=== PATIENT | male | born 1935 | race Caucasian/White ===

== ENCOUNTER 2016-11-20 07:58 | Inpatient (IN) | payer OTHER, MEDICARE ==
[~2016-11-20] VITALS: Ht 172.7 cm; Wt 96.2 kg
[~2016-11-20 07:58] MED LIST: ASPIRIN CHILDRE81 MG PO; ASPIRIN EC325 MG PO; ATORVASTATIN CA40 MG PO; ATORVASTATIN CA80 MG PO; AZOR 10 MG-40 M1 TAB PO; AZOR 5 MG-20 MG1 TAB PO; BENADRYL ALLERG25 M1 PO; CHROMIUM PICO500 MCG PO; CLOPIDOGREL75 M1 PO; EFFIENT10 MG PO; FISH OIL CONCEN1 SGL PO; GARLIC OIL1000 M1 PO; GARLIC PO; GUAIFENESIN-COD10 ML PO; HEPARIN 2525000 UNIT IV; IMDUR 60MG TAB60 MG PO; IRON325 M1 PO; ISOSORBIDE MONO30 M1 PO; LASIX20 MG PO; LASIX40 MG PO; LASIX80 M1 PO; LOPRESSOR 25MG25 MG PO; LOSARTAN POTASS25 MG PO; MAGNESIUM OXID400 MG PO; MAGNESIUM500 M2 PO; METOPROLOL SUCC25 M1 PO; METOPROLOL SUCC50 M1 PO; MORPHINE10 MG/ML IV; MS CONTIN30 MG PO; MULTIPLE VITAM1 EAC2 PO; NEXIUM 40MG40 MG PO; NITROSTAT 0.4MG1 BO2 SL; OMEGA-3 KRILL1 EAC3 PO; POTASSIUM GLUC550 M1 PO; RANEXA 500MG500 MG PO; SIMVASTATIN20 MG PO; THE MEDICINE S400 IU PO; TYLENOL TAB 32325 MG PO; VITAMIN D1000 IU PO; VITAMIN D32000 UNI1 PO; ZINC1 TAB PO; ZINC30 MG PO; ZINC50 M4 PO; [UNRECOGNIZED DRUG - OTHER] PO
--- NOTE | 2016-11-20 08:15 | NUR ---
80 Y/O MALE BIBA FROM HOME FOR EVAL OF SOB SINCE YESTERDAY; PT ARRIVES ALERT AND ORIENTED X 4, SPEAKING CLEARLY WITH NO DISTRESS OR DEFICITS NOTED. PT STATES HE BEGAN TO FEEL SOB YESTERDAY, WHICH HAS GOTTEN WORSE WITH ANY ACTIVITY OR EXERTION. DENIES CHEST PAIN. DENIES PAIN. DENIES N/V/D. DENIES CHANGES IN APPETITE/PO INTAKE. STATES "I JUST NEED THAT IV LASIX AND ILL BE ALL FIXED UP". SAT 94-95% ON RA. PT STATES HE IS CLAUSTROPHOBIC AND DOES NOT LIKE BEING IN A ROOM ALONE; ALSO REQUESTING TO STAY IN PERSONAL CLOTHES WITH DOOR OPEN - AGREEABLE TO STAYING ON RETAIL RESET [employer]. NORMAL SINUS WITH LBBB, RATE 80S EKG COMPLETE. WHITNEY Mckeon AT THE BEDSIDE
--- NOTE | 2016-11-20 08:22 | ED DYSPNEA/ASTHMA COMPLAINT ---
History of Present Illness General Chief Complaint: Dyspnea (COPD, CHF, Other) Stated Complaint: BIBA SOB Source: patient, old records, EMS Exam Limitations: no limitations Allergies Coded Allergies: acetaminophen (From VICODIN) (Intermediate, GI UPSET 11/20/16) gabapentin (From NEURONTIN) (Intermediate, INCREASED AGGITATION 11/20/16) hydrocodone (GI DISTRESS 11/20/16) oxycodone (GI DISTRESS 11/20/16) Triage Note: 80 Y/O MALE FELISHA FROM HOME FOR EVAL OF SOB SINCE YESTERDAY; PT ARRIVES ALERT AND ORIENTED X 4, SPEAKING CLEARLY WITH NO DISTRESS OR DEFICITS NOTED. PT STATES HE BEGAN TO FEEL SOB YESTERDAY, WHICH HAS GOTTEN WORSE WITH ANY ACTIVITY OR EXERTION. DENIES CHEST PAIN. DENIES PAIN. DENIES N/V/D. DENIES CHANGES IN APPETITE/PO INTAKE. STATES "I JUST NEED THAT IV LASIX AND ILL BE ALL FIXED UP". SAT 94-95% ON RA. PT STATES HE IS CLAUSTROPHOBIC AND DOES NOT LIKE BEING IN A ROOM ALONE; ALSO REQUESTING TO STAY IN PERSONAL CLOTHES WITH DOOR OPEN - AGREEABLE TO STAYING ON IT [employer]. NORMAL SINUS WITH LBBB, RATE 80S EKG COMPLETE. WHITNEY Mckeon AT THE BEDSIDE Triage Nurses Notes Reviewed? yes HPI: Patient is a 80-year-old male presents complaining of dyspnea. Dyspnea onset yesterday. Dyspnea is moderate at rest, worsens with minimal exertion. Positive associated orthopnea. Dyspnea awaken patient from sleep at approximately 4 AM this morning. Patient took a dose of his nitroglycerin at 4: 45 AM with mild improvement. Patient denies chest pain, palpitations, lower extremity edema, cough, fevers, chills. (SUSIE GREEN) Vital Signs & Intake/Output Vital Signs & Intake/Output Vital Signs Date Time Temp Pulse Resp B/P Pulse O2 O2 Flow FiO2 Ox Delivery Rate 11/20 1010 96.8 90 18 133/74 98 Room Air 11/20 0831 95 Room Air 11/20 0803 98.5 97 24 142/80 95 Room Air Reconcile Medications Aspirin (Aspirin*) 81 MG TAB.CHEW 1 TAB PO DAILY HEART HEALTH (Reported) Atorvastatin Calcium 80 MG TABLET 1 TAB PO DAILY CHOLESTEROL (Reported) Cholecalciferol (Vitamin D3) (Vitamin D3) 2,000 UNIT TABLET 1 TAB PO DAILY SUPPLEMENT (Reported) Citalopram Hydrobromide (Citalopram HBr) 20 MG TABLET 1 TAB PO DAILY MENTAL HEALTH (Reported) Clopidogrel Bisulfate (Clopidogrel) 75 MG TABLET 1 TAB PO DAILY BLOOD THINNER (Reported) Furosemide (Lasix) 80 MG TABLET 1 TAB PO DAILY WATER PILL (Reported) Garlic (Garlic Oil) 1,000 MG CAPSULE 1 CAP PO DAILY SUPPLEMENT (Reported) Isosorbide Mononitrate (Isosorbide Mononitrate ER) 30 MG TAB.ER.24H 3 TAB PO DAILY ANGINA (Reported) Krill/Om-3/Dha/Epa/Phospho/Ast ([place]-3 Krill Oil 1,000 MG) 1,000-230MG CAPSULE 1 CAP PO DAILY SUPPLEMENT (Reported) Losartan Potassium 50 MG TABLET 0.5 TAB PO DAILY HEART (Reported) Magnesium Oxide (Magnesium) 500 MG CAPSULE 1 CAP PO DAILY SUPPLEMENT ( Reported) Metoprolol Succinate 25 MG TAB 0.5 TAB PO DAILY HEART (Reported) Multivitamin (Multiple Vitamins) 1 EACH TABLET 2 TAB PO DAILY SUPPLEMENT ( Reported) Nitroglycerin 0.4 MG TAB.SUBL 1 TAB SL AD PRN CHEST PAIN (Reported) 1st sign of attack; may repeat every 5 minutes until relief; if pain persists after 3 tablets in 15 minutes, prompt medical att Robitussin AC (Guaifenesin-Codeine Syrup) 200 MG-20 MG/10 ML LIQUID 10 ML PO Q6P PRN COUGH Zinc Gluconate (ZINC) 50 MG TABLET 1 TAB PO DAILY SUPPLEMENT (Reported) (THAI CONTEH,JAZZY Zamudio) Past History Travel History Traveled to [place] past 21 day No Medical History Any Pertinent Medical History? see below for history Neurological: NONE EENT: NONE Cardiovascular: angina, CAD (- status post angioplasty X 7), CHF, hypertension, hyperlipidemia, myocardial infarction (X 3), STENT PLACEMENT Respiratory: NONE Gastrointestinal: NONE Hepatic: NONE Renal: nephrolithiasis Musculoskeletal: gout Psychiatric: anxiety, claustrophobia Endocrine: NONE Blood Disorders: NONE Cancer(s): NONE ELECTROLYSIS INVESTIGATOR/Reproductive: NONE Other Medical Hx: RETROPERITONEAL HEMATOMA History of MRSA: No History of VRE: No History of CDIFF: No Surgical History Surgical History: hernia repair-inguinal (left), hip replacement (right), CARDIAC STENTS Psychosocial History Who do you live with Patient/Self Services at Home None What is your primary language Nepalese Tobacco Use: Never used ETOH Use: occasional use Illicit Drug Use: denies illicit drug use Family History Family History, If Any: MOTHER FH: gastric cancer Relation not specified for: FH: CAD (coronary artery disease) Hx Contributory? No (SUSIE GREEN) Review of Systems Review of Systems Constitutional: Denies: chills, fever. EENTM: Reports: no symptoms. Respiratory: Reports: short of breath. Denies: cough. Cardiovascular: Reports: orthopena. Denies: chest pain, edema, peripheral edema. GI: Denies: abdominal pain, nausea, vomiting. Genitourinary: Reports: no symptoms. Musculoskeletal: Reports: back pain (X 1 WEEK, RADIATES DOWN LLE). Skin: Reports: no symptoms. Neurological/Psychological: Reports: no symptoms. Hematologic/Endocrine: Reports: no symptoms. Immunologic/Allergic: Reports: no symptoms. (SUSIE GREEN) Physical Exam Physical Exam General Appearance: well developed/nourished, alert, awake, anxious Head: atraumatic, normal appearance Eyes: Bilateral: normal appearance, PERRL, EOMI. Ears, Nose, Throat: normal pharynx, normal ENT inspection, hearing grossly normal Neck: normal inspection, supple, full range of motion Respiratory: normal breath sounds, chest non-tender, no respiratory distress, lungs clear Cardiovascular: regular rate/rhythm, systolic murmur Peripheral Pulses: 2+ dorsalis pedis (R), 2+ dorsalis pedis (L) Gastrointestinal: soft, non-tender Extremities: normal inspection, normal capillary refill, normal range of motion, no edema Neurologic/Psych: no motor/sensory deficits, awake, alert, oriented x 3 Skin: intact, normal color, warm/dry Lymphatic: no anterior cervical andrea Core Measures ACS in differential dx? Yes ASA ordered for poss ACS? Yes-ordered Severe Sepsis Present: No Septic Shock Present: No (SUSIE GREEN) Progress Differential Diagnosis: asthma, AMI, bronchitis, costochondritis, CHF, musculoskeletal pain, pulmonary embolism, pneumonia, unstable angina, dvt Diagnostic Imaging: Viewed by Me: Radiology Read. Discussed w/RAD: Radiology Read, Ultrasound. Radiology Impression: PATIENT: SUSIE HELTON PRESENT AGE: 80 PATIENT ACCOUNT NO: [id number] : 36 LOCATION: [facility] ORDERING PHYSICIAN: SUSIE OLSON SERVICE DATE: 11/20/16 EXAM TYPE: RAD - XRY-PORTABLE CHEST XRAY EXAMINATION: XR PORTABLE CHEST CLINICAL INFORMATION: Dyspnea with exertion COMPARISON: 09/26/2016 TECHNIQUE: Portable AP view of the chest was obtained. FINDINGS: Lung volumes are symmetric. There is prominence of the central vasculature suggesting congestion without overt edema. There is mild ill-defined opacity at the right lung base. No evidence of pneumothorax. Trace pleural effusions may be present. The cardiac silhouette remains enlarged. Calcification is present at the aortic arch. No acute osseous findings are seen. IMPRESSION: Central vascular congestion without overt edema. Possible small pleural effusions. Mild ill-defined right basilar opacity may reflect atelectasis or potentially developing consolidation. DICTATED BY: FLORES AMEZCUA MD DATE/TIME DICTATED:11/20/16900 ROOF TILER:QING DATE/ TIME TRANSCRIBED:11/20/16900 CONFIDENTIAL, DO NOT COPY WITHOUT APPROPRIATE AUTHORIZATION. <Electronically signed in Other Vendor System> SIGNED BY: FLORES AMEZCUA MD 11/20/16906, PATIENT: SUSIE HELTON PRESENT AGE: 80 PATIENT ACCOUNT NO: [id number] : 36 LOCATION: [facility] ORDERING PHYSICIAN: SUSIE OLSON SERVICE DATE: 11/20/16 EXAM TYPE: US - US-UNILATERAL VENOUS DOPPLER EXAMINATION: US TRIPLEX LOWER EXTREMITY, LEFT CLINICAL INFORMATION: Left calf pain and swelling. COMPARISON: None TECHNIQUE: Color-flow triplex imaging with spectral analysis and compression Doppler were performed on the left lower extremity. FINDINGS: The left common femoral vein is compressible and exhibits a normal phasic waveform; this suggests that the iliac veins are widely patent above. Within the proximal thigh, the visualized profunda femoris vein is patent and the examined greater saphenous vein and saphenofemoral junction are normal. Superficial femoral vein is patent in the proximal, mid and distal thigh. Popliteal vein appears normal to the level of the trifurcation. On color Doppler images, the visualized calf veins are unremarkable. No evidence of Rodriguez's cyst. IMPRESSION: No evidence of deep vein thrombosis in the left lower extremity. DICTATED BY: GUERRERO BA MD DATE/TIME DICTATED:11/20/161030 ROOF TILER:RAD.BELL DATE/TIME TRANSCRIBED:11/20/16 / 1031 CONFIDENTIAL, DO NOT COPY WITHOUT APPROPRIATE AUTHORIZATION. <Electronically signed in Other Vendor System> SIGNED BY: GUERRERO BA MD 11/20/16 1035 Initial ED EKG: sinus rhythm 91 bpm with LBBB. LBBB not present on previous ekg. Prior EKG: changed Rhythm Strip: normal sinus rhythm (SUSIE GREEN) Plan of Care: Orders Procedure Date/time Status Heart Healthy Diet 11/20 L Active TROPONIN LEVEL 11/20 1400 Active ECHOCARDIOGRAM 11/20 1031 Active Lab Add-on Test 11/20 1009 Active Lab Add-on Test 11/20 1008 Active Pathway - chart 11/20 1007 Active House Staff 11/20 1007 Active Patient Data 11/20 1007 Active Code Status 11/20 1007 Active Admit to inpatient 11/20 1001 Active THYROID STIMULATING HORMONE 11/20 0827 Active PARTIAL THROMBOPLASTIN TIME 11/20 0827 Active PROTHROMBIN TIME 11/20 0827 Active MAGNESIUM 11/20 0827 Active FREE T4 11/20 0827 Active Telemetry/Supervisor Sterile Processing 11/20 0818 Active TROPONIN LEVEL 11/20 0818 Active COMPREHENSIVE METABOLIC PANEL 11/20 0818 Active CBC WITHOUT DIFFERENTIAL 11/20 0818 Complete B-TYPE NATRIURETIC PEP (BNP) 11/20 0818 Active Intake & Output 11/20 0811 Active EKG 11/20 0801 Active VTE Mechanical Prophylaxis 11/20 UNK Active Telemetry/Supervisor Sterile Processing 11/20 UNK Active Current Medications Sig/Reji Start time Last Medication Dose Stop Time Status Admin Aspirin 81 MG DAILY 11/21 1000 UNVr (Aspirin) Cholecalciferol 2,000 IU DAILY 11/20 1045 AC (Vitamin D) Clopidogrel Bisulfate 75 MG DAILY 11/20 1045 AC (Plavix) Furosemide 80 MG 7:30 AM, & 4:30 PM 11/20 1045 AC (Lasix) Losartan Potassium 25 MG DAILY 11/20 1045 AC (Cozaar) Metoprolol Tartrate 12.5 MG DAILY 11/20 1045 UNVr (Lopressor) Citalopram 20 MG DAILY 11/20 1033 AC Hydrobromide (Celexa) Isosorbide 90 MG DAILY 11/20 1033 AC Mononitrate (Imdur) Heparin Sodium 25,000 UNIT Q24H 11/20 1030 UNVr (Porcine) (Heparin) Sodium Chloride 500 ML Atorvastatin Calcium 80 MG DAILY 11/20 1023 AC (Lipitor) Laboratory Tests 11/20/16 0827: Anion Gap 12, Estimated GFR 58 L, BUN/Creatinine Ratio 22.5, Glucose 115 H, Calcium 9.5, Magnesium Pending, Total Bilirubin 1.3, AST 33, ALT 46, Alkaline Phosphatase 90, Troponin I 0.13 *H, Xak-A-Oirifmdneoj Pept 1580 H, Total Protein 8.0, Albumin 4.5, Globulin 3.5, Albumin/Globulin Ratio 1.3, TSH Pending, Free T4 Pending, PT Pending, INR Pending, APTT Pending, CBC w Diff NO MAN DIFF REQ, RBC 4.14 L, MCV 96.1 H, MCH 31.9 H, RDW 14.7 H, MPV 6.4 L, Gran % 79.7 H, Lymphocytes % 11.6 L, Monocytes % 7.3, Eosinophils % 1.2, Basophils % 0.2, Absolute Granulocytes 5.3, Absolute Lymphocytes 0.8 L, Absolute Monocytes 0.5, Absolute Eosinophils 0.1, Absolute Basophils 0, PUBS MCHC 33.3 11/20/2016 9:30:44 AM: Results of labs and chest x-ray discussed with patient. Patient was discussed with and evaluated by Dr. Duggan. Dr. Duggan discussed patient with Dr. Contreras who will come to see patient in the ED. Patient denies chest pain. Complaining of left calf pain. Ultrasound of LLE ordered. (SUSIE GREEN) Comments: 11/20/2016 9:25:01 AM patient's case discussed with Dr. Contreras will evaluate the patient in the emergency department shortly. I've discussed this patient's EKG, labs and chest x-ray with Dr. Contreras. He reviewed his most recent EKG of August which showed an incomplete left bundle branch pattern. 11/20/2016 10:01:00 AM patient's case discussed with Dr. VARMA.TBA. (THAI CONTEH,JAZZY Zamudio) Departure Departure Disposition: STILL A PATIENT Condition: Stable Referrals: JEAN PIERRE CONTEH,DOMINIC Sanchez (PCP/Family) Departure Forms: Customer Survey General Discharge Information (SUSIE GREEN) Departure Clinical Impression Primary Impression: CHF exacerbation Qualifiers: Congestive heart failure type: unspecified congestive heart failure type Qualified Code: I50.9 - Heart failure, unspecified Secondary Impressions: Anemia Qualifiers: Anemia type: unspecified type Qualified Code: D64.9 - Anemia, unspecified Elevated brain natriuretic peptide (BNP) level Elevated BUN Elevated troponin Admission Note Spoke With: BHARATHI VARMA M.D Documentation of Exam: Documentation of any treatments & extenuating circumstances including Concerns Regarding Discharge (functional status, medication knowledge or non-compliance, living conditions, etc.) that warrant an admission rather than observation: Patient presents with severe exertional dyspnea. Chest x-ray central vascular congestion and the patient's BNP is elevated. This patient is not a good candidate for outpatient management given the exertional dyspnea. Compliance with outpatient treatment plan could cause worsening dyspnea, hypoxia, chest pain, syncope or . In addition the patient has a new left bundle branch pattern on EKG and elevated troponin. This patient very high risk of acute myocardial infarction cardiovascular collapse and . Given this and the patient's advanced age and medical comorbidities I feel he now requires hospitalization for continuous cardiac monitoring (to monitor for associated dysrhythmia) along with daily weights, monitoring her oxygen saturations and vital signs and cardiology consultation. Intake and output should also be monitored and the patient should be treated with Lasix to the point of a negative fluid balance. Troponins should also be monitored. I feel the patient will require a multiple day hospitalization. PA/TOP FRAME MAKER Co-Sign Statement Statement: ED Attending supervision documentation- [X] I saw and evaluated the patient. I have also reviewed all the pertinent lab results and diagnostic results. I agree with the findings and the plan of care as documented in the PA's/TOP FRAME MAKER's documentation. [] I have reviewed the ED Record and agree with the PA's/TOP FRAME MAKER's documentation. [] Additions or exceptions (if any) to the PAs/TOP FRAME MAKER's note and plan are summarized below: [] (THAI CONTEH,JAZZY Zamudio) Critical Care Note Critical Care Note Critical Care Time: non-applicable (SUSIE GREEN)
--- NOTE | 2016-11-20 08:29 | NUR ---
EVAL COMPLETE BY WHITNEY CAMILO. BLOODWORK SENT (LAV, SST X 2, BLUE, CRUZ) XRAY IN ROOM
[2016-11-20 08:35] LABS: ABSOLUTE BASOPHIL COUNT 0 /CUMM (0.0-0.2); ABSOLUTE EOSINOPHIL COUNT 0.1 /CUMM (0.0-0.7); ABSOLUTE GRANULOCYTE CT 5.3 /CUMM (1.4-6.5); ABSOLUTE LYMPH COUNT 0.8 /CUMM (1.2-3.4); ABSOLUTE MONOCYTE COUNT 0.5 /CUMM (0.10-0.60); BASOPHIL % 0.2 % (0.0-2.0); EOSINOPHIL % 1.2 % (0-5); GRANULOCYTE % 79.7 % (42.2-75.2); HEMATOCRIT 39.8 % (42-52); MEAN CORPUSCULAR HGB 31.9 PG (27.0-31.0); MEAN CORPUSCULAR HGB CONC 33.3 G/DL (33.0-37.0); MEAN CORPUSCULAR VOLUME 96.1 FL (80.0-94.0); MEAN PLATELET VOLUME 6.4 FL (7.4-10.4); PLATELET COUNT 188 /CUMM (130-400); RBC DISTRIBUTION WIDTH 14.7 % (11.5-14.5); RED BLOOD CELL CT 4.14 /CUMM (4.70-6.10); WHITE BLOOD CELL COUNT 6.7 /CUMM (4.8-10.8)
--- NOTE | 2016-11-20 08:37 | NUR ---
PT PROVIDED WITH GLASS OF WATER AND URINAL PER REQUEST OK WITH WHITNEY Mckeon FOR PT TO HAVE WATER
[2016-11-20] MEDS ORDERED: CITALOPRAM HBR20 MG PO (08:39)
[2016-11-20] MEDS ORDERED: LOSARTAN POTASS50 M1 PO (08:42)
[2016-11-20] MEDS ORDERED: ATORVASTATIN CA80 M1 PO (08:43)
[2016-11-20] MEDS ORDERED: ASPIRIN81 M4 PO (08:44)
[2016-11-20] MEDS ORDERED: NITROGLYCERIN0.4 M1 SL (08:46)
--- NOTE | 2016-11-20 09:07 | RADIOLOGY REPORT ---
EXAMINATION: XR PORTABLE CHEST CLINICAL INFORMATION: Dyspnea with exertion COMPARISON: 09/26/2016 TECHNIQUE: Portable AP view of the chest was obtained. FINDINGS: Lung volumes are symmetric. There is prominence of the central vasculature suggesting congestion without overt edema. There is mild ill-defined opacity at the right lung base. No evidence of pneumothorax. Trace pleural effusions may be present. The cardiac silhouette remains enlarged. Calcification is present at the aortic arch. No acute osseous findings are seen. IMPRESSION: Central vascular congestion without overt edema. Possible small pleural effusions. Mild ill-defined right basilar opacity may reflect atelectasis or potentially developing consolidation.
--- NOTE | 2016-11-20 09:15 | NUR ---
CRITICAL TEST RESULTS [id number] SUSIE HELTON 80 M TESTS AND RESULTS: TROPONIN 0.13 Results received and read back by: ARMIDA AGUILAR Results received date and time: 11/20/16 0916 The following provider was notified of the results, and read the results back: WHITNEY Mckeon Notified date and time: 11/20/16 at 0916
--- NOTE | 2016-11-20 09:39 | NUR ---
TO US VIA STRETCHER
--- NOTE | 2016-11-20 10:09 | NUR ---
BACK FROM US CONTINUES TO DENY CHEST PAIN. OFFERS NO COMPLAINTS. PT REMAINS NORMAL SINUS, LBB ON MONITOR. RATE 80'S MED WITH ASA PER MAR PT CONTINUES TO SPEAK IN LONG SENTENCES WITH NO RESP. DISTRESS NOTED. AWAITING ADMISSION
--- NOTE | 2016-11-20 10:10 | History & Physical ---
ROXANA BARAJAS MD 11/20/16 1010: General Information and HPI MD Statement: I have seen and personally examined SUSIE HELTON and documented this H&P. The patient is a 80 year old M who presented with a patient stated chief complaint of [chest pain]. Source of Information: patient, old records Exam Limitations: no limitations History of Present Illness: This is a 80-year-old male with history of multi vessel coronary S/p cardiac catherization in 2014 ANDartery disease with RCA OPERATIONS LEAD with collaterals from LAD and LCx coronary artery disease, with repeat cardiac catherization in which showed Instent restonsis in RCA , hypertension, diastolic heart failure who presents with complaint of chest pressure and orthopnea. The chest pressure has been present for the past 6 days, and is a 5 out of 10 in severity. There is no radiation. The discomfort is worse with lying flat. It has been intermittent over the past 3 days. He denies any leg swellings but did complain of left sided cough pain which has been going on for the last 2-3 days. Denies any recent history of bruising area. The patient has been compliant with his medications and has not noticed any leg swellings bilaterally. The patient is in discussion with his counter supervisor Dr. Contreras and his wedding day coordinator Dr. Hortensia Hidalgo , at [facility] to set an appointment at [facility] in [facility] for interventional removal off the stenosed stent in RCA. The patient denies any recent travels or any shortness of breath or cough. The patient completed a course of 7 days of oral Augmentin as an outpatient for his bronchitis in September 2016. In the ER the patient received aspirin and was currently chest pain-free when was evaluated by me. Allergies/Medications Allergies: Coded Allergies: gabapentin (From NEURONTIN) (Intermediate, INCREASED AGGITATION 11/20/16) prednisone (11/20/16) hydrocodone (GI DISTRESS 11/20/16) oxycodone (GI DISTRESS 11/20/16) Past History Travel History Traveled to [place] past 21 day No Medical History Neurological: NONE EENT: NONE Cardiovascular: angina, CAD (- status post angioplasty X 7), CHF, hypertension, hyperlipidemia, myocardial infarction (X 3), STENT PLACEMENT Respiratory: NONE Gastrointestinal: NONE Hepatic: NONE Renal: nephrolithiasis Musculoskeletal: gout Psychiatric: anxiety, claustrophobia Endocrine: NONE Blood Disorders: NONE Cancer(s): NONE 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 self Services at Home: None Primary Language: Marshallese Smoking Status: Never Smoked ETOH Use: occasional use Illicit Drug Use: denies illicit drug use Functional Ability ADLs Independent: dressing, eating, toileting, bathing. Ambulation: independent IADLs Independent: shopping, housework, finances, food prep, telephone, transportation , medication admin. Review of Systems Review of Systems Constitutional: Reports: see HPI. Cardiovascular: Reports: see HPI, chest pain, palpitations. Denies: edema, orthopena, peripheral edema. Respiratory: Reports: short of breath. Denies: cough, hemoptysis, orthopnea, sputum production, stridor. Genitourinary: Denies: dysuria, frequency, hematuria. Musculoskeletal: Reports: muscle pain. Skin: Denies: dryness, erythema, jaundice. Exam & Diagnostic Data Last 24 Hrs of Vital Signs/I&O Vital Signs Date Time Temp Pulse Resp B/P Pulse O2 O2 Flow FiO2 Ox Delivery Rate 11/20 1010 96.8 90 18 133/74 98 Room Air 11/20 0831 95 Room Air 11/20 0803 98.5 97 24 142/80 95 Room Air Intake & Output 11/20 1600 11/20 0800 11/20 0000 Intake Total Output Total Balance Patient 212 lb Weight Physical Exam General Appearance Alert, Oriented X3, Cooperative Skin No Rashes, No Breakdown HEENT Atraumatic, PERRLA, EOMI Neck Supple, No JVD, No thryomegaly Lymphatic Axillary nl Cardiovascular Regular Rate, Normal S1, Normal S2 Lungs Clear to Auscultation, Normal Air Movement Abdomen Normal Bowel Sounds, Soft, No Tenderness Neurological Normal Speech, Strength at 5/5 X4 Ext Extremities left-sided calf tenderness Diagnostic Data EKG Results New onset left-sided bundle branch block Assessment/Plan Assessment: This is a 80-year-old male with a past medical history of multiple vascular coronary artery disease status post to catheterization with Multivessel CAD with RCA OPERATIONS LEAD with collaterals from LAD and LCX. Instent restenosis of RCA stent with stent protrusion into the aorta . Patent LAD and OM1 stents. He presented to the [facility] emergency department for exertional dyspnea and shortness of breath along with chest pain which was relieved on receiving aspirin and nitrate therapy. Vitals at the time of admission showed: Temperature 96.8, respiration rate of 20, pulse rate of 99, blood pressure 149/ 68 Labs Normal WBC normal hematocrit and hemoglobin, absence of bands, creatinine of 1.3 , troponin of 0.13 Elevated proBNP EKG shows complete left bundle-branch block which is new from the previous EKG Chest x-ray shows vascular congestion Negative Doppler arterial ultrasound in the left lower extremity Assessment 1. Acute coronary syndrome most likely secondary to the restenosis of the right coronary artery stent 2. Acute on chronic CHF with new left bundle branch block on the EKG 3. History of hypertension 4. History dyslipidemia 5.Acute Left Calf tndernes in absence of any trauma-DVT or Rupture charley cyst needs to be ruled out Plan We'll admit the patient to telemetry Ms. start the medical management for acute coronary syndrome which includes high -dose statin, IV heparin, high-dose aspirin, Plavix, beta bettye We will also continue with patient's home medications of chronic angina including Nitrostat and nitrates Regular diet Repeat transthoracic echocardiogram due to new left bundle branch block trend troponins and EKG and to the peak B/L lower extremity dopplers. Dr. Contreras will try to arrange for the patient to go to a specialized chronic total occlusion Center in [facility] for further attempts to have the RCA opened. This would probably be done as an outpatient after discharge. Patient was full code As Ranked By This Provider Problem List: 1. Elevated BUN 2. Anemia Qualifiers Anemia type: unspecified type Qualified Code: D64.9 - Anemia, unspecified 3. Elevated brain natriuretic peptide (BNP) level Core Measures/Miscellaneous Acute Coronary Syndrome ACS Diagnosis: Yes Date of most recent Echo 07/04/15 Last Known EF % 45 GRISELDA/ARB For EF <40% Yes ASA W/I 24hr of admit Yes Beta-Bettye W/I 24hrs Yes LDL assessed W/I 24 hrs No Currently on Statin Yes Cerebrovascular Accident CVA/TIA Diagnosis: No Congestive Heart Failure CHF Diagnosis: Yes Date of most recent Echo: 07/04/15 Last Known EF %: 45 GRISELDA/ARB for EF <40%: Yes Venous Thromboembolism VTE Risk Factors: Acute medical illness, Age > 40 VTE Prophylaxis Ordered Inpt: Pharm- Heparin No Mech VTE prophylaxis d/t: No contraindications No VTE Pharm Prophylaxis d/t: No contraindications VTE Diagnosis: No VTE Type: NONE VTE Confirmed by (Test): NONE Severe Sepsis Severe Sepsis Present: No Septic Shock Septic Shock Present: No Miscellaneous Documentation Attending Case Discussed With: TRINIDAD URIOSTEGUI MD Primary Care Physician: DOMINIC GERENFIELD MD Patient sees these Specialists Cardiology Level of Patient Care: Telemetry TRINIDAD URIOSTEGUI MD 11/21/16 1246: General Information and HPI Allergies/Medications Home Med list Aspirin (Aspirin*) 81 MG TAB.CHEW 1 TAB PO DAILY HEART HEALTH (Reported) Atorvastatin Calcium 80 MG TABLET 1 TAB PO DAILY CHOLESTEROL (Reported) Cholecalciferol (Vitamin D3) (Vitamin D3) 2,000 UNIT TABLET 1 TAB PO DAILY SUPPLEMENT (Reported) Citalopram Hydrobromide (Citalopram HBr) 20 MG TABLET 1 TAB PO DAILY MENTAL HEALTH (Reported) Clopidogrel Bisulfate (Clopidogrel) 75 MG TABLET 1 TAB PO DAILY BLOOD THINNER (Reported) Furosemide (Lasix) 80 MG TABLET 1 TAB PO DAILY WATER PILL (Reported) Garlic (Garlic Oil) 1,000 MG CAPSULE 1 CAP PO DAILY SUPPLEMENT (Reported) Isosorbide Mononitrate (Isosorbide Mononitrate ER) 30 MG TAB.ER.24H 3 TAB PO DAILY ANGINA (Reported) Krill/Om-3/Dha/Epa/Phospho/Ast ([place]-3 Krill Oil 1,000 MG) 1,000-230MG CAPSULE 1 CAP PO DAILY SUPPLEMENT (Reported) Losartan Potassium 50 MG TABLET 0.5 TAB PO DAILY HEART (Reported) Metoprolol Succinate 25 MG TAB 0.5 TAB PO DAILY HEART (Reported) Multivitamin (Multiple Vitamins) 1 EACH TABLET 2 TAB PO DAILY SUPPLEMENT ( Reported) Nitroglycerin 0.4 MG TAB.SUBL 1 TAB SL AD PRN CHEST PAIN (Reported) 1st sign of attack; may repeat every 5 minutes until relief; if pain persists after 3 tablets in 15 minutes, prompt medical att Sandra AC (Guaifenesin-Codeine Syrup) 200 MG-20 MG/10 ML LIQUID 10 ML PO Q6P PRN COUGH Zinc Gluconate (ZINC) 50 MG TABLET 1 TAB PO DAILY SUPPLEMENT (Reported) Attending MD Review Statement Attending Statement Attending MD Statement: examined this patient, discuss w/resident/PA/AUTO BRAKE MECHANIC, agreed w/resident/PA/AUTO BRAKE MECHANIC, reviewed EMR data (avail) Attending Assessment/Plan: Agree with resident assessment and plan. Will continue heparin drip, ASA, Plavix, statin, cardiology consult, echocardiogram, continue home medications.
--- NOTE | 2016-11-20 10:15 | NUR ---
HOUSE STAFF INTO EVAL
[2016-11-20 10:26] LABS: PT 12.4 SEC (9.4-12.5); PTT 30 SEC (25-37)
--- NOTE | 2016-11-20 10:35 | ULTRASOUND REPORT ---
EXAMINATION: US TRIPLEX LOWER EXTREMITY, LEFT CLINICAL INFORMATION: Left calf pain and swelling. COMPARISON: None TECHNIQUE: Color-flow triplex imaging with spectral analysis and compression Doppler were performed on the left lower extremity. FINDINGS: The left common femoral vein is compressible and exhibits a normal phasic waveform; this suggests that the iliac veins are widely patent above. Within the proximal thigh, the visualized profunda femoris vein is patent and the examined greater saphenous vein and saphenofemoral junction are normal. Superficial femoral vein is patent in the proximal, mid and distal thigh. Popliteal vein appears normal to the level of the trifurcation. On color Doppler images, the visualized calf veins are unremarkable. No evidence of Rodriguez's cyst. IMPRESSION: No evidence of deep vein thrombosis in the left lower extremity.
--- NOTE | 2016-11-20 10:41 | Cons- Cardiology ---
General Information and HPI Consulting Request Date of Consult: 11/20/16 Requested By: TRINIDAD URIOSTEGUI MD Reason for Consult: Shortness of breath, CAD History of Present Illness: The patient is a 80-year-old male who follows up with me in the office with history of multivessel CAD, status post multiple stents. His most recent cardiac catheterization was in August 2016, at which time he was noted to have a chronically occluded stent in the RCA which could not be opened. He presents with complaint of shortness of breath which has been worsening over the past few weeks, and was safely worse over the past 24 hours. He has not had any chest discomfort. The shortness of breath is worse with activity. He notes that he tried to several snow but it was very difficult because of the shortness of breath. No palpitations. No diaphoresis. No lightheadedness or dizziness. No nausea or vomiting. Allergies/Medications Allergies: Coded Allergies: gabapentin (From NEURONTIN) (Intermediate, INCREASED AGGITATION 11/20/16) prednisone (11/20/16) hydrocodone (GI DISTRESS 11/20/16) oxycodone (GI DISTRESS 11/20/16) Home Med List: Aspirin (Aspirin*) 81 MG TAB.CHEW 1 TAB PO DAILY HEART HEALTH (Reported) Atorvastatin Calcium 80 MG TABLET 1 TAB PO DAILY CHOLESTEROL (Reported) Cholecalciferol (Vitamin D3) (Vitamin D3) 2,000 UNIT TABLET 1 TAB PO DAILY SUPPLEMENT (Reported) Citalopram Hydrobromide (Citalopram HBr) 20 MG TABLET 1 TAB PO DAILY MENTAL HEALTH (Reported) Clopidogrel Bisulfate (Clopidogrel) 75 MG TABLET 1 TAB PO DAILY BLOOD THINNER (Reported) Furosemide (Lasix) 80 MG TABLET 1 TAB PO DAILY WATER PILL (Reported) Garlic (Garlic Oil) 1,000 MG CAPSULE 1 CAP PO DAILY SUPPLEMENT (Reported) Isosorbide Mononitrate (Isosorbide Mononitrate ER) 30 MG TAB.ER.24H 3 TAB PO DAILY ANGINA (Reported) Krill/Om-3/Dha/Epa/Phospho/Ast ([place]-3 Krill Oil 1,000 MG) 1,000-230MG CAPSULE 1 CAP PO DAILY SUPPLEMENT (Reported) Losartan Potassium 50 MG TABLET 0.5 TAB PO DAILY HEART (Reported) Magnesium Oxide (Magnesium) 500 MG CAPSULE 1 CAP PO DAILY SUPPLEMENT ( Reported) Metoprolol Succinate 25 MG TAB 0.5 TAB PO DAILY HEART (Reported) Multivitamin (Multiple Vitamins) 1 EACH TABLET 2 TAB PO DAILY SUPPLEMENT ( Reported) Nitroglycerin 0.4 MG TAB.SUBL 1 TAB SL AD PRN CHEST PAIN (Reported) 1st sign of attack; may repeat every 5 minutes until relief; if pain persists after 3 tablets in 15 minutes, prompt medical att Sandra AC (Guaifenesin-Codeine Syrup) 200 MG-20 MG/10 ML LIQUID 10 ML PO Q6P PRN COUGH Zinc Gluconate (ZINC) 50 MG TABLET 1 TAB PO DAILY SUPPLEMENT (Reported) Current Medications: Current Medications Sig/Reji Start time Last Medication Dose Route Stop Time Status Admin Aspirin 81 MG DAILY 11/21 1000 AC PO Aspirin 0 .STK-MED ONE 11/20 939 DC PO Aspirin 325 MG ONCE ONE 11/20 929 DC 11/20 PO 11/20 930 1011 Atorvastatin Calcium 80 MG DAILY 11/20 1023 AC PO Cholecalciferol 2,000 IU DAILY 11/20 1045 AC PO Citalopram 20 MG DAILY 11/20 1033 AC Hydrobromide PO Clopidogrel Bisulfate 75 MG DAILY 11/20 1045 AC PO Furosemide 80 MG 7:30 AM, & 4:30 PM 11/20 1045 AC IV Heparin Sodium 25,000 UNIT Q24H 11/20 1030 AC (Porcine) IV Sodium Chloride 500 ML Isosorbide 90 MG DAILY 11/20 1033 AC Mononitrate PO Losartan Potassium 25 MG DAILY 11/20 1108 AC PO Losartan Potassium 25 MG DAILY 11/20 1045 AC PO Metoprolol Succinate 12.5 MG DAILY 11/20 1045 AC PO Review of Systems Review of Systems: No rash. No tremor. No melena. No syncope. All other systems were reviewed, and were noted to be negative. Past History Travel History Traveled to [place] past 21 day No Medical History Neurological: NONE EENT: NONE Cardiovascular: angina, CAD (- status post angioplasty X 7), CHF, hypertension, hyperlipidemia, myocardial infarction (X 3), STENT PLACEMENT Respiratory: NONE Gastrointestinal: NONE Hepatic: NONE Renal: nephrolithiasis Musculoskeletal: gout Psychiatric: anxiety, claustrophobia Endocrine: NONE Blood Disorders: NONE Cancer(s): NONE [place]/Reproductive: NONE Other Medical Hx: RETROPERITONEAL HEMATOMA Surgical History Surgical History: hernia repair-inguinal (left), hip replacement (right), CARDIAC STENTS Family History Relations & Conditions If Any: MOTHER FH: gastric cancer Relation not specified for: FH: CAD (coronary artery disease) Psychosocial History Who Do You Live With? self Services at Home: None Primary Language: Bulgarian ETOH Use: occasional use Illicit Drug Use: denies illicit drug use Functional Ability ADLs Independent: dressing, eating, toileting, bathing. Ambulation: independent IADLs Independent: shopping, housework, finances, food prep, telephone, transportation , medication admin. Exam & Diagnostic Data Vital Signs and I&O Vital Signs Date Time Temp Pulse Resp B/P Pulse O2 O2 Flow FiO2 Ox Delivery Rate 11/20 1010 96.8 90 18 133/74 98 Room Air 11/20 0831 95 Room Air 11/20 0803 98.5 97 24 142/80 95 Room Air Intake & Output 11/20 1600 11/20 0800 11/20 0000 11/19 1600 11/19 0800 11/19 0000 Intake Total Output Total Balance Patient 214 lb Weight Physical Exam: Gen: The patient is in no acute distress HEENT: Normal nose, ears, and oropharynx. Pupils equal bilaterally. Conjunctiva normal. Neck: Supple with no JVD, no masses, and no thyromegaly Lungs: Scattered rales bilaterally with normal respiratory effort Heart: RRR, S1, S2, no murmurs. No peripheral edema, 2+ pulses in the lower extremities bilaterally Abdomen: Soft, nontender, no masses. No hepatomegaly. No splenomegaly Extremities: No clubbing or cyanosis. Normal muscle strength in the upper and lower extremities Skin: Normal skin turgor with no skin ulcers or lesions noted. Neuro: Cranial nerves intact. Sensation intact Psych: Alert and oriented 3 with appropriate affect Labs/Maco Results: Laboratory Tests 11/20 826 Chemistry Sodium (137 - 145 mmol/L) 142 Potassium (3.5 - 5.1 mmol/L) 4.7 Chloride (98 - 107 mmol/L) 100 Carbon Dioxide (22 - 30 mmol/L) 30 Anion Gap (5 - 16) 12 BUN (9 - 20 mg/dL) 27 H Creatinine (0.7 - 1.2 mg/dL) 1.2 Estimated GFR (>60 ml/min) 58 L BUN/Creatinine Ratio (7 - 25 %) 22.5 Glucose (65 - 99 mg/dL) 115 H Calcium (8.4 - 10.2 mg/dL) 9.5 Magnesium (1.6 - 2.3 mg/dL) Pending Total Bilirubin (0.2 - 1.3 mg/dL) 1.3 AST (17 - 59 U/L) 33 ALT (21 - 72 U/L) 46 Alkaline Phosphatase (< 127 U/L) 90 Troponin I (<0.11 ng/ml) 0.13 *H Tix-L-Wnjivvlcyga Pept (<125 pg/mL) 1580 H Total Protein (6.3 - 8.2 g/dL) 8.0 Albumin (3.5 - 5.0 g/dL) 4.5 Globulin (1.9 - 4.2 gm/dL) 3.5 Albumin/Globulin Ratio (1.1 - 2.2 %) 1.3 TSH (0.270 - 4.200 uIU/mL) Pending Free T4 (0.78 - 2.44 ng/dL) Pending Coagulation PT (9.4 - 12.5 SEC) 12.4 INR (0.90 - 1.17) 1.18 H APTT (25 - 37 SEC) 30 Hematology CBC w Diff NO MAN DIFF REQ WBC (4.8 - 10.8 /CUMM) 6.7 RBC (4.70 - 6.10 /CUMM) 4.14 L Hgb (14.0 - 18.0 G/DL) 13.2 L Hct (42 - 52 %) 39.8 L MCV (80.0 - 94.0 FL) 96.1 H MCH (27.0 - 31.0 PG) 31.9 H RDW (11.5 - 14.5 %) 14.7 H Plt Count (130 - 400 /CUMM) 188 MPV (7.4 - 10.4 FL) 6.4 L Gran % (42.2 - 75.2 %) 79.7 H Lymphocytes % (20.5 - 51.1 %) 11.6 L Monocytes % (1.7 - 9.3 %) 7.3 Eosinophils % (0 - 5 %) 1.2 Basophils % (0.0 - 2.0 %) 0.2 Absolute Granulocytes (1.4 - 6.5 /CUMM) 5.3 Absolute Lymphocytes (1.2 - 3.4 /CUMM) 0.8 L Absolute Monocytes (0.10 - 0.60 /CUMM) 0.5 Absolute Eosinophils (0.0 - 0.7 /CUMM) 0.1 Absolute Basophils (0.0 - 0.2 /CUMM) 0 PUBS MCHC (33.0 - 37.0 G/DL) 33.3 Diagnostic Data EKG Results EKG tracing is independently reviewed, and reveals NSR at 91 with LBBB. T CXR Results Central vascular congestion without overt edema. Possible small pleural effusions. Mild ill-defined right basilar opacity may reflect atelectasis or potentially developing consolidation. Other Results Left lower extremity Doppler study: No evidence of deep vein thrombosis in the left lower extremity. Echocardiogram 07/24/15: Mild left ventricular dilatation. Mildly reduced left ventricular systolic function. Mild global hypokinesis. Left ventricular ejection fraction is estimated at 45-50 %. Mild right atrial dilatation. Mild left atrial dilatation. Mild mitral regurgitation. Mild aortic stenosis. Trace tricuspid regurgitation. Trace pulmonic regurgitation. Mild aortic regurgitation. Cardiac catheterization August 29, 2016: 1. Multivessel CAD with RCA PHYSIOTHERAPY ASSISTANT with collaterals from LAD and LCX. Instent restenosis of RCA stent with stent protrusion into the aorta . Patent LAD and OM1 stents. 2. Borderline elevated LV filling pressures. 3. Failed attempt at RCA PHYSIOTHERAPY ASSISTANT PCI both anterograde and retrograde. 4. Continue aspirin 81 mg daily and Plavix 75 mg daily ( current regimen) 5. May need referral to a specialized PHYSIOTHERAPY ASSISTANT center if symptoms persist. Assessment/Plan Assessment/Plan The patient is 80-year-old male with multivessel coronary artery disease, known to have chronic total occlusion of the RCA. He resents with recent worsening of his shortness of breath and left lower extremity pain. He has not had any recent chest discomfort. He is noted to have a new left bundle-branch block on EKG. Troponin is mildly elevated. Chest x-ray is consistent with acute heart failure with reduced ejection fraction. Recommendations: * Monitor on telemetry * Check serial troponin * IV heparin per protocol * Lasix 80 mg IV every 12 hours * I will try to arrange for the patient to go to a specialized chronic total occlusion center at [facility] for further attempts to have the RCA opened. This would probably be done as an outpatient after discharge. Consult Acknowledgment - Thank you for your consult request.
--- NOTE | 2016-11-20 10:50 | NUR ---
PT ADMITTED TO ROOM 172-1
--- NOTE | 2016-11-20 11:24 | NUR ---
HEPARIN DRIP INFUSING PER MAR. PER TEGAN, PT HAS REFUSED RECTAL EXAM. DENIES NOTING RED STOOLS. OK TO START DRIP PER MD. WEIGHT 212.2 ON SCALE. 96.2KG. TO RECEIVE: 12 UNITS/KG/HR - REACHES MAX DOSE. HEPARIN INFUSING AT 20 ML/HR AT THIS TIME. VERIFIED WITH MITCH MORAES.
--- NOTE | 2016-11-20 11:36 | NUR ---
2ND IV EST. MED WITH PO PILLS PER MAR. TOLERATED ALL WELL, WITH MILK (PER REQUEST) PT EATING - OK WITH PA
--- NOTE | 2016-11-20 11:49 | NUR ---
MED WITH LASIX PER MAR.
--- NOTE | 2016-11-20 11:56 | NUR ---
REPORT GIVEN TO KAREN ON [facility] CALLED
[2016-11-20 13:12] VITALS: BP 148/60
[2016-11-20 16:40] VITALS: BP 132/80
--- NOTE | 2016-11-20 21:03 | Discharge Summary ---
Visit Information Visit Dates Admission Date: 11/20/16 Discharge Date: 11/21/16 Hospital Course Course Attending Physician: TRINIDAD URIOSTEGUI MD Primary Care Physician: DOMINIC GREENFIELD MD Hospital Course: This is a 80-year-old male with a past medical history of multiple vascular coronary artery disease status post to catheterization with Multivessel CAD with RCA TRUSS P[employer]PER with collaterals from LAD and LCX. Instent restenosis of RCA stent with stent protrusion into the aorta . Patent LAD and OM1 stents. He presented to the [facility] emergency department for exertional dyspnea and shortness of breath along with chest pain which was relieved on receiving aspirin and nitrate therapy. Vitals at the time of admission showed: Temperature 96.8, respiration rate of 20, pulse rate of 99, blood pressure 149/ 68 Labs Normal WBC normal hematocrit and hemoglobin, absence of bands, creatinine of 1.3 , troponin of 0.13 Elevated proBNP EKG shows complete left bundle-branch block which is new from the previous EKG Chest x-ray shows vascular congestion Negative Doppler arterial ultrasound in the left lower extremity 1. Acute coronary syndrome most likely secondary to the restenosis of the right coronary artery stent 2. Acute on chronic CHF with new left bundle branch block on the EKG 3. History of hypertension 4. History dyslipidemia 5.Acute Left Calf tndernes in absence of any trauma- Hospital course The patient was treated initially for the medical management of acute coronary syndrome. The patient was started on IV heparin, high-dose statin, and aspirin therapy. Rest of his home medications which included a beta ángel and ARB were continued. "" Being slightly overload the patient was also given IV diurese is in the form of IV Lasix 80 mg twice daily. The patient tolerated the therapy well and lost 5 pounds on diuresing The patient was discharged with the same dose of Lasix 80 mg daily at home. The patient was given exercise instructions to call Dr. Contreras on ThursdayOctober and set an appointment for the transfer to [facility] for repeat cardiac catheterization and opening of the stenosed stent. No changes in the patient's medications were made except that we asked the patient not to take magnesium supplementation as well as magnesium levels were greater than 3.2 Regarding the patient's left cough tenderness the Doppler lower extremity were performed and no evidence of any ruptured Rodriguez's cyst or DVT was found. The time of discharge the patient did not have left calf pain Allergies: Coded Allergies: gabapentin (From NEURONTIN) (Intermediate, INCREASED AGGITATION 11/20/16) prednisone (11/20/16) hydrocodone (GI DISTRESS 11/20/16) oxycodone (GI DISTRESS 11/20/16) Pertinent Lab Results: Laboratory Tests 11/21 11/21 11/20 0400 0320 2014 Chemistry Sodium (137 - 145 mmol/L) 142 Potassium (3.5 - 5.1 mmol/L) 4.2 Chloride (98 - 107 mmol/L) 100 Carbon Dioxide (22 - 30 mmol/L) 31 H Anion Gap (5 - 16) 12 BUN (9 - 20 mg/dL) 33 H Creatinine (0.7 - 1.2 mg/dL) 1.4 H Estimated GFR (>60 ml/min) 49 L BUN/Creatinine Ratio (7 - 25 %) 23.6 Magnesium (1.6 - 2.3 mg/dL) 3.6 H Troponin I (<0.11 ng/ml) 0.15 *H 0.17 *H Coagulation APTT (25 - 37 SEC) > 120 *H 44 H Hematology CBC w Diff NO MAN DIFF REQ WBC (4.8 - 10.8 /CUMM) 6.4 RBC (4.70 - 6.10 /CUMM) 4.32 L Hgb (14.0 - 18.0 G/DL) 13.8 L Hct (42 - 52 %) 41.2 L MCV (80.0 - 94.0 FL) 95.5 H MCH (27.0 - 31.0 PG) 31.9 H RDW (11.5 - 14.5 %) 14.7 H Plt Count (130 - 400 /CUMM) 184 MPV (7.4 - 10.4 FL) 6.9 L Gran % (42.2 - 75.2 %) 61.6 Lymphocytes % (20.5 - 51.1 %) 25.7 Monocytes % (1.7 - 9.3 %) 8.9 Eosinophils % (0 - 5 %) 3.5 Basophils % (0.0 - 2.0 %) 0.3 Absolute Granulocytes (1.4 - 6.5 /CUMM) 3.9 Absolute Lymphocytes (1.2 - 3.4 /CUMM) 1.6 Absolute Monocytes (0.10 - 0.60 /CUMM) 0.6 Absolute Eosinophils (0.0 - 0.7 /CUMM) 0.2 Absolute Basophils (0.0 - 0.2 /CUMM) 0 PUBS MCHC (33.0 - 37.0 G/DL) 33.4 11/20 11/20 11/20 1700 1430 0827 Chemistry Sodium (137 - 145 mmol/L) 142 Potassium (3.5 - 5.1 mmol/L) 4.7 Chloride (98 - 107 mmol/L) 100 Carbon Dioxide (22 - 30 mmol/L) 30 Anion Gap (5 - 16) 12 BUN (9 - 20 mg/dL) 27 H Creatinine (0.7 - 1.2 mg/dL) 1.2 Estimated GFR (>60 ml/min) 58 L BUN/Creatinine Ratio (7 - 25 %) 22.5 Glucose (65 - 99 mg/dL) 115 H Calcium (8.4 - 10.2 mg/dL) 9.5 Magnesium (1.6 - 2.3 mg/dL) 2.3 Total Bilirubin (0.2 - 1.3 mg/dL) 1.3 AST (17 - 59 U/L) 33 ALT (21 - 72 U/L) 46 Alkaline Phosphatase (< 127 U/L) 90 Troponin I (<0.11 ng/ml) Cancelled 0.15 *H 0.13 *H Int-P-Oteqttuqmgh Pept (<125 pg/mL) 1580 H Total Protein (6.3 - 8.2 g/dL) 8.0 Albumin (3.5 - 5.0 g/dL) 4.5 Globulin (1.9 - 4.2 gm/dL) 3.5 Albumin/Globulin Ratio (1.1 - 2.2 %) 1.3 TSH (0.270 - 4.200 uIU/mL) 4.460 H Free T4 (0.78 - 2.44 ng/dL) 1.22 Coagulation PT (9.4 - 12.5 SEC) 12.4 INR (0.90 - 1.17) 1.18 H APTT (25 - 37 SEC) 30 Hematology CBC w Diff NO MAN DIFF REQ WBC (4.8 - 10.8 /CUMM) 6.7 RBC (4.70 - 6.10 /CUMM) 4.14 L Hgb (14.0 - 18.0 G/DL) 13.2 L Hct (42 - 52 %) 39.8 L MCV (80.0 - 94.0 FL) 96.1 H MCH (27.0 - 31.0 PG) 31.9 H RDW (11.5 - 14.5 %) 14.7 H Plt Count (130 - 400 /CUMM) 188 MPV (7.4 - 10.4 FL) 6.4 L Gran % (42.2 - 75.2 %) 79.7 H Lymphocytes % (20.5 - 51.1 %) 11.6 L Monocytes % (1.7 - 9.3 %) 7.3 Eosinophils % (0 - 5 %) 1.2 Basophils % (0.0 - 2.0 %) 0.2 Absolute Granulocytes (1.4 - 6.5 /CUMM) 5.3 Absolute Lymphocytes (1.2 - 3.4 /CUMM) 0.8 L Absolute Monocytes (0.10 - 0.60 /CUMM) 0.5 Absolute Eosinophils (0.0 - 0.7 /CUMM) 0.1 Absolute Basophils (0.0 - 0.2 /CUMM) 0 PUBS MCHC (33.0 - 37.0 G/DL) 33.3 Disposition Summary Disposition Principal Diagnosis: ACS Additional Diagnosis: Multivessel disease 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 Medications at Discharge Discharge Medications: Stop taking the following medications: Magnesium Oxide (Magnesium) 500 MG CAPSULE ORAL DAILY Continue taking these medications: Multivitamin (Multiple Vitamins) 1 EACH TABLET 2 Tablet ORAL DAILY Krill/Om-3/Dha/Epa/Phospho/Ast ([place]-3 Krill Oil 1,000 MG) 1,000-230MG CAPSULE 1 Capsule ORAL DAILY Clopidogrel Bisulfate (Clopidogrel) 75 MG TABLET 1 Tablet ORAL DAILY Comments: Last Taken:11/21/16 Time:1000 Isosorbide Mononitrate (Isosorbide Mononitrate ER) 30 MG TAB.ER.24H 3 Tablet ORAL DAILY Comments: Last Taken:11/21/16 Time:1000 Metoprolol Succinate (Metoprolol Succinate) 25 MG TAB 0.5 Tablet ORAL DAILY Comments: Last Taken:11/21/16 Time:1000 Garlic (Garlic Oil) 1,000 MG CAPSULE 1 Capsule ORAL DAILY Cholecalciferol (Vitamin D3) (Vitamin D3) 2,000 UNIT TABLET 1 Tablet ORAL DAILY Comments: Last Taken:11/21/16 Time:1000 Zinc Gluconate (ZINC) 50 MG TABLET 1 Tablet ORAL DAILY Furosemide (Lasix) 80 MG TABLET 1 Tablet ORAL DAILY Comments: Last Taken:11/21/16 Time:0730 GIVNE IN IV FORM Robitussin AC (Guaifenesin-Codeine Syrup) 200 MG-20 MG/10 ML LIQUID 10 Milliliters ORAL EVERY SIX HOURS NEEDED as needed for COUGH Qty = 240 Citalopram Hydrobromide (Citalopram HBr) 20 MG TABLET 1 Tablet ORAL DAILY Qty = 90 Comments: Last Taken:11/21/16 Time:1000 Losartan Potassium (Losartan Potassium) 50 MG TABLET 0.5 Tablet ORAL DAILY Qty = 45 Comments: Last Taken:11/21/16 Time:1000 Atorvastatin Calcium (Atorvastatin Calcium) 80 MG TABLET 1 Tablet ORAL DAILY Qty = 90 Comments: Last Taken:11/21/16 Time:1000 Aspirin (Aspirin*) 81 MG TAB.CHEW 1 Tablet ORAL DAILY Comments: Last Taken:11/21/16 Time:1000 Nitroglycerin (Nitroglycerin) 0.4 MG TAB.SUBL 1 Tablet SUBLINGUAL As Directed as needed for CHEST PAIN Instructions: 1st sign of attack; may repeat every 5 minutes until relief; if pain persists after 3 tablets in 15 minutes, prompt medical att Copies To: JEAN PIERRE CONTEH,DOMINIC Sanchez; PAUL CONTEH,AUSTYN
[2016-11-20 21:08] LABS: PTT 44 SEC (25-37)
[2016-11-21 00:27] VITALS: BP 118/72
[2016-11-21 04:29] LABS: ABSOLUTE BASOPHIL COUNT 0 /CUMM (0.0-0.2); ABSOLUTE EOSINOPHIL COUNT 0.2 /CUMM (0.0-0.7); ABSOLUTE GRANULOCYTE CT 3.9 /CUMM (1.4-6.5); ABSOLUTE LYMPH COUNT 1.6 /CUMM (1.2-3.4); ABSOLUTE MONOCYTE COUNT 0.6 /CUMM (0.10-0.60); BASOPHIL % 0.3 % (0.0-2.0); EOSINOPHIL % 3.5 % (0-5); GRANULOCYTE % 61.6 % (42.2-75.2); HEMATOCRIT 41.2 % (42-52); MEAN CORPUSCULAR HGB 31.9 PG (27.0-31.0); MEAN CORPUSCULAR HGB CONC 33.4 G/DL (33.0-37.0); MEAN CORPUSCULAR VOLUME 95.5 FL (80.0-94.0); MEAN PLATELET VOLUME 6.9 FL (7.4-10.4); PLATELET COUNT 184 /CUMM (130-400); RBC DISTRIBUTION WIDTH 14.7 % (11.5-14.5); RED BLOOD CELL CT 4.32 /CUMM (4.70-6.10); WHITE BLOOD CELL COUNT 6.4 /CUMM (4.8-10.8)
--- NOTE | 2016-11-21 04:59 | PN- Housestaff ---
Subjective Follow-up For: acute coronary syndrome chest pain and elevation in troponins Tele-Events Since Last Visit: The patient remained in normal sinus rhythm overnight, had a 19 beat run of V. tach while walking today Subjective: Patient is doing better. In good spirits willing to be discharged today Review of Systems Constitutional: Reports: see HPI. Objective Last 24 Hrs of Vital Signs/I&O Vital Signs Date Time Temp Pulse Resp B/P Pulse O2 O2 Flow FiO2 Ox Delivery Rate 11/21 0756 98.2 85 20 134/80 92 Room Air 11/21 0027 97.5 82 20 118/72 96 11/21 0000 Room Air 11/20 1640 98.1 78 20 132/80 92 11/20 1312 98.2 92 20 148/60 94 Room Air 11/20 1141 96.8 99 20 149/68 11/20 1138 96.8 99 20 149/68 11/20 1138 96.8 99 20 149/68 11/20 1137 96.8 99 20 149/68 11/20 1136 99 20 149/68 94 Room Air 11/20 1010 96.8 90 18 133/74 98 Room Air 11/20 0831 95 Room Air Intake & Output 11/21 1600 11/21 0800 11/21 0000 Intake Total 167 560 Output Total 850 Balance 167 -290 Intake, IV 167 160 Intake, Oral 400 Output, Urine 850 Physical Exam General Appearance: Alert, Oriented X3, Cooperative Skin: No Rashes, No Breakdown HEENT: Atraumatic, PERRLA Neck: Supple, No JVD Lymphatic: Axillary nl, Cervical nl Cardiovascular: Regular Rate, Normal S1, Normal S2 Lungs: Clear to Auscultation, Normal Air Movement Abdomen: Soft, No Tenderness Extremities: No Edema Assessment/Plan Assessment: This is a 80-year-old male multivessel coronary artery disease who presented to the [facility] with chest pain and shortness of breath. The patient was evaluated in the ER for acute coronary syndrome with and EKG showed a new complete left bundle branch block. Assessment 1. Multivessel coronary artery disease status post restenosis of the stent in the right coronary arteries 2. Elevated troponins 2. Chronic systolic dysfunction 3. History of hypertension 4. History of hyperlipidemia . Acute left calf pain 6. Nonsustained runs V. tach Plan The patient has been maintained on IV heparin and elevation in troponin and the new onset of left bundle branch block on the EKG Troponins have trended down The patient needs to be transferred to cardiac catheterization for the opening of the stenosed stent in the right coronary artery. This is being arranged by Dr. Contreras and the patient is scheduled to be discharged today and have an appointment at [facility] in [place] on 11/24/2016 for repeat cardiac catheterization. Considering the patient does not have any chest pain and has been stabilized in remarkably medically in the hospital in less than 24 hours the patient can be safely discharged to home today. (Discontinue the IV heparin at this point and continue with aggressive medical management which includes a dual antiplatelet therapy and a beta ángel Change IV Lasix to by mouth Lasix 80 mg daily We will check electrolytes(as the patient is on IV Lasix and had a 19 beat run of V. tach) Patient is eager to be discharged today, but it could be feasible to monitor him for the next 24 hours and then possible discharge in the morning Doppler arterial ultrasound has been negative for any DVT DVT prophylaxis at all times Patient is full code The patient is stable for discharge today after making a remarkable recovery in the hospital. Dr. Cuenca, the covering registered nurse hh case manager Dr. Quezada with reviewed the transthoracic echocardiogram done on 11/20/2016 and the results of the echo did not show any recent or acute changes from the previous transthoracic echocardiogram. Problem List: 1. Elevated BUN 2. Anemia 3. Elevated brain natriuretic peptide (BNP) level 4. CHF exacerbation Pain Ratin Pain Location: left calf Pain Goal: Remain pain free Pain Plan: po tylenol as needed Tomorrow's Labs & Rationales: cbc bep
[2016-11-21 05:39] LABS: PTT > 120 SEC (25-37)
[2016-11-21 07:56] VITALS: BP 134/80
[2016-11-21 08:26] VITALS: BP 134/64
--- NOTE | 2016-11-21 10:45 | Patient Discharge Instructions ---
Discharge Instructions General Discharge Information You were seen/treated for: shortness of breath and CP You had these procedures: none Special Instructions: please F/u with your PCP Acute Coronary Syndrome Inclusion Criteria At DC or during hospital stay patient has or had the following: ACS DIAGNOSIS Yes Discharge Core Measures Meds if any: Prescribed or Continued at Discharge GRISELDA/ARB if EF <40% Yes Aspirin Yes Beta-Bettye Yes Statin Yes Meds if any: NOT Prescribed or Continued at Discharge Congestive Heart Failure Inclusion Criteria At DC or during hospital stay patient has or had the following: CHF DIAGNOSIS Yes Discharge Core Measures Meds if any: Prescribed or Continued at Discharge GRISELDA/ARB for EF <40% Yes Meds if any: NOT Prescribed or Continued at Discharge Cerebrovascular accident Inclusion Criteria At DC or during hospital stay patient has or had the following: CVA/TIA Diagnosis No Discharge Core Measures Meds if any: Prescribed or Continued at Discharge Meds if any: NOT Prescribed or Continued at Discharge Venous thromboembolism Inclusion Criteria VTE Diagnosis No VTE Type NONE VTE Confirmed by (Test) NONE Discharge Core Measures - Per Current guidelines, there needs to be overlap - treatment for the first 5 days of Warfarin therapy. - If discharged on Warfarin prior to 5 days of - overlap therapy, the patient will need to be - assessed for post discharge needs including - *Post discharge parental anticoagulation - *Warfarin and/or parental anticoagulation education - *Follow up date to check INR post discharge At least 5 days overlap therapy as Inpatient No Meds if any: Prescribed or Continued at Discharge Note: Overlap Therapy is Warfarin and Anticoagulant Meds if any: NOT Prescribed or Continued at Discharge
--- NOTE | 2016-11-21 11:42 | PN- Cardiology ---
Subjective Subjective: The patient is doing well today. Ambulating with no symptoms or issues. Overnight monitoring analyst showed intermittent episodes of ventricular quadruplets (multiform). No significant sustained ventricular arrhythmias noted. The patient is anxious to go home and hopes to leave before 11 AM if possible. Overall situation discussed with the patient. Objective Vital Signs and I&Os Vital Signs Date Time Temp Pulse Resp B/P Pulse O2 O2 Flow FiO2 Ox Delivery Rate 11/21 08 134/64 11/21 08 134/64 11/21 0825 134/68 11/21 0756 98.2 85 20 134/80 92 Room Air 11/21 0027 97.5 82 20 118/72 96 11/21 0000 Room Air 11/20 1640 98.1 78 20 132/80 92 11/20 1312 98.2 92 20 148/60 94 Room Air Intake & Output 11/21 1600 11/21 0800 11/21 0000 11/20 1600 11/20 0811/20 0000 Intake Total 167 560 Output Total 850 Balance 167 -290 Intake, IV 167 160 Intake, Oral 400 Output, Urine 850 Patient 212 lb Weight Physical Exam: General Appearance Alert, Oriented X3, Cooperative Skin No Rashes, No Breakdown HEENT Atraumatic, PERRLA, EOMI Neck Supple, No JVD, No thryomegaly Lymphatic Axillary nl Cardiovascular Regular Rate, Normal S1, Normal S2 Lungs Clear to Auscultation, Normal Air Movement Abdomen Normal Bowel Sounds, Soft, No Tenderness Neurological Normal Speech, Strength at 5/5 X4 Ext Extremities left-sided calf tenderness Current Medications: Current Medications Sig/Reji Start time Last Medication Dose Route Stop Time Status Admin Acetaminophen 650 MG Q6P PRN 11/20 1200 AC 11/20 PO 1448 Acetaminophen 1,000 MG Q6P PRN 11/20 1200 AC IV Aspirin 81 MG DAILY 11/21 1000 AC 11/21 PO 1000 Atorvastatin Calcium 80 MG DAILY 11/20 1023 AC 11/21 PO 1000 Cholecalciferol 2,000 IU DAILY 11/20 1045 AC 11/21 PO 1000 Citalopram 20 MG DAILY 11/20 1033 AC 11/21 Hydrobromide PO 0825 Clopidogrel Bisulfate 75 MG DAILY 11/20 1045 AC 11/21 PO 1000 Furosemide 80 MG DAILY 11/22 1000 AC PO Furosemide 80 MG 7:30 AM, & 4:30 PM 11/20 1045 DC 11/21 IV 0636 Heparin Sodium 5,000 UNIT Q8 11/21 1400 AC (Porcine) SC Heparin Sodium 10,000 UNIT .STK-MED ONE 11/20 2215 DC (Porcine) IV 11/20 221 Heparin Sodium 5,769 UNIT ONCE ONE 11/205 DC 11/20 (Porcine) IV 11/20 Heparin Sodium 25,000 UNIT Q24H 11/20 1030 DC 11/20 (Porcine) IV 1114 Sodium Chloride 500 ML Isosorbide 90 MG DAILY 11/20 1033 AC 11/21 Mononitrate PO 0825 Losartan Potassium 25 MG DAILY 11/20 1108 AC 11/21 PO 0826 Metoprolol Succinate 12.5 MG DAILY 11/20 1045 AC 11/21 PO 0826 Morphine Sulfate 2 MG Q4P PRN 11/20 1200 AC 11/20 IV 2224 Results Last 48 Hrs of Labs/Mics: Laboratory Tests 11/21/16 0400: Anion Gap 12, Estimated GFR 49 L, BUN/Creatinine Ratio 23.6, Magnesium 3.6 H, APTT > 120 *H, CBC w Diff NO MAN DIFF REQ, RBC 4.32 L, MCV 95.5 H, MCH 31.9 H , RDW 14.7 H, MPV 6.9 L, Gran % 61.6, Lymphocytes % 25.7, Monocytes % 8.9, Eosinophils % 3.5, Basophils % 0.3, Absolute Granulocytes 3.9, Absolute Lymphocytes 1.6, Absolute Monocytes 0.6, Absolute Eosinophils 0.2, Absolute Basophils 0, PUBS MCHC 33.4 11/21/16 0320: Troponin I 0.15 *H 11/20/16 2015: Troponin I 0.17 *H, APTT 44 H 11/20/16 1700: Troponin I Cancelled 11/20/16 1430: Troponin I 0.15 *H 11/20/16 0827: Anion Gap 12, Estimated GFR 58 L, BUN/Creatinine Ratio 22.5, Glucose 115 H, Calcium 9.5, Magnesium 2.3, Total Bilirubin 1.3, AST 33, ALT 46, Alkaline Phosphatase 90, Troponin I 0.13 *H, Drh-G-Lqccwkwapca Pept 1580 H, Total Protein 8.0, Albumin 4.5, Globulin 3.5, Albumin/Globulin Ratio 1.3, TSH 4.460 H , Free T4 1.22, PT 12.4, INR 1.18 H, APTT 30, CBC w Diff NO MAN DIFF REQ, RBC 4.14 L, MCV 96.1 H, MCH 31.9 H, RDW 14.7 H, MPV 6.4 L, Gran % 79.7 H, Lymphocytes % 11.6 L, Monocytes % 7.3, Eosinophils % 1.2, Basophils % 0.2, Absolute Granulocytes 5.3, Absolute Lymphocytes 0.8 L, Absolute Monocytes 0.5, Absolute Eosinophils 0.1, Absolute Basophils 0, PUBS MCHC 33.3 Assessment/Plan Assessment/Plan Assessment: 1. Acute on chronic HFrEF 2. Multivessel coronary artery disease with chronic total occlusion of the RCA 3. Minimal troponin elevation 4. History of hypertension 5. History of hyperlipidemia 6. Nonsustained ventricular arrhythmias Recommendation: -In spite of the patient's initial presentation, he has done remarkably well with resolution of symptoms, no recurrence and only minimal increase in troponin. There have been no other significant issues. -Ambulate the patient today. -Discontinue IV heparin -Continue regular medical regimen -If the patient remains stable with ambulation, after the heparin is discontinued, he can be discharged home later today for close follow-up with Dr. Contreras on Thursday. -The patient is to be scheduled for intervention for his chronically occluded right coronary artery at [facility] in [facility] as per Dr. Contreras. He will discuss this further with Dr. Contreras on Thursday. Continue telemetry? No
--- NOTE | 2016-11-21 17:04 | ECHOCARDIOGRAM REPORT ---
SUSIE HELTON Age: 80 : 1935 Gender: M Exam Date: 11/20/2016 16:36 Exam Location: [address] Ht (in): 68 Wt (lb): 214 BSA: 2.19 BP: 148 / 60 Ordering Physician: ROXANA BARAJAS MD Referring Physician: Moustapha Contreras MD Technologist: Yuki Bryant MALOU Room Number: 172 Indications: CHEST PAIN Rhythm: Sinus Technical Quality: Good FINDINGS Left Ventricle Normal size left ventricle. Moderate concentric left ventricular hypertrophy. Mildly decreased left ventricular systolic function. Normal left ventricular ejection fraction visually estimated at 45- 50 %. Abnormal septal motion secondary to LBBB Right Ventricle Normal right ventricular size and function. Right Atrium Normal right atrial size. Left Atrium Mild left atrial dilatation. Mitral Valve Mitral valve thickened. Mild mitral regurgitation. Aortic Valve Diffuse thickening (sclerosis) of the aortic valve cusps without reduced excursion. No aortic stenosis. Mild aortic regurgitation. Tricuspid Valve Tricuspid valve not well visualized, grossly normal. Trace tricuspid regurgitation. Right ventricular systolic pressure estimated to be elevated at 46 mmHg. Pulmonic Valve Pulmonic valve not well visualized, grossly normal. Trace pulmonic regurgitation. Pericardium No pericardial effusion. Great Vessels Normal size aortic root. CONCLUSIONS Normal size left ventricle. Moderate concentric left ventricular hypertrophy. Mildly decreased left ventricular systolic function. Normal left ventricular ejection fraction visually estimated at 45- 50 %. Abnormal septal motion secondary to LBBB. Mild left atrial dilatation. Mild mitral regurgitation. Mild aortic regurgitation. Trace tricuspid regurgitation. Right ventricular systolic pressure estimated to be elevated at 46 mmHg. Trace pulmonic regurgitation. Moustapha Contreras M.D. (Electronically Signed) Final Date: 21 November 2016 17:03 MEASUREMENTS (Male / Female) Normal Values 2D ECHO LV Diastolic Diameter PLAX 5.3 cm 4.2 - 5.9 / 3.9 - 5.3 cm LV Systolic Diameter PLAX 4.5 cm 2.1 - 4.0 cm LV Fractional Shortening PLAX 15.1 % 25 - 46 % LV Ejection Fraction 2D Teich 31.7 % IVS Diastolic Thickness 1.9 cm LVPW Diastolic Thickness 1.6 cm LV Relative Wall Thickness 0.7 RV Internal Dim ED PLAX 2.9 cm 1.9 - 3.8 cm LVOT Diameter 2.1 cm Aortic Root Diameter 3.6 cm LA Systolic Diameter LX 4.2 cm 3.0 - 4.0 / 2.7 - 3.8 cm LA Volume 53.0 cm 18 - 58 / 22 - 52 cm Ascending Aorta Diameter 3.4 cm DOPPLER AV Peak Velocity 171.0 cm/s AV Peak Gradient 11.7 mmHg AV Mean Velocity 121.0 cm/s AV Mean Gradient 7.0 mmHg AV Velocity Time Integral 31.4 cm LVOT Peak Velocity 121.0 cm/s LVOT Peak Gradient 5.9 mmHg LVOT Mean Velocity 84.9 cm/s LVOT Mean Gradient 3.0 mmHg LVOT Velocity Time Integral 22.7 cm LVOT Stroke Volume 78.6 cm AV Area Cont Eq vti 2.5 cm AV Area Cont Eq pk 2.5 cm MV Peak Velocity 93.4 cm/s MV Peak Gradient 3.5 mmHg MV Mean Velocity 48.2 cm/s MV Mean Gradient 1.0 mmHg Mitral E Point Velocity 89.3 cm/s MV PHT Velocity 97.1 cm/s MV Deceleration [place] 231.0 cm/s MV Pressure Half Time 126.1 ms MV Area PHT 1.7 cm MV Deceleration Time 201.0 ms TR Peak Velocity 308.0 cm/s TR Peak Gradient 37.9 mmHg Right Atrial Pressure 10.0 mmHg Pulmonary Artery Systolic Pressu 47.9 mmHg Right Ventricular Systolic Press 47.9 mmHg PV Peak Velocity 76.4 cm/s PV Peak Gradient 2.3 mmHg PV Mean Velocity 49.9 cm/s PV Mean Gradient 1.0 mmHg PV Velocity Time Integral 12.3 cm LV E' Lateral Velocity 5.4 cm/s Mitral E to LV E' Lateral Ratio 16.5 LV E' Septal Velocity 2.8 cm/s Mitral E to LV E' Septal Ratio 31.8
== END 2016-11-21 12:55 | DRG 292 ==
LOC: ENRESERVTM → ENRESERVDT → ERH 07:58 → ENPENDDIS 10:01 → 1NO 10:01 → ERHI 10:01 → 1NO 12:31
PROVIDERS: Internal Medicine Nephrology; Physician Assistant; ADMIT Internal Medicine
DX: I11.0 Hypertensive heart disease with heart failure (principal); I47.2 Ventricular tachycardia; I25.82 Chronic total occlusion of coronary artery; I50.33 Acute on chronic diastolic (congestive) heart failure; I24.9 Acute ischemic heart disease, unspecified; D64.9 Anemia, unspecified; I25.2 Old myocardial infarction; E78.5 Hyperlipidemia, unspecified; M10.9 Gout, unspecified; I44.7 Left bundle-branch block, unspecified
CPT/HCPCS: 1NP; 82436; 93005; 93010; 93306; 96374; 99291; J0131; J1644; J1940; J3490

== ENCOUNTER 2016-11-22 23:20 | Emergency (ER) | payer OTHER, MEDICARE ==
[~2016-11-22] VITALS: Ht 175.3 cm; Wt 99.8 kg
[~2016-11-22 23:20] MED LIST changes: +ASPIRIN81 M4 PO; +ATORVASTATIN CA80 M1 PO; +CITALOPRAM HBR20 MG PO; +LOSARTAN POTASS50 M1 PO; +NITROGLYCERIN0.4 M1 SL
--- NOTE | 2016-11-22 23:37 | ED DYSPNEA/ASTHMA COMPLAINT ---
History of Present Illness General Chief Complaint: Chest Pain Stated Complaint: BIBA ST EVELAVTION? Source: patient, old records, EMS Exam Limitations: no limitations Vital Signs & Intake/Output Vital Signs & Intake/Output Vital Signs Date Time Temp Pulse Resp B/P Pulse O2 O2 Flow FiO2 Ox Delivery Rate 11/23 0805 87 20 157/82 94 Room Air 11/23 0618 96.5 71 18 111/65 93 Room Air 11/23 0412 97.3 75 20 119/66 96 Room Air 11/23 0215 98.7 81 20 132/67 94 Room Air 11/22 2345 94 Nasal 2.0L Cannula 11/22 2333 98.1 81 20 120/71 95 Nasal 2.0L Cannula ED Intake and Output 11/23 0000 11/22 1200 Intake Total 0 Output Total 900 Balance -900 Intake, Oral 0 Output, Urine 900 Patient 220 lb Weight Allergies Coded Allergies: gabapentin (From NEURONTIN) (Intermediate, INCREASED AGGITATION 11/20/16) prednisone (11/20/16) hydrocodone (GI DISTRESS 11/20/16) oxycodone (GI DISTRESS 11/20/16) Reconcile Medications Aspirin (Aspirin*) 81 MG TAB.CHEW 1 TAB PO DAILY HEART HEALTH (Reported) Atorvastatin Calcium 80 MG TABLET 1 TAB PO DAILY CHOLESTEROL (Reported) Cholecalciferol (Vitamin D3) (Vitamin D3) 2,000 UNIT TABLET 1 TAB PO DAILY SUPPLEMENT (Reported) Citalopram Hydrobromide (Citalopram HBr) 20 MG TABLET 1 TAB PO DAILY MENTAL HEALTH (Reported) Clopidogrel Bisulfate (Clopidogrel) 75 MG TABLET 1 TAB PO DAILY BLOOD THINNER (Reported) Furosemide (Lasix) 80 MG TABLET 1 TAB PO DAILY WATER PILL (Reported) Garlic (Garlic Oil) 1,000 MG CAPSULE 1 CAP PO DAILY SUPPLEMENT (Reported) Isosorbide Mononitrate (Isosorbide Mononitrate ER) 30 MG TAB.ER.24H 3 TAB PO DAILY ANGINA (Reported) Krill/Om-3/Dha/Epa/Phospho/Ast ([place]-3 Krill Oil 1,000 MG) 1,000-230MG CAPSULE 1 CAP PO DAILY SUPPLEMENT (Reported) Losartan Potassium 50 MG TABLET 0.5 TAB PO DAILY HEART (Reported) Metoprolol Succinate 25 MG TAB 0.5 TAB PO DAILY HEART (Reported) Multivitamin (Multiple Vitamins) 1 EACH TABLET 2 TAB PO DAILY SUPPLEMENT ( Reported) Nitroglycerin 0.4 MG TAB.SUBL 1 TAB SL AD PRN CHEST PAIN (Reported) 1st sign of attack; may repeat every 5 minutes until relief; if pain persists after 3 tablets in 15 minutes, prompt medical att Sandra AC (Guaifenesin-Codeine Syrup) 200 MG-20 MG/10 ML LIQUID 10 ML PO Q6P PRN COUGH Zinc Gluconate (ZINC) 50 MG TABLET 1 TAB PO DAILY SUPPLEMENT (Reported) Triage Nurses Notes Reviewed? yes HPI: Patient presents for evaluation of dyspnea. Patient states that his shortness of breath is severe constant and gets worse when he lies down. He was admitted to [facility] for similar issue and was told that he had a heart attack. He denies chest pain at this point. He likewise denies leg swelling. (THAI CONTEH,JAZZY Zamudio) Past History Travel History Traveled to [place] past 21 day No Medical History Any Pertinent Medical History? 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 No (THAI CONTEH,JAZZY Zamudio) Review of Systems Review of Systems Constitutional: Reports: no symptoms. EENTM: Reports: no symptoms. Respiratory: Reports: see HPI. Cardiovascular: Reports: no symptoms. GI: Reports: no symptoms. Genitourinary: Reports: no symptoms. Musculoskeletal: Reports: no symptoms. Skin: Reports: no symptoms. Neurological/Psychological: Reports: no symptoms. Hematologic/Endocrine: Reports: no symptoms. Immunologic/Allergic: Reports: no symptoms. All Other Systems: Reviewed and Negative (THAI CONTEH,JAZZY Zamudio) Physical Exam Physical Exam Respiratory: SEE BELOW Comments: Gen.: Well-nourished, well-developed, mild respiratory distress. Speaks in full sentences. Head: Normocephalic, atraumatic. Eyes: Normal inspection bilaterally Ears: Normal inspection bilaterally Nose: Normal inspection Throat/mouth : Moist mucosa Neck: Supple, full range of motion, no goiter Heart: Regular rate and rhythm, no murmurs rubs or gallops Lungs: Clear to auscultation bilaterally with normal air entry Chest: Nontender Back: Normal range of motion Abdomen: Soft, nontender, nondistended, normal bowel sounds Extremities: Normal range of motion grossly, equal radial pulses, no cyanosis clubbing or edema Neurologic: Cranial nerves grossly intact, speech is clear Skin: warm and dry Psychiatric: Calm, cooperative, no apparent delusions or hallucinations Core Measures ACS in differential dx? No Severe Sepsis Present: No Septic Shock Present: No (THAI CONTEH,JAZZY Zamudio) Progress Differential Diagnosis: AMI, bronchitis, CHF, COPD, pneumonia, pneumothorax, unstable angina Plan of Care: Orders Procedure Date/time Status Heart Healthy Diet 11/23 B Active TROPONIN LEVEL 11/23 0557 Complete OXYGEN SETUP (GEN) 11/22 2334 Active Telemetry/Wafer Production Worker 11/22 2333 Active TROPONIN LEVEL 11/22 2333 Complete MAGNESIUM 11/22 2333 Complete CBC WITHOUT DIFFERENTIAL 11/22 2333 Complete B-TYPE NATRIURETIC PEP (BNP) 11/22 2333 Complete BASIC METABOLIC PANEL 11/22 2333 Complete EKG 11/22 2320 Active Laboratory Tests 11/23/16 0615: Troponin I 0.09 11/22/162336: Anion Gap 12, Estimated GFR 53 L, BUN/Creatinine Ratio 24.6, Glucose 111 H, Calcium 9.2, Magnesium 2.3, Troponin I 0.09, Qbq-O-Tuxkjioitbw Pept 1140 H, CBC w Diff NO MAN DIFF REQ, RBC 3.83 L, MCV 95.4 H, MCH 32.0 H, RDW 14.5, MPV 7.0 L, Gran % 61.8, Lymphocytes % 25.5, Monocytes % 9.6 H, Eosinophils % 2.6, Basophils % 0.5, Absolute Granulocytes 2.5, Absolute Lymphocytes 1.0 L, Absolute Monocytes 0.4, Absolute Eosinophils 0.1, Absolute Basophils 0, PUBS MCHC 33.6 Diagnostic Imaging: Discussed w/RAD: Radiology Read. CXR Impression: PATIENT: TL HELTON PRESENT AGE: 80 PATIENT ACCOUNT NO: [id number] : 36 LOCATION: [facility] ORDERING PHYSICIAN: JAZZY ANDRE MD SERVICE DATE: 11/22/164531 EXAM TYPE: RAD - XRY-PORTABLE CHEST XRAY XR PORTABLE CHEST CLINICAL INFORMATION: CTA chest/effusion/infiltrate COMPARISON: chest x-ray November 20, 2016. TECHNIQUE: Portable AP view of the chest was obtained. FINDINGS: Increasing central vascular congestion and now suspected mild interstitial pulmonary edema. Bibasilar opacities have slightly worsened. There is no pneumothorax. Cardiac silhouette is enlarged and unchanged. There are no acute osseous findings. Degenerative changes involving the glenohumeral joints bilaterally. IMPRESSION: Imaging findings suggest worsening mild congestive heart failure with interstitial pulmonary edema. There are more prominent bibasilar airspace opacities. Low lung volumes. Stable enlargement of the cardiac silhouette. DICTATED BY: JAZZY ALBRIGHT MD DATE/TIME DICTATED:11/23/1634 GLOVE PRINTER:QING DATE/TIME TRANSCRIBED:34 CONFIDENTIAL, DO NOT COPY WITHOUT APPROPRIATE AUTHORIZATION. < Electronically signed in Other Vendor System> SIGNED BY: JAZZY ALBRIGHT MD 11/23/16 0041 Initial ED EKG: NSR, LBBB Prior EKG: unchanged Comments: 11/23/2016 2:03:47 AM I have updated Tl on his test results. I notified him of the plan for diuresis and reevaluation. 11/23/2016 7:29:11 AM Tl has diuresed well overnight. Repeat chest x-ray and troponin are pending. Patient signed out to Dr. Pulliam. (THAI CONTEH,JAZZY Zamudio) CXR Impression: PATIENT: TL HELTON PRESENT AGE: 80 PATIENT ACCOUNT NO: [id number] : 36 LOCATION: [facility] ORDERING PHYSICIAN: JAZZY ANDRE MD SERVICE DATE: 11/23/1605 EXAM TYPE: RAD - XRY-PORTABLE CHEST XRAY EXAMINATION: XR PORTABLE CHEST CLINICAL INFORMATION: Shortness of breath. Worsening CHF COMPARISON: Chest x-ray 11/23/2016 at 12:17 AM TECHNIQUE: Portable AP view of the chest was obtained. FINDINGS: Lungs are hypoexpanded as previously. There is cardiomegaly and a tortuous calcified aorta unchanged. There is persistent interstitial edema which is slightly improved compared to the previous examination. There is persistent and slightly increased bibasilar subsegmental atelectasis. . Some blunting of the costophrenic sulcus on the left raises the possibility of a small left pleural effusion. No pneumothorax. IMPRESSION: There is cardiomegaly and interstitial edema, slightly improved from the most recent prior study of 11/23/2016. Hypoexpanded lungs with slightly increased bibasilar atelectasis. Possible small left pleural effusion DICTATED BY: BETTE REYNA MD DATE/TIME DICTATED:11/23/16712 GLOVE PRINTER: QING DATE/TIME TRANSCRIBED:11/23/16712 CONFIDENTIAL, DO NOT COPY WITHOUT APPROPRIATE AUTHORIZATION. <Electronically signed in Other Vendor System> SIGNED BY: BETTE REYNA MD 11/23/16 0721 Comments: PT DIURESED OVER NIGHT. HE IS FEELING BETTER. AMBUALTORY SAT IS 97%. PT FEELS COMFORTABLE TO GO HOME. (COLLINS PULLIAM MD) Departure Departure Condition: Stable Departure Forms: Customer Survey General Discharge Information (THAI CONTEH,JZAZY Zamudio) Departure Disposition: HOME OR SELF CARE Clinical Impression Primary Impression: CHF (congestive heart failure) Referrals: DOMINIC GREENFIELD MD (PCP/Family) AUSTYN MILLER MD Additional Instructions: CONTINUE YOUR MEDS FOLLOW UP AT [facility] RETURN IF SYMPTOMS WORSEN OR NEEDED (COLLINS PULLIAM MD) Critical Care Note Critical Care Note Critical Care Time: mins: (COLLINS PULLIAM MD)
[2016-11-22 23:57] LABS: ABSOLUTE BASOPHIL COUNT 0 /CUMM (0.0-0.2); ABSOLUTE EOSINOPHIL COUNT 0.1 /CUMM (0.0-0.7); ABSOLUTE GRANULOCYTE CT 2.5 /CUMM (1.4-6.5); ABSOLUTE MONOCYTE COUNT 0.4 /CUMM (0.10-0.60); BASOPHIL % 0.5 % (0.0-2.0); EOSINOPHIL % 2.6 % (0-5); GRANULOCYTE % 61.8 % (42.2-75.2); HEMATOCRIT 36.5 % (42-52); MEAN CORPUSCULAR HGB CONC 33.6 G/DL (33.0-37.0); MEAN CORPUSCULAR VOLUME 95.4 FL (80.0-94.0); PLATELET COUNT 172 /CUMM (130-400); RBC DISTRIBUTION WIDTH 14.5 % (11.5-14.5); RED BLOOD CELL CT 3.83 /CUMM (4.70-6.10)
--- NOTE | 2016-11-23 00:41 | RADIOLOGY REPORT ---
XR PORTABLE CHEST CLINICAL INFORMATION: CTA chest/effusion/infiltrate COMPARISON: chest x-ray November 20, 2016. TECHNIQUE: Portable AP view of the chest was obtained. FINDINGS: Increasing central vascular congestion and now suspected mild interstitial pulmonary edema. Bibasilar opacities have slightly worsened. There is no pneumothorax. Cardiac silhouette is enlarged and unchanged. There are no acute osseous findings. Degenerative changes involving the glenohumeral joints bilaterally. IMPRESSION: Imaging findings suggest worsening mild congestive heart failure with interstitial pulmonary edema. There are more prominent bibasilar airspace opacities. Low lung volumes. Stable enlargement of the cardiac silhouette.
--- NOTE | 2016-11-23 07:21 | RADIOLOGY REPORT ---
EXAMINATION: XR PORTABLE CHEST CLINICAL INFORMATION: Shortness of breath. Worsening CHF COMPARISON: Chest x-ray 11/23/2016 at 12:17 AM TECHNIQUE: Portable AP view of the chest was obtained. FINDINGS: Lungs are hypoexpanded as previously. There is cardiomegaly and a tortuous calcified aorta unchanged. There is persistent interstitial edema which is slightly improved compared to the previous examination. There is persistent and slightly increased bibasilar subsegmental atelectasis. . Some blunting of the costophrenic sulcus on the left raises the possibility of a small left pleural effusion. No pneumothorax. IMPRESSION: There is cardiomegaly and interstitial edema, slightly improved from the most recent prior study of 11/23/2016. Hypoexpanded lungs with slightly increased bibasilar atelectasis. Possible small left pleural effusion
[2016-11-23 08:05] VITALS: BP 157/82
== END 2016-11-23 08:44 ==
LOC: ERH 23:20
PROVIDERS: Emergency Medicine
DX: I50.9 Heart failure, unspecified (principal)
CPT/HCPCS: 93005; 93010; J1940

== ENCOUNTER 2017-01-06 12:51 | Emergency (ER) | payer OTHER, MEDICARE ==
[~2017-01-06] VITALS: Ht 172.7 cm; Wt 97.1 kg
[2017-01-06 14:27] LABS: ABSOLUTE BASOPHIL COUNT 0 /CUMM (0.0-0.2); ABSOLUTE EOSINOPHIL COUNT 0.1 /CUMM (0.0-0.7); ABSOLUTE GRANULOCYTE CT 2.1 /CUMM (1.4-6.5); ABSOLUTE LYMPH COUNT 0.9 /CUMM (1.2-3.4); ABSOLUTE MONOCYTE COUNT 0.4 /CUMM (0.10-0.60); BASOPHIL % 0.3 % (0.0-2.0); EOSINOPHIL % 2.7 % (0-5); GRANULOCYTE % 59.9 % (42.2-75.2); HEMATOCRIT 35.8 % (42-52); MEAN CORPUSCULAR HGB 31.8 PG (27.0-31.0); MEAN CORPUSCULAR HGB CONC 33.9 G/DL (33.0-37.0); MEAN CORPUSCULAR VOLUME 93.7 FL (80.0-94.0); PLATELET COUNT 207 /CUMM (130-400); RBC DISTRIBUTION WIDTH 14.4 % (11.5-14.5); RED BLOOD CELL CT 3.82 /CUMM (4.70-6.10); WHITE BLOOD CELL COUNT 3.6 /CUMM (4.8-10.8)
[2017-01-06] MEDS ORDERED: LASIX40 M1 PO (14:53)
[2017-01-06] MEDS ORDERED: ISOSORBIDE MONO60 M1 PO (14:54)
--- NOTE | 2017-01-06 15:34 | RADIOLOGY REPORT ---
EXAMINATION: XR CHEST CLINICAL INFORMATION: Volume overload COMPARISON: Chest x-ray 11/23/2016, 09/26/2016 TECHNIQUE: 2 views of the chest were obtained. FINDINGS: Heart size is enlarged. There is vascular wall calcifications of thoracic aorta. The lungs are clear. There is no significant pulmonary vascular congestion. There is no pleural effusion. Multilevel endplate degenerative spurs and disc height narrowing of dorsal spine IMPRESSION: Cardiomegaly. No significant pulmonary vascular congestion.
--- NOTE | 2017-01-06 16:13 | ED DYSPNEA/ASTHMA COMPLAINT ---
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 Source: patient Exam Limitations: no limitations Vital Signs & Intake/Output Vital Signs & Intake/Output Vital Signs Date Time Temp Pulse Resp B/P Pulse O2 O2 Flow FiO2 Ox Delivery Rate 01/06 1630 98.3 84 15 115/74 100 Room Air 01/06 1416 94 Room Air 01/06 1312 98.6 116 22 122/66 98 Room Air Allergies Coded Allergies: gabapentin (From NEURONTIN) (Intermediate, INCREASED AGGITATION 11/20/16) prednisone (11/20/16) hydrocodone (GI DISTRESS 11/20/16) oxycodone (GI DISTRESS 11/20/16) Reconcile Medications Aspirin (Aspirin*) 81 MG TAB.CHEW 1 TAB PO DAILY HEART HEALTH (Reported) Atorvastatin Calcium 80 MG TABLET 1 TAB PO DAILY CHOLESTEROL (Reported) Cholecalciferol (Vitamin D3) (Vitamin D3) 2,000 UNIT TABLET 1 TAB PO DAILY SUPPLEMENT (Reported) Citalopram Hydrobromide (Citalopram HBr) 20 MG TABLET 1 TAB PO DAILY MENTAL HEALTH (Reported) Clopidogrel Bisulfate (Clopidogrel) 75 MG TABLET 1 TAB PO DAILY BLOOD THINNER (Reported) Furosemide (Lasix) 80 MG TABLET 1 TAB PO QAM WATER PILL (Reported) Furosemide (Lasix) 40 MG TABLET 1 TAB PO QPM WATER PILL (Reported) Garlic (Garlic Oil) 1,000 MG CAPSULE 1 CAP PO DAILY SUPPLEMENT (Reported) Isosorbide Mononitrate (Isosorbide Mononitrate ER) 60 MG TAB.ER.24H 2 TAB PO DAILY HEART (Reported) Losartan Potassium 50 MG TABLET 0.5 TAB PO DAILY HEART (Reported) Metoprolol Succinate 25 MG TAB 0.5 TAB PO DAILY HEART (Reported) Multivitamin (Multiple Vitamins) 1 EACH TABLET 2 TAB PO DAILY SUPPLEMENT ( Reported) Nitroglycerin 0.4 MG TAB.SUBL 1 TAB SL AD PRN CHEST PAIN (Reported) 1st sign of attack; may repeat every 5 minutes until relief; if pain persists after 3 tablets in 15 minutes, prompt medical att Zinc Gluconate (ZINC) 50 MG TABLET 1 TAB PO DAILY SUPPLEMENT (Reported) Triage Note: REQUESTING A "SHOT OF LASIX". C/O SOB, "I'M LIKE THIS ALL THE TIME.". DENIES CHEST PAIN OR WEAKNESS. EKG DONE IN TRIAGE. PMH: CHF. Triage Nurses Notes Reviewed? yes HPI: Mr. Fraser is a 81 yo m w/ PMH of CAD with [address], CHF, hypertension , hyperlipidemia, IL 3, nephrolithiasis, gout, anxiety and claustrophobia presenting to the emergency department for shortness of breath. Patient states he was told by Dr. Miller to come to the emergency department for an injection of Lasix. Patient endorses acute on chronic shortness of breath. He fatigues after ambulating for 15-20 feet. Patient sleeps with one very large pillow at night as he has orthopnea if he lays flat. Patient denies any fever or chills, chest pain, cough, abdominal pain, N/V/D or ill contacts. He believes that he is retaining water. Patient denies any chest pain or angina. He states he's been taking his medications as prescribed. He uses Lasix 80 mg in the a.m., and 40 mg at night. Past History Travel History Traveled to [facility] past 21 day No Medical History Any Pertinent Medical History? 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 Yes Review of Systems Review of Systems Constitutional: Reports: no symptoms. EENTM: Reports: no symptoms. Respiratory: Reports: orthopnea, short of breath. Denies: cough, hemoptysis, sputum production, wheezing. Cardiovascular: Reports: no symptoms. GI: Reports: no symptoms. Genitourinary: Reports: no symptoms. Musculoskeletal: Reports: no symptoms. Skin: Reports: no symptoms. Neurological/Psychological: Reports: no symptoms. Hematologic/Endocrine: Reports: no symptoms. Immunologic/Allergic: Reports: no symptoms. All Other Systems: Reviewed and Negative Physical Exam Physical Exam General Appearance: well developed/nourished, no apparent distress, alert, awake Head: atraumatic, normal appearance Eyes: Bilateral: normal appearance, PERRL, EOMI. Ears, Nose, Throat: normal pharynx, normal ENT inspection, hearing grossly normal Neck: normal inspection, supple, full range of motion Respiratory: chest non-tender, no respiratory distress, crackles, rales Cardiovascular: regular rate/rhythm, normal peripheral pulses Gastrointestinal: normal bowel sounds, soft, non-tender Rectal: deferred Extremities: normal inspection, normal capillary refill Neurologic/Psych: no motor/sensory deficits, awake, alert, oriented x 3, normal gait, normal mood/affect Skin: intact, normal color, warm/dry Core Measures ACS in differential dx? Yes Severe Sepsis Present: No Septic Shock Present: No Progress Differential Diagnosis: AMI, bronchitis, CHF, musculoskeletal pain, pneumonia, pneumothorax, unstable angina Plan of Care: Orders Procedure Date/time Status TROPONIN LEVEL 01/06 1409 Complete COMPREHENSIVE METABOLIC PANEL 01/06 1409 Complete CBC WITHOUT DIFFERENTIAL 01/06 1409 Complete B-TYPE NATRIURETIC PEP (BNP) 01/06 1409 Complete EKG 01/06 1255 Active Laboratory Tests 01/06/17 1413: Anion Gap 12, Estimated GFR > 60, BUN/Creatinine Ratio 19.1, Glucose 105 H, Calcium 9.3, Total Bilirubin 0.7, AST 30, ALT 52, Alkaline Phosphatase 77, Troponin I 0.08, Rxt-Q-Knceojzdoww Pept 1380 H, Total Protein 7.3, Albumin 4.2, Globulin 3.1, Albumin/Globulin Ratio 1.4, CBC w Diff NO MAN DIFF REQ, RBC 3.82 L, MCV 93.7, MCH 31.8 H, RDW 14.4, MPV 6.0 L, Gran % 59.9, Lymphocytes % 24.5, Monocytes % 12.6 H, Eosinophils % 2.7, Basophils % 0.3, Absolute Granulocytes 2.1, Absolute Lymphocytes 0.9 L, Absolute Monocytes 0.4, Absolute Eosinophils 0.1, Absolute Basophils 0, PUBS MCHC 33.9 Patient is an 81-year-old male w/ significant cardiac history presenting to the ED for shortness of breath. 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 Miller for an injection of Lasix. Patient's EKG is abnormal but nonischemic and unchanged from prior. Patient seen in the emergency to about department by Dr. Cuenca who was trying to get in contact with the patient. He would like to get the patient referred to the CHF clinic and gave the patient information for that. He also took the patient's current phone number so he can contact him directly. Patient given Lasix 80 mg IV push here with positive that fact and approximately 1-1.5 L of urinary output. Patient's labs are essentially at their baseline. Mildly positive troponin however compared to priors it is significantly lower and at baseline. BNP is elevated today at 1380. Has been elevated prior, but this is slightly more elevated than the previous presentation. We will discharge home to follow up with his primary care doctor and pipe fitter marine. Patient's shortness of breath is significantly improved after multiple trips to the bathroom for urination. (TERESA CONTEH,YEMI) Diagnostic Imaging: Viewed by Me: Radiology Read. Discussed w/RAD: Radiology Read. CXR Impression: Cardiomegaly. No significant pulmonary vascular congestion. Initial ED EKG: normal axis, LBBB, abnormal Q waves, first-degree block Prior EKG: unchanged Departure Departure Time of Disposition: 1613 Disposition: HOME OR SELF CARE Condition: Stable Clinical Impression Primary Impression: Volume overload Qualifiers: Hypervolemia type: other Qualified Code: E87.79 - Other fluid overload Secondary Impressions: CHF (congestive heart failure) Qualifiers: Congestive heart failure type: unspecified congestive heart failure type Congestive heart failure chronicity: acute on chronic Qualified Code: I50.9 - Heart failure, unspecified Referrals: JEAN PIERRE CONTEH,DOMINIC Sanchez (PCP/Family) Additional Instructions: You were seen today by Dr. Cuenca. He would like to have you come to the CHF clinic as an outpatient. Please make sure you take all of her home medications including your Lasix. If you develop worsening shortness of breath, chest pain or any other concerning symptoms, please return to the emergency department for evaluation. Departure Forms: Customer Survey General Discharge Information Critical Care Note Critical Care Note Critical Care Time: non-applicable
[2017-01-06 16:30] VITALS: BP 115/74
== END 2017-01-06 16:30 ==
LOC: ERH 12:51
PROVIDERS: Emergency Medicine
DX: E87.70 Fluid overload, unspecified (principal); I50.9 Heart failure, unspecified
CPT/HCPCS: 93005; 93010; 96374; J1940

== ENCOUNTER 2017-03-05 15:45 | Inpatient (IN) | payer OTHER, MEDICARE ==
[~2017-03-05] VITALS: Ht 172.7 cm; Wt 89.8 kg
[~2017-03-05 15:45] MED LIST changes: +ISOSORBIDE MONO60 M1 PO; +LASIX40 M1 PO
--- NOTE | 2017-03-05 15:53 | ED GENERAL ADULT ---
History of Present Illness General Chief Complaint: Dyspnea (COPD, CHF, Other) Stated Complaint: BIBA FOR DYSPNEA Source: patient Exam Limitations: no limitations Vital Signs & Intake/Output Vital Signs & Intake/Output Vital Signs Date Time Temp Pulse Resp B/P B/P Pulse O2 O2 Flow FiO2 Mean Ox Delivery Rate 03/05 1959 98.7 85 18 122/66 98 Nasal 3.0L Cannula 03/05 1801 98.6 80 18 122/80 99 Nasal 2.0L Cannula 03/05 1727 Nasal 2.0L Cannula 03/05 1612 74 20 98/64 96 Room Air Allergies Coded Allergies: gabapentin (From NEURONTIN) (Intermediate, INCREASED AGGITATION 11/20/16) prednisone (11/20/16) hydrocodone (GI DISTRESS 11/20/16) oxycodone (GI DISTRESS 11/20/16) Reconcile Medications Alprazolam 0.5 MG TABLET 1 TAB PO DAILY PRN ANXIETY (Reported) Amiodarone HCl 200 MG TABLET 1 TAB PO DAILY HEART (Reported) Aspirin (Aspirin*) 81 MG TAB.CHEW 1 TAB PO DAILY HEART HEALTH (Reported) Atorvastatin Calcium (Lipitor) 40 MG TABLET 1 TAB PO DAILY CHOLESTEROL ( Reported) Cholecalciferol (Vitamin D3) (Vitamin D) 1,000 UNIT TABLET 1 TAB PO DAILY SUPPLEMENT (Reported) Citalopram Hydrobromide (Citalopram HBr) 20 MG TABLET 1 TAB PO DAILY MENTAL HEALTH (Reported) Clopidogrel Bisulfate (Clopidogrel) 75 MG TABLET 1 TAB PO DAILY BLOOD THINNER (Reported) Famotidine 20 MG TABLET 1 TAB PO DAILY GI (Reported) Furosemide (Lasix) 80 MG TABLET 1 TAB PO TID WATER PILL (Reported) Garlic (Garlic Oil) 1,000 MG CAPSULE 1 CAP PO DAILY SUPPLEMENT (Reported) Hydroxyzine HCl 25 MG TABLET 1 TAB PO DAILY ITCHING (Reported) Isosorbide Mononitrate (Isosorbide Mononitrate ER) 60 MG TAB.ER.24H 2 TAB PO DAILY HEART (Reported) Losartan Potassium 50 MG TABLET 0.5 TAB PO DAILY HEART (Reported) Metoprolol Succinate 25 MG TAB 0.25 TAB PO BID HEART/BP (Reported) Multivitamin (Multiple Vitamins) 1 EACH TABLET 2 TAB PO DAILY SUPPLEMENT ( Reported) Nitroglycerin 0.4 MG TAB.SUBL 1 TAB SL AD PRN CHEST PAIN (Reported) 1st sign of attack; may repeat every 5 minutes until relief; if pain persists after 3 tablets in 15 minutes, prompt medical att Potassium Chloride 10 MEQ TAB.ER.PRT 1 TAB PO DAILY SUPPLEMENT (Reported) Zinc Gluconate (ZINC) 50 MG TABLET 1 TAB PO DAILY SUPPLEMENT (Reported) Triage Nurses Notes Reviewed? yes Onset: Abrupt Duration: day(s): Timing: recent history HPI: 03/05/17 4 PM 81-year-old man presents to the emergency department complaining of difficulty breathing. The patient states he was recently discharged from [facility] where he had a pacemaker. He was told that he is to be transferred back to [facility]. The onset of the symptoms been abrupt, the duration has been 3 days, the severity is significant; as his symptoms required him to come to the emergency department for care. He has a past medical history of atrial fibrillation and recent pacemaker. He's also had a past surgical history for disc herniation, right hip replacement and cystoscopy. He denies drinking or smoking. Past History Travel History Traveled to [facility] past 21 day No Medical History Any Pertinent Medical History? see below for history Neurological: NONE EENT: NONE Cardiovascular: angina, CAD (- status post angioplasty X 7), CHF, hypertension, hyperlipidemia, myocardial infarction (X 3), STENT PLACEMENT Respiratory: NONE Gastrointestinal: NONE Hepatic: NONE Renal: nephrolithiasis Musculoskeletal: gout Psychiatric: anxiety, claustrophobia Endocrine: NONE Blood Disorders: NONE Cancer(s): NONE PAYABLE MANAGER/Reproductive: NONE Other Medical Hx: RETROPERITONEAL HEMATOMA History of MRSA: No History of VRE: No History of CDIFF: No Surgical History Surgical History: hernia repair-inguinal (left), hip replacement (right), CARDIAC STENTS Psychosocial History Who do you live with Patient/Self Services at Home None What is your primary language Cameroonian Family History Family History, If Any: MOTHER FH: gastric cancer Relation not specified for: FH: CAD (coronary artery disease) FH: CAD (coronary artery disease) Hx Contributory? No Review of Systems Review of Systems Constitutional: Denies: fever. EENTM: Denies: visual changes. Respiratory: Reports: short of breath. Cardiovascular: Denies: chest pain. GI: Denies: abdominal pain. Genitourinary: Reports: no symptoms. Musculoskeletal: Reports: no symptoms. Skin: Denies: rash. Neurological/Psychological: Denies: headache. Hematologic/Endocrine: Denies: bruising, bleeding. Physical Exam Physical Exam General Appearance: no apparent distress, alert, awake, anxious, mild distress Head: atraumatic, normal appearance Eyes: Bilateral: normal appearance, PERRL, EOMI. Ears, Nose, Throat: normal ENT inspection Neck: normal inspection, supple Respiratory: normal breath sounds, chest non-tender, no respiratory distress Cardiovascular: regular rate/rhythm, systolic murmur Peripheral Pulses: 4+ radial (R), 4+ radial (L) Gastrointestinal: non-tender Back: normal range of motion Extremities: no edema Neurologic/Psych: no motor/sensory deficits, awake, alert, oriented x 3 Skin: intact, normal color, warm/dry Core Measures ACS in differential dx? Yes CVA/TIA Diagnosis: No Severe Sepsis Present: No Septic Shock Present: No Progress Differential Diagnoses I considered the following diagnoses in my evaluation of the patient: [Acute coronary syndrome, pneumonia, pneumothorax, pulmonary embolism, aortic dissection] Plan of Care: Orders Procedure Date/time Status Heart Healthy Diet 03/06 B Active Patient Data 03/05 2012 Active US-EXT BILAT VENOUS DOPPLER 03/05 191 Active ED Holding Orders 03/05 190 Active Admit to inpatient 03/05 190 Active Vital Signs 03/05 190 Active Code Status 03/05 1900 Active Intake & Output 03/05 1727 Active TROPONIN LEVEL 03/05 1625 Complete D-DIMER 03/05 1625 Complete COMPREHENSIVE METABOLIC PANEL 03/05 1625 Complete CBC WITHOUT DIFFERENTIAL 03/05 1625 Complete B-TYPE NATRIURETIC PEP (BNP) 03/05 1625 Complete EKG 03/05 1551 Active Current Medications Sig/Reji Start time Last Medication Dose Stop Time Status Admin Sodium Chloride 250 ML BOLUS ONE 03/05 1915 CAN (Normal Saline 0.9%) 03/05 2014 Laboratory Tests 03/05/17 1718: Anion Gap 12, Estimated GFR 42 L, BUN/Creatinine Ratio 21.9, Glucose 97, Calcium 9.1, Total Bilirubin 0.7, AST 40, ALT 68, Alkaline Phosphatase 75, Troponin I 0.14 *H, [id number] Pept 3630 H, Total Protein 6.8, Albumin 3.7, Globulin 3.1, Albumin/Globulin Ratio 1.2, D-Dimer High Sensitivty 1729 H, CBC w Diff NO MAN DIFF REQ, RBC 3.26 L, MCV 94.7 H, MCH 31.2 H, RDW 17.0 H, MPV 6.4 L, Gran % 65.8, Lymphocytes % 18.9 L, Monocytes % 10.5 H, Eosinophils % 4.4, Basophils % 0.4, Absolute Granulocytes 3.5, Absolute Lymphocytes 1.0 L, Absolute Monocytes 0.6, Absolute Eosinophils 0.2, Absolute Basophils 0, PUBS MCHC 33.0 Initial ED EKG: left bundle-branch block Departure Departure Disposition: STILL A PATIENT Condition: Stable Clinical Impression Primary Impression: Acute non-ST segment elevation myocardial infarction Referrals: DOMINIC GREENFIELD MD (PCP/Family) Departure Forms: Customer Survey General Discharge Information Admission Note Spoke With: AUSTYN MILLER MD Documentation of Exam: Documentation of any treatments & extenuating circumstances including Concerns Regarding Discharge (functional status, medication knowledge or non-compliance, living conditions, etc.) that warrant an admission rather than observation: [ Patient needs admission for serial troponins, inpatient echocardiogram, exclude pulmonary embolism-VQ SCAN in the am, obtain records from [facility].[id number]] The patient was comfortable in the Emergency Department. He was treated with aspirin. He denied any chest pain.. He says that he was due to be started on a dobutamine drip but had declined this. He has a significantly elevated d-dimer. He also has an elevated creatinine. He also has an elevated BNP. Chest x-ray does not show significant pulmonary edema. Lower extremity ultrasound was ordered. The case was discussed in detail with Dr. Miller his plodding operator. He is in agreement with the plan and will admit the patient to the telemetry unit for further care. Critical Care Note Critical Care Note Critical Care Time: 30-74 min
--- NOTE | 2017-03-05 16:00 | NUR ---
PT FELISHA. SAID HE CAME TO CLOSET ER PER ORDER OF HIS PHYSICIAN BUT WANTS TO BE TRANSFERRED TO [facility]. WANTS HIS PROCESS DEVELOPMENT ASSOCIATE CALLED. PT ANXIOUS. PT REASSURED AND EXPLAINED NEED TO ADMIT TO OUR ED AND ASSESS HIS CONDITION. EXPLAINED THAT PROVIDER WILL BE IN TO SEE HIM SHORTLY
--- NOTE | 2017-03-05 16:10 | NUR ---
IV PLACED. ON MONITOR IN AFIB. COMPLAINING OF SOB DESPITE ADEQUATE O2 SATS. PT SEEMS ANXIOUS. REASSURED AND PLACED ON 2LITERS.
--- NOTE | 2017-03-05 16:14 | NUR ---
FELISHA FOR SOB ON EXERTION. PT DISCHARGED FROM [facility] ON February FOR AFIB AND CAD. S/P PPM INSERTION. STATES HE WAS SO SOB HE COULD NOT WALK. DENIES PAIN. UPON ARRIVAL PT AWAKE, ALERT, ORIENTED. SATS 96% ON ROOM AIR. SKIN COOL AND DRY. PT ANXIOUS.
--- NOTE | 2017-03-05 16:16 | NUR ---
DR ORELLANA IN TO SEE PT
[2017-03-05] MEDS ORDERED: AMIODARONE HCL200 M1 PO (16:38)
[2017-03-05] MEDS ORDERED: LIPITOR40 M1 PO (16:40)
[2017-03-05] MEDS ORDERED: POTASSIUM CHLO10 ME5 PO (16:43)
[2017-03-05] MEDS ORDERED: VITAMIN D1000 UNIT PO (16:44)
[2017-03-05] MEDS ORDERED: ALPRAZOLAM0.5 M4 PO (16:45)
--- NOTE | 2017-03-05 16:47 | NUR ---
SPOKE WITH ZAHRA CURRY TO GIVE UPDATE. [phone]
[2017-03-05] MEDS ORDERED: FAMOTIDINE20 M1 PO (16:50)
[2017-03-05] MEDS ORDERED: HYDROXYZINE HCL25 M2 PO (16:52)
--- NOTE | 2017-03-05 17:10 | RADIOLOGY REPORT ---
EXAMINATION: XR PORTABLE CHEST CLINICAL INFORMATION: Shortness of breath COMPARISON: 01/06/2017 TECHNIQUE: Portable frontal view of the chest was obtained. FINDINGS: In the interval since the prior study there has been placement of a left-sided pacemaker/AICD with 3 leads, projecting over the right atrium and left ventricle, with the combined ICD-pacemaker lead in the right ventricle. Cardiomegaly appears stable. Calcification at the aortic arch appears stable. The lungs appear clear. No evidence of pneumothorax, pleural effusion, consolidation, pulmonary edema. No acute osseous abnormality. A high riding humeral head on the left is noted. IMPRESSION: Interval placement of a left-sided pacemaker/AICD. No acute abnormality.
[2017-03-05 17:25] LABS: ABSOLUTE BASOPHIL COUNT 0 /CUMM (0.0-0.2); ABSOLUTE EOSINOPHIL COUNT 0.2 /CUMM (0.0-0.7); ABSOLUTE GRANULOCYTE CT 3.5 /CUMM (1.4-6.5); ABSOLUTE MONOCYTE COUNT 0.6 /CUMM (0.10-0.60); BASOPHIL % 0.4 % (0.0-2.0); EOSINOPHIL % 4.4 % (0-5); GRANULOCYTE % 65.8 % (42.2-75.2); HEMATOCRIT 30.9 % (42-52); MEAN CORPUSCULAR HGB 31.2 PG (27.0-31.0); MEAN CORPUSCULAR VOLUME 94.7 FL (80.0-94.0); MEAN PLATELET VOLUME 6.4 FL (7.4-10.4); PLATELET COUNT 214 /CUMM (130-400); RED BLOOD CELL CT 3.26 /CUMM (4.70-6.10); WHITE BLOOD CELL COUNT 5.3 /CUMM (4.8-10.8)
--- NOTE | 2017-03-05 17:32 | NUR ---
PT INSISTING ON STANDING UP TO VOID.
--- NOTE | 2017-03-05 17:50 | NUR ---
PT ASSISTED TO COMMODE BUT DID NOT HAVE A BM
--- NOTE | 2017-03-05 18:21 | NUR ---
FAMILY AT BEDSIDE.
--- NOTE | 2017-03-05 18:22 | NUR ---
PT SITTING ON EDGE OF BED. STILL COMPLAINING OF DIFFICULTY BREATHING BUT SATS 99% ON 2L NC.
--- NOTE | 2017-03-05 18:37 | NUR ---
DR ORELLANA IN TO SPEAK WITH PT AND FAMILY AND DISCUSS PLAN FOR CTA TO RULE OUT PE.
--- NOTE | 2017-03-05 18:38 | NUR ---
CRITICAL TEST RESULTS [id number] SUSIE HELTON 81 Candice TESTS AND RESULTS: TROPONIN 0.14 Results received and read back by: JOSE BLANC Results received date and time: 03/05/17 1838 The following provider was notified of the results, and read the results back: DR ORELLANA Notified date and time: 03/05/17 at 1830
--- NOTE | 2017-03-05 19:37 | NUR ---
PER DR ORELLANA. CTA WILL NOT BE DONE TONIGHT. PT MAY EAT
--- NOTE | 2017-03-05 20:14 | History & Physical ---
ARIANA CONTEH,LILI 03/05/17 2013: General Information and HPI MD Statement: I have seen and personally examined SUSIE HELTON and documented this H&P. The patient is a 81 year old M who presented with a patient stated chief complaint of [shortness of breath]. Source of Information: patient, family Exam Limitations: no limitations History of Present Illness: Patient is a 81 year old male who has come to the ED complaining of worsening shortness of breath. His PMH is significant for multivessel CAD s/p catheterizations (with chronic total occlusion of RCA and collaterals from LAD and LCX), Afib, CHF, HTN, HLD, recently discharged (2 days ago) from [facility] after about a month of hospitalization, during which he received treatment with IV lasix and dobutamine and underwent BABITA cardioversion and pacemaker placement. Of note patient was admitted to [place] with SOB and chest pain in Oct 2016, he was discharged to go to [facility] for a catheterization however they chose to go to [facility] instead. Records are currently not available and it is not clear why catheterization was not performed. He was kept on IV dobutamine during hospital course and was advised to be continued on it however the patient refused. The patient reports starting to have difficulty breathing almost a day after discharge. SOB worsens on exertion and when talking. Denies chest pain or palpitation, denies dizziness, lower extremity edema, however reports feeling nausea and having poor appetite. Reports discomfort in the lower abdomen which has been there during the recent admission as well, and reportedly work up has been negative so far. Patient's daughter contacted Dr. Contreras due to his SOB who advised them to come to the hospital for further evaluation. His current eviscerator is at [facility], Dr. Hunter. Allergies/Medications Allergies: Coded Allergies: gabapentin (From NEURONTIN) (Intermediate, INCREASED AGGITATION 11/20/16) prednisone (11/20/16) hydrocodone (GI DISTRESS 11/20/16) oxycodone (GI DISTRESS 11/20/16) Past History Travel History Traveled to [place] past 21 day No Medical History Neurological: NONE EENT: NONE Cardiovascular: angina, CAD (- status post angioplasty X 7), CHF, hypertension, hyperlipidemia, myocardial infarction (X 3), STENT PLACEMENT PPM Respiratory: NONE Gastrointestinal: NONE Hepatic: NONE Renal: nephrolithiasis Musculoskeletal: gout Psychiatric: anxiety, claustrophobia Endocrine: NONE Blood Disorders: NONE Cancer(s): NONE 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 self Services at Home: None Primary Language: Belarusian Smoking Status: Former Smoker ETOH Use: denies use Illicit Drug Use: denies illicit drug use Functional Ability ADLs Independent: dressing, eating, toileting, bathing. Ambulation: independent IADLs Independent: shopping, housework, finances, food prep, telephone, transportation , medication admin. Review of Systems Review of Systems Constitutional: Denies: chills, fever, weakness. EENTM: Reports: no symptoms. Cardiovascular: Denies: chest pain, peripheral edema, syncope. Respiratory: Reports: short of breath. Denies: cough, sputum production, wheezing. GI: Reports: abdominal pain, nausea. Denies: changes in stool, vomiting. Genitourinary: Reports: no symptoms. Musculoskeletal: Denies: joint swelling. Skin: Reports: no symptoms. Neurological/Psychological: Reports: anxiety (reports claustrophobia). Hematologic/Endocrine: Reports: no symptoms. Exam & Diagnostic Data Last 24 Hrs of Vital Signs/I&O Vital Signs Date Time Temp Pulse Resp B/P B/P Pulse O2 O2 Flow FiO2 Mean Ox Delivery Rate 03/05 2329 90 119/70 03/05 2300 97.8 90 20 118/86 96 Room Air 03/05 2240 72 104/57 03/05 2238 97.4 72 18 104/57 97 Room Air 03/05 1959 98.7 85 18 122/66 98 Nasal 3.0L Cannula 03/05 1801 98.6 80 18 122/80 99 Nasal 2.0L Cannula 03/05 1727 Nasal 2.0L Cannula 03/05 1612 74 20 98/64 96 Room Air Intake & Output 03/06 0800 03/06 0000 03/05 1600 Intake Total Output Total Balance Patient 92.079 kg 92.079 kg Weight Weight Reported by Patient Measurement Method Physical Exam General Appearance Alert, Oriented X3, Cooperative, No Acute Distress Skin No Significant Lesion Skin Temp/Moisture Exam: Warm/Dry Sepsis Skin Exam (color): Pale HEENT Atraumatic, EOMI, Mucous Membr. moist/pink, pupils round equal and reactive to light Neck Supple Cardiovascular Normal S1, Normal S2, No Murmurs Lungs Normal Air Movement, mild bibasilar crackles on both sides Abdomen Soft, No Tenderness Neurological Normal Speech, Normal Tone Extremities No Edema, No Tenderness/Swelling Vascular Normal Pulses, Pulses Symmetrical Last 24 Hrs of Labs/Maco: Laboratory Tests 03/06/17 0001: Troponin I Pending 03/05/17 1718: Anion Gap 12, Estimated GFR 42 L, BUN/Creatinine Ratio 21.9, Glucose 97, Calcium 9.1, Total Bilirubin 0.7, AST 40, ALT 68, Alkaline Phosphatase 75, Troponin I 0.14 *H, Ssa-D-Iktvxejvcif Pept 3630 H, Total Protein 6.8, Albumin 3.7, Globulin 3.1, Albumin/Globulin Ratio 1.2, D-Dimer High Sensitivty 1729 H, CBC w Diff NO MAN DIFF REQ, RBC 3.26 L, MCV 94.7 H, MCH 31.2 H, RDW 17.0 H, MPV 6.4 L, Gran % 65.8, Lymphocytes % 18.9 L, Monocytes % 10.5 H, Eosinophils % 4.4, Basophils % 0.4, Absolute Granulocytes 3.5, Absolute Lymphocytes 1.0 L, Absolute Monocytes 0.6, Absolute Eosinophils 0.2, Absolute Basophils 0, PUBS MCHC 33.0 Diagnostic Data EKG Results Ventricular paced rhythm, rate 82, NC interval 184, QTc 552 CXR Results SERVICE DATE: 03/05/17-1624 EXAM TYPE: RAD - XRY-PORTABLE CHEST XRAY EXAMINATION: XR PORTABLE CHEST CLINICAL INFORMATION: Shortness of breath COMPARISON: 01/06/2017 TECHNIQUE: Portable frontal view of the chest was obtained. FINDINGS: In the interval since the prior study there has been placement of a left-sided pacemaker/AICD with 3 leads, projecting over the right atrium and left ventricle, with the combined ICD-pacemaker lead in the right ventricle. Cardiomegaly appears stable. Calcification at the aortic arch appears stable. The lungs appear clear. No evidence of pneumothorax, pleural effusion, consolidation, pulmonary edema. No acute osseous abnormality. A high riding humeral head on the left is noted. IMPRESSION: Interval placement of a left-sided pacemaker/AICD. No acute abnormality. DICTATED BY: BARI DIMAS MD DATE/TIME DICTATED:03/05/171701 BOAT HOIST OPERATOR HELPER:QING DATE/TIME TRANSCRIBED:03/05/171701 Other Results SERVICE DATE: 03/05/17 EXAM TYPE: US - US-EXT BILAT VENOUS DOPPLER EXAMINATION: US TRIPLEX OF LOWER EXTREMITIES, BILATERAL CLINICAL INFORMATION: Bilateral lower extremity edema COMPARISON: 11/20/2016 TECHNIQUE: Color-flow triplex imaging with spectral analysis and compression Doppler were performed on the lower extremities. FINDINGS: Respiratory variation, normal compression and augmented flow are noted throughout the lower extremities. The visualized common femoral vein, superficial femoral vein, profunda femoral vein, popliteal vein and midcalf peroneal and posterior tibial venous segments show no evidence of deep venous thrombosis. There is no Rodriguez's cyst. IMPRESSION: No evidence of deep venous thrombosis involving the lower extremities. DICTATED BY: BARI DIMAS MD DATE/TIME DICTATED:03/05/172211 BOAT HOIST OPERATOR HELPER:QING DATE/TIME TRANSCRIBED:03/05/172211 Assessment/Plan Assessment: Patient is a 81 year old male who has come to the ED with worsening shortness of breath, with PMH significant for CAD s/p catheterizations, Afib, CHF, HTN, HLD, s/p pacemaker placement at [facility], and was recently discharged from there after about a month of hospitalization. In the ED patient is found to have elevated troponin to 0.14 as well as elevated ProBNP (3630, increased from 1380) and D-dimer of 1729. Also found to have elevated Cr:1.6 (up from 1.1 in December 2016), and low Hb:10.2 (down from 12.1 in December 2016). Patient is admitted to telemetry for close cardiac monitoring. Problem list and plan: 1. Shortness of breath, possibly due to underlying CHF, PE less likely (d-dimer elevated, however Wells criteria: scores 0, low probability for PE) 2. mild troponin elevation with no ST-T changes in the EKG 3. MARY 4. Anemia 5. Nausea and abdominal discomfort 6. History of HTN, HLD Shortness of breath, possibly due to underlying CHF or PE * Rule out ACS: serial troponin and EKG (troponin elevation likely due to demand ischemia) * Started IV heparin due to elevated troponin, guaiac (-) * Cardiology, Dr. Contreras aware, suggested starting dobutamine drip * Will need to obtain records from [facility] in am * Echocardiogram * Venous doppler US to rule out DVT, reported left leg swelling during recent hospital stay, resolved * Not a candidate for CTA due to MARY, consider VQ scan MARY * BUN/Cr>20, possibly pre-renal * IV hydration with NS * repeat BEP in am Anemia * Guaiac negative, denies FH of colon cancer, has refused colonoscopy and denies changes in stool habits, bloody/dark stool * Iron studies, vitamin B12, folate Nausea and abdominal discomfort * No tenderness or rebound tenderness, no vomiting, decreased appetite * LFT within normal limits * Guaiac (-), consider guaiac all stools * Consider anti-emetics for nausea as needed History of CHF, CAD, HTN, HLD * Nitroglycerin SL 0.4 mg PRN for chest pain * Continue furosemide, changed from 80 mg BID PO to 60 mg BID (patient reported that he was recommended by his eviscerator to increase it to 80 mg PO TID recently) * Continue amiodarone 200 mg daily * Continue beta bettye, statin and aspirin Diet * NPO overnight * Will decide about restarting diet in am DVT px * IV heparin Pain * Mild pain pathway Full code As Ranked By This Provider Problem List: 1. CHF (congestive heart failure) 2. Elevated BUN 3. Anemia 4. Elevated brain natriuretic peptide (BNP) level 5. SOB (shortness of breath) 6. Elevated troponin Core Measures/Miscellaneous Acute Coronary Syndrome ACS Diagnosis: No (with mild troponin elevation) Date of most recent Echo 11/20/16 Last Known EF % 45 GRISELDA/ARB For EF <40% Yes ASA W/I 24hr of admit Yes Beta-Bettye W/I 24hrs Yes LDL assessed W/I 24 hrs Yes Currently on Statin Yes Cerebrovascular Accident CVA/TIA Diagnosis: No Congestive Heart Failure CHF Diagnosis: No VTE (View Protocol) VTE Risk Factors: Acute medical illness, Age > 40 [facility] prophylaxis d/t: VTE low risk, No contraindications No VTE Pharm Prophylaxis d/t: VTE low risk, No contraindications VTE Diagnosis: No VTE Type: NONE VTE Confirmed by (Test): NONE Sepsis (View Protocol) Severe Sepsis Present: No Septic Shock Septic Shock Present: No Miscellaneous Documentation Attending Case Discussed With: AUSTYN CONTRERAS MD Primary Care Physician: DOMINIC GREENFIELD MD A Patient sees these Specialists Dr. Hunter, cardiology Level of Patient Care: Telemetry ILENE ZAZUETA 03/05/17 2340: Review of Systems Review of Systems Constitutional: Reports: see HPI. Resident Review Statement Resident Statement: examined this patient, discussed with internet project manager, agreed with internet project manager, discussed with nursing Other Findings: 81-year-old very nice gentleman with multivessel coronary artery disease status post catheterization, atrial fibrillation status post recent cardioversion and pacemaker placement presented with shortness of breath of 2 day duration. Recently, patient was in [facility] for his ongoing symptoms of shortness of breath. He was started on dobutamine drip there and was advised to get a dobutamine pump, which the patient refused. During the same admission, patient had pacemaker placement and BABITA cardioversion. Patient was not started on any anticoagulation during that admission. Patient's dose of Lasix was increased to 80 mg 3 times a day. States compliance , no dietary indiscretions. MARY, toponinemia and high proBNP noted. EKG, a flutter, ventricular paced rhythm. Admit to telemetry. Start dobutamine drip. Start heparin drip, guaiac negative. Rule out ACS with serial troponins and EKG. Please obtain records from [facility], [id number]. Concern for PE, less likely. Value of d-dimer questionable, given advaned age, mutiple illnesses and degree of new onset kidney disease. Check venous Doppler, no evidence of DVT noted. 0 points on Well's criteria for PE. May check VQ scan in the morning. IV Lasix 60 mg twice a day. Cardiology consult. Continue beta bettye, statin and aspirin. Continue amiodarone and other medications. Full code. IV heparin for DVT prophylaxis. Keep nothing by mouth overnight, pending clinical course. Start diet after evaluation tomorrow morning. AUSTYN CONTRERAS MD 03/06/17 0721: General Information and HPI Allergies/Medications Home Med list Alprazolam 0.5 MG TABLET 1 TAB PO DAILY PRN ANXIETY (Reported) Apixaban (Eliquis) 5 MG TABLET 1 TAB PO BID BLOOD THINNER Aspirin (Aspirin*) 81 MG TAB.CHEW 1 TAB PO DAILY HEART HEALTH (Reported) Atorvastatin Calcium (Lipitor) 40 MG TABLET 1 TAB PO DAILY CHOLESTEROL ( Reported) Bumetanide 1 MG TABLET 3 TAB PO BID heart health Cholecalciferol (Vitamin D3) (Vitamin D) 1,000 UNIT TABLET 1 TAB PO DAILY SUPPLEMENT (Reported) Citalopram Hydrobromide (Citalopram HBr) 20 MG TABLET 1 TAB PO DAILY MENTAL HEALTH (Reported) Digoxin 250 MCG TABLET 1 TAB PO 1700 CHF, AFIB Famotidine 20 MG TABLET 1 TAB PO DAILY GI (Reported) Isosorbide Mononitrate (Isosorbide Mononitrate ER) 60 MG TAB.ER.24H 2 TAB PO DAILY HEART (Reported) Metoprolol Succinate 25 MG TAB 0.25 TAB PO BID HEART/BP (Reported) Multivitamin (Multiple Vitamins) 1 EACH TABLET 2 TAB PO DAILY SUPPLEMENT ( Reported) Nitroglycerin 0.4 MG TAB.SUBL 1 TAB SL AD PRN CHEST PAIN (Reported) 1st sign of attack; may repeat every 5 minutes until relief; if pain persists after 3 tablets in 15 minutes, prompt medical att Potassium Chloride 10 MEQ TAB.ER.PRT 1 TAB PO DAILY SUPPLEMENT (Reported) Zinc Gluconate (ZINC) 50 MG TABLET 1 TAB PO DAILY SUPPLEMENT (Reported) Attending MD Review Statement Attending Statement Attending MD Statement: examined this patient, discuss w/resident/PA/DRY CHAIN OPERATOR, agreed w/resident/PA/DRY CHAIN OPERATOR, discussed with family, reviewed EMR data (avail), discussed with nursing, reviewed images, amended to note Attending Assessment/Plan: The patient is an 81-year-old male with history of coronary artery disease, ischemic cardiomyopathy, severely decreased left ventricular ejection fraction, recent onset atrial fibrillation. He is status post recent prolonged admission to [facility] for congestive heart failure. During that time he had a BABITA cardioversion for atrial fibrillation, however he is now back in atrial fibrillation. A biventricular pacemaker defibrillator was placed. He was planned to have revascularization of his chronic total occlusion, however this was only not performed. He notes that he developed severe shortness of breath almost immediately on his arrival home. He has continued to be short of breath, which is significantly exacerbated by any activity. He is noted to have a mild troponin elevation and elevated d-dimer Review of systems: No rash. No tremor. No melena. No diaphoresis. All other systems are reviewed, and are noted to be negative. Gen: The patient is in no acute distress HEENT: Normal nose, ears, and oropharynx. Pupils equal bilaterally. Conjunctiva normal. Neck: Supple with no JVD, no masses, and no thyromegaly Lungs: Rales in the bases with normal respiratory effort Heart: RRR, S1, S2, no 2/6 systolic murmur. No peripheral edema, 1+ pulses in the lower extremities bilaterally Abdomen: Soft, nontender, no masses. No hepatomegaly. No splenomegaly Extremities: No clubbing or cyanosis. Normal muscle strength in the upper and lower extremities Skin: Normal skin turgor with no skin ulcers or lesions noted. Neuro: Cranial nerves intact. Sensation intact Psych: Alert and oriented 3 with appropriate affect EKG tracing is independently reviewed, and reveals sinus rhythm at 90 with IVCD CXR: In the interval since the prior study there has been placement of a left-sided pacemaker/AICD with 3 leads, projecting over the right atrium and left ventricle, with the combined ICD-pacemaker lead in the right ventricle. Cardiomegaly appears stable. Calcification at the aortic arch appears stable. The lungs appear clear. No evidence of pneumothorax, pleural effusion, consolidation, pulmonary edema. No acute osseous abnormality. A high riding humeral head on the left is noted. Assessment: 1. CAD with chronic total occlusion 2. Acute on chronic systolic heart failure 3. Recent biventricular defibrillator placement Plan: * Continue to remain effusion * Lasix 60 mg IV every 12 hours * Continue amiodarone * IV heparin * VQ scan to rule out pulmonary embolism * Echocardiogram * Please obtain records from [facility] regarding his recent admission there
--- NOTE | 2017-03-05 20:29 | NUR ---
PT ATE DINNER. SITTING ON EDGE OF BED IN NO ACUTE DISTRESS. CONTINUES TO COMPLAIN OF DIFFICULTY BREATHING.
--- NOTE | 2017-03-05 20:47 | NUR ---
HOUSE STAFF IN TO SEE PT
--- NOTE | 2017-03-05 21:08 | NUR ---
pt is going to 178-1
--- NOTE | 2017-03-05 22:18 | ULTRASOUND REPORT ---
EXAMINATION: US TRIPLEX OF LOWER EXTREMITIES, BILATERAL CLINICAL INFORMATION: Bilateral lower extremity edema COMPARISON: 11/20/2016 TECHNIQUE: Color-flow triplex imaging with spectral analysis and compression Doppler were performed on the lower extremities. FINDINGS: Respiratory variation, normal compression and augmented flow are noted throughout the lower extremities. The visualized common femoral vein, superficial femoral vein, profunda femoral vein, popliteal vein and midcalf peroneal and posterior tibial venous segments show no evidence of deep venous thrombosis. There is no Rodriguez's cyst. IMPRESSION: No evidence of deep venous thrombosis involving the lower extremities.
--- NOTE | 2017-03-05 22:55 | NUR ---
REPORT CALLED TO SANGEETHA ON TELE UNIT. DOBUTAMINE GTT STARTED AT 5MCG/KG/MIN AND HEPARIN GTT STARTED AT 26 CC/HR PRIOR TO GOING TO FLOOR. STARTING DOSE OF DOBUTAMINE CLARIFIED WITH HOUSE STAFF. HEPARIN BOLUS GIVEN ALSO. SECOND IV LINE STARTED AND GTT RUNNING THROUGH SEPARATE LINES
[2017-03-05 23:00] VITALS: BP 118/86
--- NOTE | 2017-03-06 02:50 | NUR ---
LATE ENTRY PT ADMITTED FROM ER VIA STRECTHER, ORIENTED TO ROOM CALL STAFF THAI. ALERT AND ORIENTED X 3. 2 L NC. LCW PACER. AFIB ON THE MONITOR. DENIES ANY PAIN. NPO. LASIX ORDERED. HEPARIN AND DOBUTAMINE GTTS RUNNING ORDERED.CRITICAL VALUE TROP-0.15. MD LANE AWARE. NEXT TROP ORDERED FOR 0500. PT DENIES CP . WILL CONTINUE TO MONITOR.
[2017-03-06 06:10] LABS: ABSOLUTE BASOPHIL COUNT 0 /CUMM (0.0-0.2); ABSOLUTE EOSINOPHIL COUNT 0.1 /CUMM (0.0-0.7); ABSOLUTE GRANULOCYTE CT 3.9 /CUMM (1.4-6.5); ABSOLUTE LYMPH COUNT 1.3 /CUMM (1.2-3.4); ABSOLUTE MONOCYTE COUNT 0.6 /CUMM (0.10-0.60); BASOPHIL % 0.8 % (0.0-2.0); EOSINOPHIL % 1.5 % (0-5); GRANULOCYTE % 66.5 % (42.2-75.2); HEMATOCRIT 30.5 % (42-52); MEAN CORPUSCULAR HGB 31.2 PG (27.0-31.0); MEAN CORPUSCULAR HGB CONC 33.1 G/DL (33.0-37.0); MEAN CORPUSCULAR VOLUME 94.3 FL (80.0-94.0); MEAN PLATELET VOLUME 6.8 FL (7.4-10.4); PLATELET COUNT 209 /CUMM (130-400); RBC DISTRIBUTION WIDTH 16.9 % (11.5-14.5); RED BLOOD CELL CT 3.24 /CUMM (4.70-6.10); WHITE BLOOD CELL COUNT 5.9 /CUMM (4.8-10.8)
[2017-03-06 06:38] LABS: PTT 116 SEC (25-37)
--- NOTE | 2017-03-06 06:52 | NUR ---
PTT-116. HEPARIN GTT STOPPED X 1 HOUR. NEXT PTT FOR 1400.
--- NOTE | 2017-03-06 07:33 | PN- Housestaff ---
Subjective Follow-up For: Congestive heart failure Noe calvin Shortness of breath Tele-Events Since Last Visit: Noe calvin, heart rate between 60 to 80s Subjective: Patient seen and examined this morning. He is lying in bed in moderate distress. Vitals remained within normal limits. Hemodynamically stable. Reports shortness of breath, no other complaints of chest pain, palpitation, nausea, vomiting, abdominal pain. Review of Systems Constitutional: Reports: see HPI. Objective Last 24 Hrs of Vital Signs/I&O Vital Signs Date Time Temp Pulse Resp B/P B/P Pulse O2 O2 Flow FiO2 Mean Ox Delivery Rate 03/06 1530 98.2 96 16 122/62 92 Nasal 2.0L Cannula 03/06 1446 98.0 91 128/74 Room Air Room Air 03/06 1123 Room Air Room Air 03/06 1102 67 142/80 03/06 1101 67 142/80 03/06 1101 67 142/80 03/06 1000 97.7 67 20 142/80 95 Room Air 03/06 0845 67 142/80 03/05 2329 90 119/70 03/05 2300 97.8 90 20 118/86 96 Room Air 03/05 2240 72 104/57 /08 2238 97.4 72 18 104/57 97 Room Air 03/05 1959 98.7 85 18 122/66 98 Nasal 3.0L Cannula 03/05 1801 98.6 80 18 122/80 99 Nasal 2.0L Cannula Intake & Output 03/06 1600 03/06 0800 / 0000 Intake Total 880 425 Output Total 800 400 Balance 80 25 Intake, IV 400 425 Intake, Oral 480 Output, Urine 800 400 Patient 89.981 kg 89.981 kg Weight Weight Chair scale Measurement Method Physical Exam General Appearance: Alert, Oriented X3, Cooperative, Mild Distress Cardiovascular: Regular Rate, Normal S1, Normal S2 Lungs: b/l basal crackles Abdomen: Normal Bowel Sounds, Soft, No Tenderness Extremities: No Clubbing, No Cyanosis, No Tenderness/Swelling Current Medications: Current Medications Sig/Reji Start time Last Medication Dose Route Stop Time Status Admin Alprazolam 0.5 MG DAILY PRN 03/050 AC 03/05 PO 03/12 2159 2338 Amiodarone HCl 200 MG DAILY 03/06 1000 AC 03/06 PO 1101 Aspirin 81 MG DAILY 03/06 1000 AC 03/06 PO 1101 Aspirin 0 .STK-MED ONE 03/05 193 DC PO Aspirin 325 MG ONCE ONE 03/05 1930 DC 03/05 PO 03/05 193 2000 Atorvastatin Calcium 40 MG 1700 03/06 1700 AC PO Cholecalciferol 1,000 IU DAILY 03/06 1000 AC 03/06 PO 1102 Citalopram 20 MG DAILY 03/06 1000 AC 03/06 Hydrobromide PO 1101 Dobutamine HCl 0 .STK-MED ONE 03/05 2223 DC IV Dobutamine HCl 250 MG Q24H 03/05 2145 AC 03/06 Dextrose/Water 250 ML IV 0845 Famotidine 20 MG DAILY 03/06 1000 AC 03/06 PO 1101 Furosemide 60 MG BID 03/05 2200 AC 03/06 IV 1059 Heparin Sodium 0 .STK-MED ONE 03/05 2222 DC (Porcine) .ROUTE Heparin Sodium See Dose BOLUS ONE 03/05 2130 DC 03/05 (Porcine) Insts (1) IV 03/05 Heparin Sodium 25,000 UNIT Q24H 03/05 2130 AC 03/05 (Porcine) IV 2240 Sodium Chloride 500 ML Hydroxyzine HCl 25 MG ONCE ONE 03/06 1415 DC PO 03/06 1416 Isosorbide 120 MG DAILY 03/06 1000 DC Mononitrate PO Isosorbide 120 MG DAILY 03/06 1000 AC 03/06 Mononitrate PO 1101 Metoprolol Tartrate 6.25 MG BID 03/05 2200 AC 03/06 PO 1102 Morphine Sulfate 4 MG Q4P PRN 03/05 2130 AC IV Multivitamins 2 TAB DAILY 03/06 1000 AC 03/06 Therapeutic PO 1101 Nitroglycerin 0.4 MG Q 5 MINUTES X 3 DO.. 03/05 220 AC SL Patient Medication 1 ED .STK-MED ONE 03/06 1423 DC Teaching ED 03/06 1424 Potassium Chloride 40 MEQ ONCE ONE 03/06 1630 DC PO 03/06 1631 Potassium Chloride 10 MEQ DAILY 03/06 1000 AC 03/06 PO 1101 Prochlorperazine 10 MG Q6 PRN 03/05 2130 AC 03/06 PO 1736 Sodium Chloride 250 ML BOLUS ONE 03/05 1915 CAN IV 03/05 2014 Dose Instructions: (1)Heparin Sodium (Porcine): 80 UNITS/KG ( MAX DOSE 5,000 UNITS) Last 24 Hrs of Lab/Maco Results Last 24 Hrs of Labs/Mics: Laboratory Tests 03/06/17 1410: APTT 74 H 03/06/17 0515: Anion Gap 12, Estimated GFR 39 L, BUN/Creatinine Ratio 20.6, Troponin I 0.17 *H , APTT 116 *H, CBC w Diff NO MAN DIFF REQ, RBC 3.24 L, MCV 94.3 H, MCH 31.2 H , RDW 16.9 H, MPV 6.8 L, Gran % 66.5, Lymphocytes % 21.3, Monocytes % 9.9 H, Eosinophils % 1.5, Basophils % 0.8, Absolute Granulocytes 3.9, Absolute Lymphocytes 1.3, Absolute Monocytes 0.6, Absolute Eosinophils 0.1, Absolute Basophils 0, PUBS MCHC 33.1 03/06/17 0001: Troponin I 0.15 *H Assessment/Plan Assessment: Patient is a 81 year old male who has come to the ED with worsening shortness of breath, with PMH significant for CAD s/p catheterizations, Afib, CHF, HTN, HLD, s/p pacemaker placement at [facility], and was recently discharged from there after about a month of hospitalization. In the ED patient is found to have elevated troponin to 0.14 as well as elevated ProBNP (3630, increased from 1380) and D-dimer of 1729. Also found to have elevated Cr:1.6 (up from 1.1 in December 2016), and low Hb:10.2 (down from 12.1 in December 2016). Patient is admitted to telemetry for close cardiac monitoring. Problem list and plan: 1. Shortness of breath, possibly due to underlying CHF, PE less likely (d-dimer elevated, however Wells criteria: scores 0, low probability for PE) 2. mild troponin elevation with no ST-T changes in the EKG 3. MARY 4. Anemia 5. Nausea and abdominal discomfort 6. History of HTN, HLD Shortness of breath, possibly due to underlying CHF or PE * Rule out ACS: serial troponin and EKG (troponin elevation likely due to demand ischemia) * Started IV heparin due to elevated troponin, guaiac (-) * On dobutamine drip * Records from [facility] requested, pending receipt * Echocardiogram pending * VQ scan-low probability for PE MARY * BUN/Cr>20, possibly pre-renal * IV hydration with NS * repeat BEP in am Anemia * Guaiac negative, denies FH of colon cancer, has refused colonoscopy and denies changes in stool habits, bloody/dark stool * Iron studies, vitamin B12, folate History of CHF, CAD, HTN, HLD * Nitroglycerin SL 0.4 mg PRN for chest pain * Continue furosemide 60 mg BID * Continue amiodarone 200 mg daily * Continue beta ángel, statin and aspirin Diet * NPO overnight * Will decide about restarting diet in am DVT px * IV heparin Pain * Mild pain pathway Problem List: 1. Anemia 2. CHF (congestive heart failure) 3. Dyspnea Pain Ratin Pain Location: none Pain Goal: Remain pain free Pain Plan: mild pain pathway Tomorrow's Labs & Rationales: cbc bep
[2017-03-06 10:00] VITALS: BP 142/80
--- NOTE | 2017-03-06 12:45 | NUCLEAR MEDICINE REPORT ---
EXAMINATION: PULMONARY VENTILATION PERFUSION STUDY CLINICAL INFORMATION: Shortness of breath. Assess for PE. COMPARISON: Chest x-ray 03/05/2017. TECHNIQUE: Serial gamma scintillation camera images were obtained over the posterior chest during the single breath, equilibrium rebreathing and washout of 6.25 mCi Xe 133 gas. The patient then received 4.1 mCi Tc-99m MAA intravenously and a 6-view perfusion study was performed. FINDINGS: Ventilation images: On the single breath and equilibrium images there is asymmetrical distribution of gas, decreased on the right compared to the left. There is minimal retention at the left base. Perfusion images: No segmental perfusion defects are present. There is homogeneous distribution of activity bilaterally. There are no focal anatomic appearing perfusion defects present. IMPRESSION: 1. The study has a low probability for pulmonary embolus. 2. There is asymmetrical ventilation, which appears decreased on the right.
[2017-03-06 14:46] VITALS: BP 128/74
[2017-03-06 15:06] LABS: PTT 74 SEC (25-37)
[2017-03-06 15:30] VITALS: BP 122/62
--- NOTE | 2017-03-06 20:35 | NUR ---
2030 HEPARIN GTT RUNNING AT 26ML/HR WITH A PREVIOUS PTT OF 74. PER HEPARIN PROTOCOL NO ADJUSTMENTS TO BE MADE AT THIS TIME, NEXT PTT DUE 03/07/17 @ 0200.
--- NOTE | 2017-03-06 20:53 | NUR ---
HEPARIN GTT AT 26 ML/HR AT START OF SHIFT. PTT RESULT CAME BACK THERAPEUTIC THIS AFTERNOON. NO CHANGES MADE. NEXT PTT TO BE DONE ON 03/07/17 AT 0200.
--- NOTE | 2017-03-06 21:25 | ECHOCARDIOGRAM REPORT ---
SUSIE HELTON Age: 81 : 1935 Gender: M Exam Date: 03/06/2017 10:00 Exam Location: [address] Ht (in): 68 Wt (lb): 198 BSA: 2.10 BP: 119 / 70 Ordering Physician: ILENE ZAZUETA MD Referring Physician: ILENE ZAZUETA MD Technologist: Quinton Jenkins [facility] Room Number: 178-1 Indications: AFIB/FLUTTER Rhythm: Atrial fibrillation Technical Quality: Good FINDINGS Left Ventricle Mild left ventricular dilatation. Mild concentric left ventricular hypertrophy. Left ventricular ejection fraction is estimated at 30-35%. Global hypokinesis Right Ventricle Reduced right ventricular global systolic function. Right Atrium Mild right atrial dilatation. Left Atrium Mild left atrial dilatation. Mitral Valve Mitral valve thickened. Mild mitral regurgitation. Aortic Valve Diffuse thickening of the aortic valve cusps with reduced excursion. Mild aortic stenosis. Mild aortic regurgitation. Tricuspid Valve Tricuspid valve not well visualized, grossly normal. Mild tricuspid regurgitation. Right ventricular systolic pressure estimated to be elevated at 53 mmHg. Pulmonic Valve Pulmonic valve not well visualized, grossly normal. Trace pulmonic regurgitation. Pericardium No pericardial effusion. Great Vessels Normal size aortic root. CONCLUSIONS Mild left ventricular dilatation. Mild concentric left ventricular hypertrophy. Left ventricular ejection fraction is estimated at 30-35%. Global hypokinesis. Reduced right ventricular global systolic function. Mild right atrial dilatation. Mild left atrial dilatation. Mitral valve thickened. Mild mitral regurgitation. Mild aortic stenosis. Mild aortic regurgitation. Mild tricuspid regurgitation. Right ventricular systolic pressure estimated to be elevated at 53 mmHg. Trace pulmonic regurgitation. Moustapha Contreras M.D. (Electronically Signed) Final Date: 06 March 2017 21:24 MEASUREMENTS (Male / Female) Normal Values 2D ECHO LV Diastolic Diameter PLAX 5.6 cm 4.2 - 5.9 / 3.9 - 5.3 cm LV Systolic Diameter PLAX 4.6 cm 2.1 - 4.0 cm LV Fractional Shortening PLAX 17.9 % 25 - 46 % LV Ejection Fraction 2D Teich 36.7 % IVS Diastolic Thickness 1.4 cm LVPW Diastolic Thickness 1.3 cm LV Relative Wall Thickness 0.5 RV Internal Dim ED PLAX 4.2 cm 1.9 - 3.8 cm LVOT Diameter 2.2 cm Aortic Root Diameter 3.3 cm LA Systolic Diameter LX 4.7 cm 3.0 - 4.0 / 2.7 - 3.8 cm Ascending Aorta Diameter 3.1 cm DOPPLER AV Peak Velocity 263.0 cm/s AV Peak Gradient 27.7 mmHg AV Mean Velocity 176.0 cm/s AV Mean Gradient 15.0 mmHg AV Velocity Time Integral 48.5 cm AI Deceleration [place] 219.0 cm/s AI Peak Velocity 379.5 cm/s AI Pressure Half Time 507.5 ms AI Peak Gradient 57.6 mmHg LVOT Peak Velocity 77.5 cm/s LVOT Peak Gradient 2.4 mmHg LVOT Mean Velocity 57.3 cm/s LVOT Mean Gradient 2.0 mmHg LVOT Velocity Time Integral 17.0 cm LVOT Stroke Volume 64.6 cm AV Area Cont Eq vti 1.3 cm AV Area Cont Eq pk 1.1 cm MV Peak Velocity 111.0 cm/s MV Peak Gradient 4.9 mmHg MV Mean Velocity 55.5 cm/s MV Mean Gradient 2.0 mmHg Mitral E Point Velocity 97.2 cm/s Mitral A Point Velocity 23.7 cm/s Mitral E to A Ratio 4.1 MV PHT Velocity 112.0 cm/s MV Deceleration [place] 375.0 cm/s MV Pressure Half Time 89.6 ms MV Area PHT 2.5 cm MV Deceleration Time 285.0 ms MR Peak Velocity 425.0 cm/s MR Peak Gradient 72.3 mmHg TR Peak Velocity 330.0 cm/s TR Peak Gradient 43.6 mmHg Right Atrial Pressure 10.0 mmHg Pulmonary Artery Systolic Pressu 53.6 mmHg Right Ventricular Systolic Press 53.6 mmHg PV Peak Velocity 110.0 cm/s PV Peak Gradient 4.8 mmHg PV Mean Velocity 73.4 cm/s PV Mean Gradient 3.0 mmHg PV Velocity Time Integral 21.9 cm LV E' Lateral Velocity 7.2 cm/s Mitral E to LV E' Lateral Ratio 13.5 LV E' Septal Velocity 5.9 cm/s Mitral E to LV E' Septal Ratio 16.6
[2017-03-06 21:30] VITALS: BP 126/74
[2017-03-07] VITALS: BP 116/70
[2017-03-07 01:46] LABS: ABSOLUTE BASOPHIL COUNT 0 /CUMM (0.0-0.2); ABSOLUTE EOSINOPHIL COUNT 0 /CUMM (0.0-0.7); ABSOLUTE GRANULOCYTE CT 5.3 /CUMM (1.4-6.5); ABSOLUTE LYMPH COUNT 0.3 /CUMM (1.2-3.4); ABSOLUTE MONOCYTE COUNT 0.4 /CUMM (0.10-0.60); BASOPHIL % 0.7 % (0.0-2.0); EOSINOPHIL % 0.2 % (0-5); GRANULOCYTE % 86.9 % (42.2-75.2); HEMATOCRIT 27.7 % (42-52); MEAN CORPUSCULAR HGB CONC 33.3 G/DL (33.0-37.0); MEAN PLATELET VOLUME 6.6 FL (7.4-10.4); PLATELET COUNT 197 /CUMM (130-400); RBC DISTRIBUTION WIDTH 16.9 % (11.5-14.5); RED BLOOD CELL CT 2.98 /CUMM (4.70-6.10); WHITE BLOOD CELL COUNT 6.1 /CUMM (4.8-10.8)
[2017-03-07 02:36] LABS: PTT 81 SEC (25-37)
--- NOTE | 2017-03-07 08:00 | NUR ---
PT REFUSING AM LABS/EKG/WEIGHT, CRAIG MARTELL MD AWARE.
[2017-03-07 09:00] VITALS: BP 122/62
--- NOTE | 2017-03-07 09:15 | PN- Housestaff ---
Subjective Follow-up For: CHF elevated troponins Subjective: Patient seen and examined. He is seen sitting upright in his chair at bedside appearing mildly uncomfortable. He appears to be in no acute distress. He is upset, and feels nothing is being done. He is asking to be transferred to [facility]. Patient was encouraged that he is receiving appropriate care and that that hospital would not be a higher level of care for his current condition. He otherwise feels incredibly fatigued and short of breath with mild chest discomfort. Otherwise he denies any fever, chills, palpitations. Review of Systems Constitutional: Reports: see HPI. Objective Last 24 Hrs of Vital Signs/I&O Vital Signs Date Time Temp Pulse Resp B/P B/P Pulse O2 O2 Flow FiO2 Mean Ox Delivery Rate 03/07 921 93 122/62 03/07 0921 93 122/62 03/07 0921 93 122/62 03/07 0900 99.7 93 20 122/62 96 Nasal Cannula 03/07 0100 100.1 03/07 0019 102.1 03/07 0000 Nasal 2.0L Cannula 03/07 0000 102.1 88 20 116/70 94 03/06 2301 100.7 03/06 2140 104 126/64 03/06 2130 100.7 104 20 126/74 96 Nasal 2.0L Cannula 03/06 1600 95 Nasal 2.0L Cannula 03/06 1530 98.2 96 16 122/62 92 Nasal 2.0L Cannula 03/06 1446 98.0 91 128/74 Room Air Room Air 03/06 1123 Room Air Room Air Intake & Output 03/07 1600 03/07 0800 03/07 0000 Intake Total 575 360 Output Total 525 375 Balance 50 -15 Intake, IV 375 160 Intake, Oral 200 200 Output, Urine 525 375 Physical Exam General Appearance: Alert, Oriented X3, Mild Distress Other Physical Findings: General- well developed, well nourished elderly man appearing uncomfortable HEENT- NCAT, PERRL, EOMI, anicteric sclera Chest- S1, S2 Lung- Mild bibasilar crackles Abdomen- Soft, obese, nontender, nondistended, bowel sounds intact Neuro- Awake and alert, CN II - XII grossly intact Ext- normal pulses, 1+ bilateral lower extremity edema Current Medications: Current Medications Sig/Reji Start time Last Medication Dose Route Stop Time Status Admin Acetaminophen 500 MG Q6P PRN 03/06 2230 AC 03/06 PO 2301 Alprazolam 0.5 MG DAILY PRN 03/05 2200 AC 03/06 PO 03/12 215 2321 Amiodarone HCl 200 MG DAILY 03/06 1000 AC 03/07 PO 0921 Aspirin 81 MG DAILY 03/06 1000 AC 03/07 PO 0921 Atorvastatin Calcium 40 MG 1700 03/06 1700 AC 03/06 PO 1745 Ceftriaxone Sodium 1,000 MG ONCE ONE 03/07 0030 DC 03/07 IV 03/07 0031 0204 Cholecalciferol 1,000 IU DAILY 03/06 1000 AC 03/07 PO 0922 Citalopram 20 MG DAILY 03/06 1000 AC 03/07 Hydrobromide PO 09 Dobutamine HCl 250 MG Q24H 03/05 2145 AC 03/07 Dextrose/Water 250 ML IV 0548 Famotidine 20 MG DAILY 03/06 1000 AC 03/07 PO 0922 Furosemide 60 MG BID 03/05 2200 AC 03/07 IV 0920 Heparin Sodium 25,000 UNIT Q24H 03/05 2130 AC 03/06 (Porcine) IV 2003 Sodium Chloride 500 ML Hydroxyzine HCl 25 MG ONCE ONE 03/06 1415 DC 03/06 PO 03/06 1416 1745 Isosorbide 120 MG DAILY 03/06 1000 AC 03/07 Mononitrate PO 09 Metoprolol Tartrate 6.25 MG BID 03/05 2200 AC 03/07 PO 0921 Morphine Sulfate 4 MG Q4P PRN 03/05 2130 IV Multivitamins 2 TAB DAILY 03/06 1000 AC 03/07 Therapeutic PO 09 Nitroglycerin 0.4 MG Q 5 MINUTES X 3 DO.. 03/05 2200 SL Patient Medication 1 ED .STK-MED ONE 03/06 1423 DC Teaching ED 03/06 1424 Potassium Chloride 40 MEQ ONCE ONE 03/06 1630 DC 03/06 PO 03/06 1631 1744 Potassium Chloride 10 MEQ DAILY 03/06 1000 AC 03/07 PO 0921 Prochlorperazine 10 MG Q6 PRN 03/05 2130 AC 03/06 PO 1736 Trimethobenzamide HCl 200 MG ONCE ONE 03/06 1900 DC 03/06 IM 06/09 1901 191 Last 24 Hrs of Lab/Maco Results Last 24 Hrs of Labs/Mics: Laboratory Tests 03/07/17 0927: Troponin I 0.37 *H 03/07/17 0805: Urine Color Pending, Urine Clarity Pending, Urine pH Pending, Ur Specific [place] Pending, Urine Protein Pending, Urine Ketones Pending, Urine Nitrite Pending, Urine Bilirubin Pending, Urine Urobilinogen Pending, Ur Leukocyte Esterase Pending, Ur Microscopic SEDIMENT EXAMINED, Urine RBC Pending, Urine Hemoglobin Pending, Urine Glucose Pending 03/07/17 0210: APTT 81 H 03/07/17 0055: CBC w Diff NO MAN DIFF REQ, RBC 2.98 L, MCV 93.0, MCH 31.0, RDW 16.9 H, MPV 6.6 L, Gran % 86.9 H, Lymphocytes % 4.8 L, Monocytes % 7.4, Eosinophils % 0.2 , Basophils % 0.7, Absolute Granulocytes 5.3, Absolute Lymphocytes 0.3 L, Absolute Monocytes 0.4, Absolute Eosinophils 0, Absolute Basophils 0, PUBS MCHC 33.3 03/06/17 2252: Troponin I 0.30 *H 03/06/17 1730: Troponin I 0.19 *H, Triglycerides 82, Cholesterol 99, LDL Cholesterol, Calc 43 L, HDL Cholesterol 40, Cholesterol/HDL Ratio 2 03/06/17 1410: APTT 74 H Microbiology 03/07 805 URINE ROUT: Urine Culture - RECD 03/07 55 BLOOD: Blood Culture - RECD 03/07 55 BLOOD: Blood Culture - RECD Assessment/Plan Assessment: Patient continue to "feel terrible" and feels that nothing is being done. He is in agreement to stay for treatment for now. Records from [facility] are still pending. Patient has extensive crackles for which lasix were increasd. His shortness of breath appears multifactorial, aminodarone is discontinued for fear of pulmonary fibrosis. CT Chest is order and pending. Dobutamine and Heparin drips are continued. Problem List: -CHF exacerbation -Acute kidney injury -Anemia -Hypertension -Hyperlipidemia Plan: -Telemetry -Supplemental oxygen, taper as tolerated -Trend troponin/EKG -Amiodarone discontinued -Heparin Drip -Dobutamin drip -Aspirin/Metoprolol/NTG -Atorvastatin 40mg PO Daily -Lasix 80mg IV BID -Digoxin 0.25mcg PO Daily -Cardiology following -Pulmonology consult placed, follow up recommendations -Follow up record request from [facility] -Heart Healthy Diet -DVT PPx -FULL CODE -Follow up CT chest Problem List: 1. CHF (congestive heart failure) Pain Ratin Pain Location: None Pain Goal: Remain pain free Pain Plan: See assessment Tomorrow's Labs & Rationales: BEP-MARY CBC-anemia
[2017-03-07 15:10] LABS: PTT 89 SEC (25-37)
--- NOTE | 2017-03-07 15:41 | PN- Cardiology ---
See Addendum Subjective Subjective: * Patient complains of shortness of breath with minimal movement. * Atrial fibrillation with ventricular pacing. * creatinine is 1.7 * slight uptrend in troponin to 0.37 * highly elevated D-dimer without definitive evidence of PE Objective Vital Signs and I&Os Vital Signs Date Time Temp Pulse Resp B/P B/P Pulse O2 O2 Flow FiO2 Mean Ox Delivery Rate 03/07 921 93 122/62 03/07 0921 93 122/62 03/07 0921 93 122/62 03/07 09 99.7 93 20 122/62 96 Nasal Cannula 03/07 0800 Nasal 2.0L Cannula 03/07 0100 100.1 03/07 0019 102.1 03/07 0000 Nasal 2.0L Cannula 03/07 0000 102.1 88 20 116/70 94 03/06 2301 100.7 03/06 2140 104 126/64 03/06 2130 100.7 104 20 126/74 96 Nasal 2.0L Cannula 03/06 1600 95 Nasal 2.0L Cannula 03/06 1530 98.2 96 16 122/62 92 Nasal 2.0L Cannula Intake & Output 03/07 1600 03/07 0800 03/07 0000 03/06 1600 03/06 0800 03/06 0000 Intake Total 480 575 360 880 425 Output Total 550 525 375 800 400 Balance -70 50 -15 80 25 Intake, IV 375 160 400 425 Intake, Oral 480 200 200 480 Output, Urine 550 525 375 800 400 Patient 198 lb 198 lb Weight Weight Chair scale Measurement Method Physical Exam: General: WD/ WN male in NAD; alert and oriented x 3 Heart: RRR with 2/6 systolic murmur Lungs: crackles at bases bilaterally Extremities: no edema Assessment/Plan Assessment/Plan * This patient continues to have crackles along with shortness of breath. His crackles are dry sounding and are in excess of that expected for chronic RCA disease and his level of BNP elevation. This patient has been on Amiodarone and consideration should be given to interstitial lung disease related to this drug. We will stop this drug today and a high resolution CT scan is recommended along with pulmonary consult. Obtain pulmonary function tests. * Continue a small dose of metoprolol for now. Continue NTG. * Increase dobutamine drip to 7mcg/kg/min. Increase Lasix to 80mg IV BID. Follow BUN, creatinine and potassium. * There has been thought to try to open this patient's chronically occluded RCA. This would be difficult since it was already tried without success. In addition, opening chronic total occlusions tends to require extensive contrast usage which may not be possible in this patient with renal insufficiency. Finally, bypass surgery for one vessel, especially an RCA that does not cause pain is probably not indicated. These decisions can be made by the physicians at [facility]. Continue telemetry? Yes
[2017-03-07 16:00] VITALS: BP 120/78
[2017-03-08 03:14] LABS: ABSOLUTE BASOPHIL COUNT 0 /CUMM (0.0-0.2); ABSOLUTE EOSINOPHIL COUNT 0.2 /CUMM (0.0-0.7); ABSOLUTE GRANULOCYTE CT 5.1 /CUMM (1.4-6.5); ABSOLUTE LYMPH COUNT 0.5 /CUMM (1.2-3.4); ABSOLUTE MONOCYTE COUNT 0.4 /CUMM (0.10-0.60); BASOPHIL % 0.1 % (0.0-2.0); GRANULOCYTE % 81.9 % (42.2-75.2); MEAN CORPUSCULAR HGB 31.1 PG (27.0-31.0); MEAN CORPUSCULAR VOLUME 94.2 FL (80.0-94.0); MEAN PLATELET VOLUME 6.7 FL (7.4-10.4); PLATELET COUNT 183 /CUMM (130-400); RBC DISTRIBUTION WIDTH 17.4 % (11.5-14.5); RED BLOOD CELL CT 3.08 /CUMM (4.70-6.10); WHITE BLOOD CELL COUNT 6.2 /CUMM (4.8-10.8)
[2017-03-08 03:19] LABS: PTT 75 SEC (25-37)
--- NOTE | 2017-03-08 07:08 | PN- Housestaff ---
Subjective Follow-up For: CHF elevated troponins Tele-Events Since Last Visit: Noe calvin, heart rate between 72-78 Subjective: Patient seen and examined this morning he was sitting upright in his reclining chair in no acute distress. Denies any shortness of breath, chest pain, palpitation, reports feeling anxious. Otherwise hemodynamically stable, left pending. Review of Systems Constitutional: Reports: see HPI. Objective Last 24 Hrs of Vital Signs/I&O Vital Signs Date Time Temp Pulse Resp B/P B/P Pulse O2 O2 Flow FiO2 Mean Ox Delivery Rate 03/08 0158 99.2 03/08 0108 99.2 03/08 0036 77 130/60 03/08 0000 97 Nasal 2.0L Cannula 03/07 2226 100.5 03/07 2224 85 130/68 03/07 1709 91 120/78 03/07 1707 91 120/78 03/07 1600 95 Nasal 2.0L Cannula 03/07 1600 98.9 90 18 120/78 95 Nasal 2.0L Cannula 03/07 0921 93 122/62 03/07 0921 93 122/62 03/07 0921 93 122/62 03/07 0900 99.7 93 20 122/62 96 Nasal Cannula 03/07 0800 Nasal 2.0L Cannula Intake & Output 03/08 0800 03/08 0000 03/07 1600 Intake Total 540 480 Output Total 850 550 Balance -310 -70 Intake, IV 380 Intake, Oral 160 480 Output, Urine 850 550 Patient 92.2 kg Weight Physical Exam General Appearance: Alert, Oriented X3, Cooperative, No Acute Distress Cardiovascular: Regular Rate, Normal S1, Normal S2 Lungs: Clear to Auscultation, Normal Air Movement Abdomen: Normal Bowel Sounds, Soft, No Tenderness Extremities: No Clubbing, No Cyanosis, No Edema Current Medications: Current Medications Sig/Reji Start time Last Medication Dose Route Stop Time Status Admin Acetaminophen 500 MG Q6P PRN 03/06 2230 AC 03/07 PO 2225 Alprazolam 0.5 MG DAILY PRN 03/050 AC 03/06 PO 03/12 2159 2321 Amiodarone HCl 200 MG DAILY 03/06 1000 DC 03/07 PO 09 Aspirin 81 MG DAILY 03/06 1000 AC 03/07 PO 09 Atorvastatin Calcium 40 MG 1700 03/06 1700 AC 06/10 PO 1707 Cholecalciferol 1,000 IU DAILY 03/06 1000 AC 03/07 PO 0922 Citalopram 20 MG DAILY 03/06 1000 AC 03/07 Hydrobromide PO 0921 Digoxin 0.25 MG 1700 03/07 1700 AC 03/07 PO 1709 Dobutamine HCl 250 MG Q6H 03/07 1700 AC 03/08 Dextrose/Water 250 ML IV 0036 Dobutamine HCl 250 MG Q24H 03/05 214 DC 03/07 Dextrose/Water 250 ML IV 0548 Docusate Sodium 100 MG DAILY NEEDED PRN 03/07 2245 AC 03/07 PO 2241 Famotidine 20 MG DAILY 03/06 1000 AC 03/07 PO 0922 Furosemide 80 MG BID 03/07 2200 AC 03/07 IV 2218 Furosemide 60 MG BID 03/05 220 DC 03/07 IV 0920 Heparin Sodium 25,000 UNIT Q24H 03/05 2130 AC 03/07 (Porcine) IV 1708 Sodium Chloride 500 ML Isosorbide 120 MG DAILY 03/06 1000 AC 03/07 Mononitrate PO 0921 Metoprolol Tartrate 6.25 MG BID 03/05 220 AC 03/07 PO 2224 Morphine Sulfate 4 MG Q4P PRN 03/05 213 AC IV Multivitamins 2 TAB DAILY 03/06 1000 AC 03/07 Therapeutic PO 0922 Nitroglycerin 0.4 MG Q 5 MINUTES X 3 DO.. 03/05 2200 AC SL Potassium Chloride 10 MEQ DAILY 03/06 1000 AC 03/07 PO 0921 Prochlorperazine 10 MG Q6 PRN 03/05 213 AC 03/06 PO 1736 Last 24 Hrs of Lab/Maco Results Last 24 Hrs of Labs/Mics: Laboratory Tests 03/08/17 0250: Anion Gap 12, Estimated GFR 49 L, BUN/Creatinine Ratio 19.3, APTT 75 H, CBC w Diff NO MAN DIFF REQ, RBC 3.08 L, MCV 94.2 H, MCH 31.1 H, RDW 17.4 H, MPV 6.7 L, Gran % 81.9 H, Lymphocytes % 7.7 L, Monocytes % 6.3, Eosinophils % 4.0 , Basophils % 0.1, Absolute Granulocytes 5.1, Absolute Lymphocytes 0.5 L, Absolute Monocytes 0.4, Absolute Eosinophils 0.2, Absolute Basophils 0, PUBS MCHC 33.0 03/07/17 1630: Troponin I 0.33 *H 03/07/17 1430: APTT 89 H 03/07/17 0927: Troponin I 0.37 *H 03/07/17 0805: Urine Color YEL, Urine Clarity CLEAR, Urine pH 6.0, Ur Specific [place] 1.015, Urine Protein 30 H, Urine Ketones NEG, Urine Nitrite NEG, Urine Bilirubin NEG, Urine Urobilinogen 0.2, Ur Leukocyte Esterase NEG, Ur Microscopic SEDIMENT EXAMINED, Urine RBC RARE, Urine WBC 1-3 H, Urine Hemoglobin TRACE-INTACT H, Urine Glucose NEG Microbiology 03/07 805 URINE ROUT: Urine Culture - RECD Assessment/Plan Assessment: Patient continue to "feel terrible" and feels that nothing is being done. He is in agreement to stay for treatment for now. Records from [facility] are still pending. Patient has extensive crackles for which lasix were increasd. His shortness of breath appears multifactorial, aminodarone is discontinued for fear of pulmonary fibrosis. CT Chest is order and pending. Dobutamine and Heparin drips are continued. Problem List: -CHF exacerbation -Acute kidney injury -Anemia -Hypertension -Hyperlipidemia Plan: -Telemetry -Supplemental oxygen, taper as tolerated -Trend troponin/EKG -Amiodarone discontinued -Heparin Drip -Dobutamin drip -Aspirin/Metoprolol/NTG -Atorvastatin 40mg PO Daily -Lasix 80mg IV BID -Digoxin 0.25mcg PO Daily -Cardiology following -Pulmonology consult placed, follow up recommendations -Follow up record request from [facility] -Heart Healthy Diet -DVT PPx -FULL CODE -Follow up CT chest Problem List: 1. CHF (congestive heart failure) Pain Ratin Pain Location: None Pain Goal: Remain pain free Pain Plan: Mild pain pathway Tomorrow's Labs & Rationales: bEP CBC
[2017-03-08 08:37] VITALS: BP 122/62
[2017-03-08 09:09] VITALS: BP 108/60
--- NOTE | 2017-03-08 09:58 | Cons- Pulmonary ---
General Information and HPI Consulting Request Date of Consult: 03/08/17 Requested By: sayda Reason for Consult: Shortness of breath History of Present Illness: Patient is an 81-year-old with extensive cardiac history recent pacemaker and one-month hospitalization for CHF requiring dobutamine admitted with shortness of breath in the setting of elevated BNP and troponin. VQ scan negative for PE. Patient feels improved. Port 7 developed increased lower extremity edema. Allergies/Medications Allergies: Coded Allergies: gabapentin (From NEURONTIN) (Intermediate, INCREASED AGGITATION 11/20/16) prednisone (11/20/16) hydrocodone (GI DISTRESS 11/20/16) oxycodone (GI DISTRESS 11/20/16) Home Med List: Alprazolam 0.5 MG TABLET 1 TAB PO DAILY PRN ANXIETY (Reported) Amiodarone HCl 200 MG TABLET 1 TAB PO DAILY HEART (Reported) Aspirin (Aspirin*) 81 MG TAB.CHEW 1 TAB PO DAILY HEART HEALTH (Reported) Atorvastatin Calcium (Lipitor) 40 MG TABLET 1 TAB PO DAILY CHOLESTEROL ( Reported) Cholecalciferol (Vitamin D3) (Vitamin D) 1,000 UNIT TABLET 1 TAB PO DAILY SUPPLEMENT (Reported) Citalopram Hydrobromide (Citalopram HBr) 20 MG TABLET 1 TAB PO DAILY MENTAL HEALTH (Reported) Famotidine 20 MG TABLET 1 TAB PO DAILY GI (Reported) Furosemide (Lasix) 80 MG TABLET 1 TAB PO TID WATER PILL (Reported) Garlic (Garlic Oil) 1,000 MG CAPSULE 1 CAP PO DAILY SUPPLEMENT (Reported) Isosorbide Mononitrate (Isosorbide Mononitrate ER) 60 MG TAB.ER.24H 2 TAB PO DAILY HEART (Reported) Metoprolol Succinate 25 MG TAB 0.25 TAB PO BID HEART/BP (Reported) Multivitamin (Multiple Vitamins) 1 EACH TABLET 2 TAB PO DAILY SUPPLEMENT ( Reported) Nitroglycerin 0.4 MG TAB.SUBL 1 TAB SL AD PRN CHEST PAIN (Reported) 1st sign of attack; may repeat every 5 minutes until relief; if pain persists after 3 tablets in 15 minutes, prompt medical att Potassium Chloride 10 MEQ TAB.ER.PRT 1 TAB PO DAILY SUPPLEMENT (Reported) Zinc Gluconate (ZINC) 50 MG TABLET 1 TAB PO DAILY SUPPLEMENT (Reported) Review of Systems Review of Systems Constitutional: Denies: chills, fever. Cardiovascular: Reports: edema, orthopena. Denies: chest pain. Respiratory: Reports: orthopnea, short of breath. Denies: cough, hemoptysis, sputum production. GI: Denies: abdominal pain, diarrhea, melena. Past History Travel History Traveled to [place] past 21 day No Medical History Neurological: NONE EENT: NONE Cardiovascular: angina, CAD (- status post angioplasty X 7), CHF, hypertension, hyperlipidemia, myocardial infarction (X 3), STENT PLACEMENT Respiratory: NONE Gastrointestinal: NONE Hepatic: NONE Renal: nephrolithiasis Musculoskeletal: gout Psychiatric: anxiety, claustrophobia Endocrine: NONE Blood Disorders: NONE Cancer(s): NONE BLACK LEATHER TRIMMER/Reproductive: NONE Other Medical Hx: RETROPERITONEAL HEMATOMA Surgical History Surgical History: hernia repair-inguinal (left), hip replacement (right), CARDIAC STENTS Family History Relations & Conditions If Any: MOTHER FH: gastric cancer Relation not specified for: FH: CAD (coronary artery disease) FH: CAD (coronary artery disease) Psychosocial History Who Do You Live With? self Services at Home: None Primary Language: Czech Smoking Status: Never Smoked ETOH Use: denies use Illicit Drug Use: denies illicit drug use Functional Ability ADLs Independent: dressing, eating, toileting, bathing. Ambulation: independent IADLs Independent: shopping, housework, finances, food prep, telephone, transportation , medication admin. Exam & Diagnostic Data Last 24 Hrs of Vital Signs/I&O Vital Signs Date Time Temp Pulse Resp B/P B/P Pulse O2 O2 Flow FiO2 Mean Ox Delivery Rate 03/08 0944 97 122/60 03/08 0943 97 122/60 03/08 0909 98.8 97 20 108/60 97 Nasal Cannula 03/08 0158 99.2 03/08 0108 99.2 03/08 0036 77 130/60 03/08 0000 97 Nasal 2.0L Cannula 03/07 2226 100.5 03/07 2224 85 130/68 03/07 1709 91 120/78 03/07 1707 91 120/78 03/07 1600 95 Nasal 2.0L Cannula 03/07 1600 98.9 90 18 120/78 95 Nasal 2.0L Cannula Intake & Output 03/08 1600 03/08 0800 03/08 0000 Intake Total 450 540 Output Total 300 850 Balance 150 -310 Intake, IV 450 380 Intake, Oral 160 Output, Urine 300 850 Patient 203 lb Weight Patient is comfortable gentleman sitting out of bed oxygen saturation on 2 L is 98% exam of his chest shows rare basilar crackles are no wheezes cardiac exam shows regular S1 and S2 without murmurs abdomen is soft nontender extremities have 1-2+ symmetrical edema Last 48 Hrs of Labs/Maco: Laboratory Tests 03/08/17 0250: Anion Gap 12, Estimated GFR 49 L, BUN/Creatinine Ratio 19.3, APTT 75 H, CBC w Diff NO MAN DIFF REQ, RBC 3.08 L, MCV 94.2 H, MCH 31.1 H, RDW 17.4 H, MPV 6.7 L, Gran % 81.9 H, Lymphocytes % 7.7 L, Monocytes % 6.3, Eosinophils % 4.0 , Basophils % 0.1, Absolute Granulocytes 5.1, Absolute Lymphocytes 0.5 L, Absolute Monocytes 0.4, Absolute Eosinophils 0.2, Absolute Basophils 0, PUBS MCHC 33.0 03/07/17 1630: Troponin I 0.33 *H 03/07/17 1430: APTT 89 H 03/07/17 0927: Troponin I 0.37 *H 03/07/17 0805: Urine Color YEL, Urine Clarity CLEAR, Urine pH 6.0, Ur Specific [place] 1.015, Urine Protein 30 H, Urine Ketones NEG, Urine Nitrite NEG, Urine Bilirubin NEG, Urine Urobilinogen 0.2, Ur Leukocyte Esterase NEG, Ur Microscopic SEDIMENT EXAMINED, Urine RBC RARE, Urine WBC 1-3 H, Urine Hemoglobin TRACE-INTACT H, Urine Glucose NEG 03/07/17 0210: APTT 81 H 03/07/17 0055: CBC w Diff NO MAN DIFF REQ, RBC 2.98 L, MCV 93.0, MCH 31.0, RDW 16.9 H, MPV 6.6 L, Gran % 86.9 H, Lymphocytes % 4.8 L, Monocytes % 7.4, Eosinophils % 0.2 , Basophils % 0.7, Absolute Granulocytes 5.3, Absolute Lymphocytes 0.3 L, Absolute Monocytes 0.4, Absolute Eosinophils 0, Absolute Basophils 0, PUBS MCHC 33.3 03/06/17 2252: Troponin I 0.30 *H 03/06/17 1730: Troponin I 0.19 *H, Triglycerides 82, Cholesterol 99, LDL Cholesterol, Calc 43 L, HDL Cholesterol 40, Cholesterol/HDL Ratio 2 03/06/17 1410: APTT 74 H Assessment/Plan Impression/Plan: 81-year-old gentleman who has wanted shortness of breath congestive heart failure admitted with elevated BNP and troponin. His chest x-ray shows no evidence of pneumonia or effusions. Whether there is a component of drug- induced lung disease is uncertain and high-resolution CT scan of the chest without contrast is pending. Recommendations: Assess room air oxygen saturation. Continue negative fluid balance as renal function allows. Await results of CAT scan Consult Acknowledgment - Thank you for your consult request.
--- NOTE | 2017-03-08 12:25 | CT SCAN REPORT ---
EXAMINATION: CT CHEST WITHOUT CONTRAST CLINICAL INFORMATION: Chest pain and shortness of breath. Presumed diagnosis of congestive heart failure. History of amiodarone treatment. COMPARISON: Chest CT from 01/13/2015. TECHNIQUE: Multidetector volumetric CT imaging of the chest was performed. High-resolution, 0.625 mm axial images as well as 5 mm axial images are provided. Axial MIP volume rendering was performed. Sagittal and coronal reformatted images were obtained. DLP: 671 mGy-cm FINDINGS: LUNGS AND PLEURA: Multiple old stable calcified and noncalcified pulmonary nodules are consistent with remote granulomatous disease. There is likely a small amount of mucus along the posterior wall of the trachea. There is mild wall thickening of segmental and subsegmental bronchi in both lungs. Interlobular septal thickening is present, bilaterally, compatible with interstitial edema. Also, there is mild, patchy ground glass opacity in the lungs, most pronounced within the right upper lobe, and also likely reflecting presence of pulmonary edema. There are no regions of peripheral consolidation of high attenuation to suggest presence of amiodarone toxicity. No evidence of nonspecific interstitial pneumonitis (NSIP). There is a small right pleural effusion with compressive atelectasis in the right lower lobe. MEDIASTINUM: There is a left prepectoral cardiac pacemaker/AICD with transvenous leads extending to the right atrial appendage and both ventricles. Three-vessel coronary artery atherosclerotic calcification and cardiomegaly. Atherosclerotic aorta is normal in caliber. No pericardial effusion. Esophagus and thyroid gland are grossly unremarkable. LYMPHATICS: No pathologic sized axillary or hilar lymph nodes. Multiple clustered lymph nodes are seen within the mediastinum. The largest right paratracheal lymph nodes individually measure up to approximately 1.1 cm short axis dimension. The cluster of subcarinal lymph nodes is 2.4 cm AP, compared to 1.6 cm on 01/13/2015. Also, mildly enlarged lymph nodes are seen within the prevascular space and aortopulmonary window. UPPER ABDOMEN: There are several cysts of the visualized left kidney, largest measuring 2.9 cm. No acute findings in the visualized solid or hollow viscera of the upper abdomen. OSSEOUS STRUCTURES: Multilevel degenerative disc disease, and chondrocalcinosis, of the examined lower cervical, thoracic and upper lumbar spine. There is degenerative retrolisthesis of C6 on C7 and degenerative anterolisthesis of C7 on T1, T1 on T2, T5 and T6, T11 on T12 and T12 on L1. 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 There is an os acromiale of the right shoulder. Also, there is chondrocalcinosis and osteoarthritis of glenohumeral joints with mild anterior humeral subluxation at each glenohumeral joint. Intra-articular calcific debris is present in the right axillary pouch. IMPRESSION: 1. Mild pulmonary edema and small right pleural effusion 2. Three-vessel coronary artery atherosclerotic disease and cardiomegaly. 3. Multiple old, stable calcified and noncalcified pulmonary nodules, consistent with old granulomatous disease. 4. Mediastinal lymphadenopathy is likely reactive in nature. 5. No findings to suggest presence of amiodarone toxicity.
--- NOTE | 2017-03-08 13:33 | PN- Cardiology ---
Subjective Subjective: * Breathing is improved. * ventricular paced rhythm * No evidence of Amiodarone toxicity on chest CT. * troponin is trending down. * creatinine improved to 1.4 Objective Vital Signs and I&Os Vital Signs Date Time Temp Pulse Resp B/P B/P Pulse O2 O2 Flow FiO2 Mean Ox Delivery Rate 03/08 0944 97 122/60 03/08 0943 97 122/60 03/08 0909 98.8 97 20 108/60 97 Nasal Cannula 03/08 0800 Nasal 2.0L Cannula 03/08 0158 99.2 03/08 0108 99.2 03/08 0036 77 130/60 03/08 0000 97 Nasal 2.0L Cannula 03/07 2226 100.5 03/07 2224 85 130/68 03/07 1709 91 120/78 03/07 1707 91 120/78 03/07 1600 95 Nasal 2.0L Cannula 03/07 1600 98.9 90 18 120/78 95 Nasal 2.0L Cannula Intake & Output 03/08 1600 03/08 0800 03/08 0000 03/07 1600 03/07 0800 03/07 0000 Intake Total 450 540 480 575 360 Output Total 300 850 550 525 375 Balance 150 -310 -70 50 -15 Intake, IV 450 380 375 160 Intake, Oral 160 480 200 200 Output, Urine 300 850 550 525 375 Patient 203 lb Weight Physical Exam: General: WD/ WN male in NAD; alert and oriented x 3 Heart: RRR with 2/6 systolic murmur Lungs: mild dry crackles Extremities: no edema Assessment/Plan Assessment/Plan * Shortness of breath is improving with minimal findings on his recent chest CT. His crackles are dry sounding and are in excess of that expected for chronic RCA disease and his level of BNP elevation. This patient has been on Amiodarone but does not appear to have any signs of toxicity on his chest CT. This drug is likely not necessary at this time and will not be continued unless a clear indication for it is noted. Obtain pulmonary function tests. * Continue a small dose of metoprolol for now. Continue NTG. * Continue dobutamine drip at 7mcg/kg/min. Increase Lasix to 80mg IV BID. Follow BUN, creatinine and potassium. * There has been thought to try to open this patient's chronically occluded RCA. This would be difficult since it was already tried without success. In addition, opening chronic total occlusions tends to require extensive contrast usage which may not be possible in this patient with renal insufficiency. Finally, bypass surgery for one vessel, especially an RCA that does not cause pain is probably not indicated. These decisions can be made by the physicians at [facility] but I think this was also their thought. Continue telemetry? Yes
[2017-03-08 16:09] LABS: PTT 42 SEC (25-37)
[2017-03-08 16:38] VITALS: BP 112/62
[2017-03-08 23:35] LABS: PTT 81 SEC (25-37)
[2017-03-08 23:36] VITALS: BP 118/64
--- NOTE | 2017-03-09 07:49 | PN- Pulmonary ---
Subjective HPI/Critical Care Issues: Patient feels comfortable on room air shortness breath is resolved Objective Current Medications: Current Medications Sig/Reji Start time Last Medication Dose Route Stop Time Status Admin Acetaminophen 500 MG .STK-MED ONE 03/08 1602 DC PO 03/08 1603 Acetaminophen 500 MG Q6P PRN 03/06 2230 AC 03/09 PO 0053 Alprazolam 0.5 MG DAILY PRN 03/05 2200 AC 03/08 PO 03/12 215 1530 Aspirin 81 MG DAILY 03/06 1000 AC 03/08 PO 0944 Atorvastatin Calcium 40 [place] 17003/06 1700 AC 03/08 PO 1727 Cholecalciferol 1,000 IU DAILY 03/06 1000 AC 03/08 PO 0944 Citalopram 20 MG DAILY 03/06 1000 AC 03/08 Hydrobromide PO 0944 Digoxin 0.25 MG 17003/07 1700 AC 03/08 PO 1727 Dobutamine HCl 250 MG Q6H 03/07 1700 AC 03/09 Dextrose/Water 250 ML IV 0330 Docusate Sodium 100 MG .STK-MED ONE 03/08 0947 DC PO 03/08 0948 Docusate Sodium 100 MG DAILY NEEDED PRN 03/07 2245 AC 03/08 PO 0948 Famotidine 20 MG DAILY 03/06 1000 AC 03/08 PO 0944 Furosemide 80 MG BID 03/07 220 AC 03/08 IV 2139 Heparin Sodium 7,000 UNIT ONE ONE 03/08 1644 DC 03/08 (Porcine) IV 03/08 1645 1727 Heparin Sodium 25,000 UNIT .STK-MED ONE 03/08 1415 DC (Porcine) IV 03/08 1416 Heparin Sodium 25,000 UNIT Q24H 03/05 2130 AC 03/07 (Porcine) IV 1708 Sodium Chloride 500 ML Heparin Sodium/ 25,000 UNIT .STK-MED ONE 03/08 1415 DC Dextrose IV 03/08 1416 Isosorbide 120 MG DAILY 03/06 1000 AC 03/08 Mononitrate PO 0943 Metoprolol Tartrate 6.25 MG BID 03/05 2200 AC 03/08 PO 2145 Morphine Sulfate 4 MG Q4P PRN 03/05 2130 AC IV Multivitamins 2 TAB DAILY 03/06 1000 AC 03/08 Therapeutic PO 0944 Nitroglycerin 0.4 MG Q 5 MINUTES X 3 DO.. 03/05 2200 AC SL Polyethylene Glycol 17 GM DAILY PRN 03/08 1100 AC PO Potassium Chloride 10 MEQ DAILY 03/06 1000 AC 03/08 PO 0944 Prochlorperazine 10 MG Q6 PRN 03/05 2130 AC 03/06 PO 1736 Vital Signs & I&O Last 24 Hrs of Vitals and I&O: Vital Signs Date Time Temp Pulse Resp B/P B/P Pulse O2 O2 Flow FiO2 Mean Ox Delivery Rate 03/09 0000 Room Air 03/08 2336 98.9 92 20 118/64 94 03/08 1731 98.8 03/08 1728 94 112/62 03/08 1727 94 112/62 03/08 1638 101.0 94 20 112/62 94 Nasal Cannula 03/08 1400 97 122/60 03/08 0944 97 122/60 03/08 0943 97 122/60 03/08 0909 98.8 97 20 108/60 97 Nasal Cannula 03/08 0800 Nasal 2.0L Cannula Intake & Output 03/09 0800 03/09 0000 03/08 1600 Intake Total 928 854 480 Output Total 650 1050 550 Balance 278 -196 -70 Intake, IV 528 504 Intake, Oral 400 350 480 Number 0 0 Bowel Movements Output, Urine 650 1050 550 Patient 201 lb Weight Weight Standing Scale Measurement Method Room air sat 94% exam of his chest shows clear lung prince cardiac exam shows regular S1 and S2 without murmurs Impression/Plan Impression/Plan Impression/Plan: 81-year-old gentleman who has wanted shortness of breath congestive heart failure admitted with elevated BNP and troponin. His chest x-ray shows no evidence of pneumonia or effusions. CT scan documents pulmonary edema without drug-induced lung disease Recommendations: Assess room air oxygen saturation. Continue negative fluid balance as renal function allows. No active pulmonary issues please call for further pulmonary concerns
[2017-03-09 08:41] LABS: ABSOLUTE BASOPHIL COUNT 0 /CUMM (0.0-0.2); ABSOLUTE EOSINOPHIL COUNT 0.4 /CUMM (0.0-0.7); ABSOLUTE LYMPH COUNT 0.4 /CUMM (1.2-3.4); ABSOLUTE MONOCYTE COUNT 0.4 /CUMM (0.10-0.60); BASOPHIL % 0.1 % (0.0-2.0); EOSINOPHIL % 7.4 % (0-5); GRANULOCYTE % 76.2 % (42.2-75.2); HEMATOCRIT 28.3 % (42-52); MEAN CORPUSCULAR HGB 30.9 PG (27.0-31.0); MEAN CORPUSCULAR HGB CONC 33.2 G/DL (33.0-37.0); MEAN CORPUSCULAR VOLUME 93.2 FL (80.0-94.0); MEAN PLATELET VOLUME 6.8 FL (7.4-10.4); PLATELET COUNT 181 /CUMM (130-400); RBC DISTRIBUTION WIDTH 16.6 % (11.5-14.5); RED BLOOD CELL CT 3.04 /CUMM (4.70-6.10); WHITE BLOOD CELL COUNT 5.2 /CUMM (4.8-10.8)
[2017-03-09 09:10] VITALS: BP 112/70
--- NOTE | 2017-03-09 09:10 | PN- Housestaff ---
Subjective Follow-up For: CHF elevated troponins Subjective: seen and examined this morning. He was sitting comfortably in his recliner in no acute distress, remains on room air satting well, remains on IV Lasix 80 mg twice a day. Vitals within normal limits. Offers no new complaints. Review of Systems Constitutional: Reports: see HPI. Objective Last 24 Hrs of Vital Signs/I&O Vital Signs Date Time Temp Pulse Resp B/P B/P Pulse O2 O2 Flow FiO2 Mean Ox Delivery Rate 03/09 1230 86 112/70 03/09 1154 86 112/70 03/09 1154 86 112/70 03/09 0910 99.0 86 20 112/70 94 Room Air 03/09 0000 Room Air 03/08 2336 98.9 92 20 118/64 94 03/08 1731 98.8 03/08 1728 94 112/62 03/08 1727 94 112/62 03/08 1638 101.0 94 20 112/62 94 Nasal Cannula Intake & Output 03/09 1600 03/09 0800 03/09 0000 Intake Total 928 854 Output Total 650 1050 Balance 278 -196 Intake, IV 528 504 Intake, Oral 400 350 Number 0 0 Bowel Movements Output, Urine 650 1050 Patient 91.293 kg 91.172 kg Weight Weight Standing Scale Measurement Method Physical Exam General Appearance: Alert, Oriented X3, Cooperative, No Acute Distress Cardiovascular: Regular Rate, Normal S1, Normal S2, No Murmurs Lungs: Clear to Auscultation, Normal Air Movement Extremities: No Clubbing, No Cyanosis, No Edema Current Medications: Current Medications Sig/Reji Start time Last Medication Dose Route Stop Time Status Admin Acetaminophen 500 MG .STK-MED ONE 03/09 0052 DC PO 03/09 0053 Acetaminophen 500 MG Q6P PRN 03/06 2230 AC 03/09 PO 0053 Alprazolam 0.5 MG DAILY PRN 03/05 2200 AC 03/09 PO 03/12 215 1230 Aspirin 81 MG DAILY 03/06 1000 AC 03/09 PO 1154 Atorvastatin Calcium 40 MG 1700 03/06 1700 AC 03/08 PO 1727 Cholecalciferol 1,000 IU DAILY 03/06 1000 AC 03/09 PO 1155 Citalopram 20 MG DAILY 03/06 1000 AC 03/09 Hydrobromide PO 1154 Digoxin 0.25 MG 17003/07 1700 AC 03/08 PO 1727 Dobutamine HCl 250 MG Q6H 03/07 1700 AC 03/09 Dextrose/Water 250 ML IV 1230 Docusate Sodium 100 MG DAILY NEEDED PRN 03/07 2245 AC 03/09 PO 1156 Famotidine 20 MG DAILY 03/06 1000 AC 03/09 PO 1155 Furosemide 80 MG BID 03/07 2200 AC 03/09 IV 1154 Heparin Sodium 7,000 UNIT ONE ONE 03/08 1644 DC 03/08 (Porcine) IV 03/08 1645 1727 Heparin Sodium 25,000 UNIT Q24H 03/05 213 AC 03/07 (Porcine) IV 1708 Sodium Chloride 500 ML Isosorbide 120 MG DAILY 03/06 1000 AC 03/09 Mononitrate PO 1154 Metoprolol Tartrate 6.25 MG BID 03/05 2200 AC 03/09 PO 1154 Morphine Sulfate 4 MG Q4P PRN 03/05 213 AC IV Multivitamins 2 TAB DAILY 03/06 1000 AC 03/09 Therapeutic PO 1155 Nitroglycerin 0.4 MG Q 5 MINUTES X 3 DO.. 03/05 2200 AC SL Polyethylene Glycol 17 GM DAILY PRN 03/08 1100 AC PO Potassium Chloride 10 MEQ DAILY 03/06 1000 AC 03/09 PO 1154 Prochlorperazine 10 MG Q6 PRN 03/05 2130 AC 03/06 PO 1736 Last 24 Hrs of Lab/Maco Results Last 24 Hrs of Labs/Mics: Laboratory Tests 03/09/17 0730: Anion Gap 11, Estimated GFR 53 L, BUN/Creatinine Ratio 19.2, CBC w Diff NO MAN DIFF REQ, RBC 3.04 L, MCV 93.2, MCH 30.9, RDW 16.6 H, MPV 6.8 L, Gran % 76.2 H, Lymphocytes % 8.2 L, Monocytes % 8.1, Eosinophils % 7.4 H, Basophils % 0.1, Absolute Granulocytes 4.0, Absolute Lymphocytes 0.4 L, Absolute Monocytes 0.4, Absolute Eosinophils 0.4, Absolute Basophils 0, PUBS MCHC 33.2 03/08/17 2300: APTT 81 H Assessment/Plan Assessment: Patient continue to "feel terrible" and feels that nothing is being done. He is in agreement to stay for treatment for now. Records from [facility] are still pending. Patient has extensive crackles for which lasix were increasd. His shortness of breath appears multifactorial, aminodarone is discontinued for fear of pulmonary fibrosis. CT Chest is order and pending. Dobutamine and Heparin drips are continued. Problem List: -CHF exacerbation -Acute kidney injury -Anemia -Hypertension -Hyperlipidemia Plan: -Telemetry -Supplemental oxygen, taper as tolerated -Trend troponin/EKG -Amiodarone discontinued -Heparin Drip -Dobutamin drip -Aspirin/Metoprolol/NTG -Atorvastatin 40mg PO Daily -Lasix 80mg IV BID -Digoxin 0.25mcg PO Daily -Cardiology following -Pulmonology consult placed, follow up recommendations -Follow up record request from [facility] -Heart Healthy Diet -DVT PPx -FULL CODE -Follow up CT chest Problem List: 1. Acute non-ST segment elevation myocardial infarction 2. CHF (congestive heart failure) Pain Ratin Pain Location: None Pain Goal: Remain pain free Pain Plan: [facility] Tomorrow's Labs & Rationales: CBC for H&H monitoring and platelet monitoring while being on heparin
--- NOTE | 2017-03-09 11:03 | PN- Cardiology ---
Subjective Subjective: The patient reports that he is feeling somewhat better. Shortness of breath is improving. No recent chest pain. No palpitations. No diaphoresis. No lightheadedness or dizziness. No nausea or vomiting. Dobutamine drip is continuing. Digoxin has been started. Objective Vital Signs and I&Os Vital Signs Date Time Temp Pulse Resp B/P B/P Pulse O2 O2 Flow FiO2 Mean Ox Delivery Rate 03/09 0910 99.0 86 20 112/70 94 Room Air 03/09 0000 Room Air 03/08 2336 98.9 92 20 118/64 94 03/08 1731 98.8 03/08 1728 94 112/62 03/08 1727 94 112/62 03/08 1638 101.0 94 20 112/62 94 Nasal Cannula 03/08 1400 97 122/60 Intake & Output 03/09 1600 03/09 0800 03/09 0000 03/08 1600 03/08 0800 03/08 0000 Intake Total 928 854 480 450 540 Output Total 650 1050 550 300 850 Balance 278 -196 -70 150 -310 Intake, IV 528 504 450 380 Intake, Oral 400 350 480 160 Number 0 0 Bowel Movements Output, Urine 650 1050 550 300 850 Patient 201 lb 203 lb Weight Weight Standing Scale Measurement Method Physical Exam: Gen: NAD HEENT: normal Lungs: rales in the bases bilaterally, normal resp. effort Heart: RRR, S1, S2, 2/6 systolic murmur Abdomen: Soft, nontender, no masses Extremities: 1+ edema Neuro: Alert and oriented x 3, cranial nerves intact Current Medications: Current Medications Sig/Reji Start time Last Medication Dose Route Stop Time Status Admin Acetaminophen 500 MG .STK-MED ONE 03/09 0052 DC PO 03/09 0053 Acetaminophen 500 MG .STK-MED ONE 03/08 1602 DC PO 03/08 1603 Acetaminophen 500 MG Q6P PRN 03/06 2230 AC 03/09 PO 0053 Alprazolam 0.5 MG DAILY PRN 03/05 2200 AC 03/08 PO 03/12 215 1530 Aspirin 81 MG DAILY 03/06 1000 AC 03/08 PO 0944 Atorvastatin Calcium 40 MG 1700 03/06 1700 AC 03/08 PO 1727 Cholecalciferol 1,000 IU DAILY 03/06 1000 AC 03/08 PO 943 Citalopram 20 MG DAILY 03/06 1000 AC 03/08 Hydrobromide PO 0944 Digoxin 0.25 MG 1700 03/07 1700 AC 03/08 PO 1727 Dobutamine HCl 250 MG Q6H 03/07 1700 AC 03/09 Dextrose/Water 250 ML IV 0330 Docusate Sodium 100 MG DAILY NEEDED PRN 03/07 2245 AC 03/08 PO 0948 Famotidine 20 MG DAILY 03/06 1000 AC 03/08 PO 0944 Furosemide 80 MG BID 03/07 220 AC 03/08 IV 2139 Heparin Sodium 7,000 UNIT ONE ONE 03/08 1644 DC 03/08 (Porcine) IV 03/08 1645 1727 Heparin Sodium 25,000 UNIT .STK-MED ONE 03/08 1415 DC (Porcine) IV 03/08 1416 Heparin Sodium 25,000 UNIT Q24H 03/05 213 03/07 (Porcine) IV 1708 Sodium Chloride 500 ML Heparin Sodium/ 25,000 UNIT .STK-MED ONE 03/08 1415 DC Dextrose IV 03/08 1416 Isosorbide 120 MG DAILY 03/06 1000 AC 03/08 Mononitrate PO 0943 Metoprolol Tartrate 6.25 MG BID 03/05 220 AC 03/08 PO 2145 Morphine Sulfate 4 MG Q4P PRN 03/05 2130 AC IV Multivitamins 2 TAB DAILY 03/06 1000 AC 03/08 Therapeutic PO 0944 Nitroglycerin 0.4 MG Q 5 MINUTES X 3 DO.. 03/05 2200 AC SL Polyethylene Glycol 17 GM DAILY PRN 03/08 1100 AC PO Potassium Chloride 10 MEQ DAILY 03/06 1000 AC 03/08 PO 0944 Prochlorperazine 10 MG Q6 PRN 03/05 213 AC 03/06 PO 1736 Results Last 48 Hrs of Labs/Mics: Laboratory Tests 03/09/17 0730: Anion Gap 11, Estimated GFR 53 L, BUN/Creatinine Ratio 19.2, CBC w Diff NO MAN DIFF REQ, RBC 3.04 L, MCV 93.2, MCH 30.9, RDW 16.6 H, MPV 6.8 L, Gran % 76.2 H, Lymphocytes % 8.2 L, Monocytes % 8.1, Eosinophils % 7.4 H, Basophils % 0.1, Absolute Granulocytes 4.0, Absolute Lymphocytes 0.4 L, Absolute Monocytes 0.4, Absolute Eosinophils 0.4, Absolute Basophils 0, PUBS MCHC 33.2 03/08/17 2300: APTT 81 H 03/08/17 1450: APTT 42 H 03/08/17 0250: Anion Gap 12, Estimated GFR 49 L, BUN/Creatinine Ratio 19.3, APTT 75 H, CBC w Diff NO MAN DIFF REQ, RBC 3.08 L, MCV 94.2 H, MCH 31.1 H, RDW 17.4 H, MPV 6.7 L, Gran % 81.9 H, Lymphocytes % 7.7 L, Monocytes % 6.3, Eosinophils % 4.0 , Basophils % 0.1, Absolute Granulocytes 5.1, Absolute Lymphocytes 0.5 L, Absolute Monocytes 0.4, Absolute Eosinophils 0.2, Absolute Basophils 0, PUBS MCHC 33.0 03/07/17 1630: Troponin I 0.33 *H 03/07/17 1430: APTT 89 H Recent Imaging Studies: Echocardiogram 03/06/17: Mild left ventricular dilatation. Mild concentric left ventricular hypertrophy. Left ventricular ejection fraction is estimated at 30-35%. Global hypokinesis. Reduced right ventricular global systolic function. Mild right atrial dilatation. Mild left atrial dilatation. Mitral valve thickened. Mild mitral regurgitation. Mild aortic stenosis. Mild aortic regurgitation. Mild tricuspid regurgitation. Right ventricular systolic pressure estimated to be elevated at 53 mmHg. Trace pulmonic regurgitation. Assessment/Plan Assessment/Plan Assessment: 1. CAD with chronic total occlusion 2. Acute on chronic systolic heart failure 3. Recent biventricular defibrillator placement Plan: * Continue dobutamine drip * Continue IV Lasix * Continues to request records from [facility] * Continue other medications * Continue IV heparin, we will plan on changing to Eliquis prior to discharge Continue telemetry? Yes
[2017-03-09 16:12] VITALS: BP 117/66
[2017-03-09 18:47] LABS: PTT 67 SEC (25-37)
[2017-03-10 00:38] VITALS: BP 120/60
[2017-03-10 00:39] VITALS: BP 160/66
--- NOTE | 2017-03-10 07:12 | PN- Housestaff ---
Subjective Follow-up For: Acute on chronic systolic heart failure CAD Subjective: Patient seen and examined this morning. He was sitting comfortably in his recliner in no acute distress. Currently on room air satting in high 90s, otherwise is within normal limits. Remains on IV heparin drip and dobutamine drip, pending receipt of records from [facility] for his recent admission. Denies any chest pain, palpitation, dizziness. Review of Systems Constitutional: Denies: chills, fever. Cardiovascular: Denies: chest pain, palpitations. Respiratory: Denies: cough, short of breath, sputum production. Gastrointestinal: Denies: abdominal pain, constipation, diarrhea, nausea, vomiting. Objective Last 24 Hrs of Vital Signs/I&O Vital Signs Date Time Temp Pulse Resp B/P B/P Pulse O2 O2 Flow FiO2 Mean Ox Delivery Rate 03/10 0829 98.8 80 18 122/68 93 03/10 0637 79 124/72 03/10 0038 99.7 73 18 120/60 97 Room Air 03/10 0000 95 Room Air 03/09 2345 98.7 71 16 120/70 03/09 2104 120/70 03/09 2001 100.3 03/09 1723 97.8 71 16 94 Room Air 03/09 1715 92 117/66 03/09 1714 92 117/66 03/09 1612 99.6 92 16 117/66 93 Room Air 03/09 1230 86 112/70 03/09 1154 86 112/70 03/09 1154 86 112/70 03/09 0910 99.0 86 20 112/70 94 Room Air Intake & Output 03/10 1600 03/10 0800 03/10 0000 Intake Total 1040 335.4 Output Total 1300 425 Balance -260 -89.6 Intake, IV 640 215.4 Intake, Oral 400 120 Output, Urine 1300 425 Patient 91.852 kg Weight Weight Standing Scale Measurement Method Physical Exam General Appearance: Alert, Oriented X3, Cooperative, No Acute Distress Cardiovascular: Regular Rate, Normal S1, Normal S2, No Murmurs Lungs: Clear to Auscultation, Normal Air Movement Abdomen: Normal Bowel Sounds, Soft, No Tenderness Extremities: No Clubbing, No Cyanosis, bilateral lower extremity edema 2+ Current Medications: Current Medications Sig/Reji Start time Last Medication Dose Route Stop Time Status Admin Acetaminophen 500 MG .STK-MED ONE 06/12 1710 DC PO 03/09 1711 Acetaminophen 500 MG Q6P PRN 03/06 2230 AC 03/09 PO 1714 Alprazolam 0.5 MG DAILY PRN 03/05 2200 AC 03/09 PO 03/12 2159 1230 Aspirin 81 MG DAILY 03/06 1000 AC 03/09 PO 1154 Atorvastatin Calcium 40 MG 1700 03/06 1700 AC 03/09 PO 1714 Cholecalciferol 1,000 IU DAILY 03/06 1000 AC 03/09 PO 1155 Citalopram 20 MG DAILY 03/06 1000 AC 03/09 Hydrobromide PO 1154 Digoxin 0.25 MG 17003/07 1700 AC 03/09 PO 1714 Dobutamine HCl 250 MG Q6H 03/07 170 AC 03/10 Dextrose/Water 250 ML IV 0637 Docusate Sodium 100 MG .STK-MED ONE 03/09 1154 DC PO 03/09 1155 Docusate Sodium 100 MG DAILY NEEDED PRN 03/07 2245 AC 03/09 PO 1156 Famotidine 20 MG DAILY 03/06 1000 AC 03/09 PO 1155 Furosemide 80 MG BID 03/07 2200 AC 03/09 IV 2103 Heparin Sodium 25,000 UNIT Q24H 03/05 2130 AC 03/09 (Porcine) IV 2257 Sodium Chloride 500 ML Isosorbide 120 MG DAILY 03/06 1000 AC 03/09 Mononitrate PO 1154 Metoprolol Tartrate 6.25 MG BID 03/05 220 AC 03/09 PO 2104 Morphine Sulfate 4 MG Q4P PRN 03/05 213 AC IV Multivitamins 2 TAB DAILY 03/06 1000 AC 03/09 Therapeutic PO 1155 Nitroglycerin 0.4 MG Q 5 MINUTES X 3 DO.. 03/05 2200 AC SL Polyethylene Glycol 17 GM DAILY PRN 03/08 1100 AC PO Potassium Chloride 10 MEQ DAILY 03/06 1000 AC 03/09 PO 1154 Prochlorperazine 10 MG Q6 PRN 03/05 213 AC 03/06 PO 1736 Last 24 Hrs of Lab/Maco Results Last 24 Hrs of Labs/Mics: Laboratory Tests 03/09/17 1710: APTT 67 H 03/09/17 1100: APTT Cancelled Assessment/Plan Assessment: Patient continue to "feel terrible" and feels that nothing is being done. He is in agreement to stay for treatment for now. Records from [facility] are still pending. Patient has extensive crackles for which lasix were increasd. His shortness of breath appears multifactorial, aminodarone is discontinued for fear of pulmonary fibrosis. CT Chest is order and pending. Dobutamine and Heparin drips are continued. Problem List: -CHF exacerbation -Acute kidney injury -Anemia -Hypertension -Hyperlipidemia Plan: -Telemetry -Supplemental oxygen, taper as tolerated -Trend troponin/EKG -Amiodarone discontinued -Heparin Drip -Dobutamin drip -Aspirin/Metoprolol/NTG -Atorvastatin 40mg PO Daily -Lasix 80mg IV BID -Digoxin 0.25mcg PO Daily -Cardiology following -Pulmonology consult placed, follow up recommendations -Follow up record request from [facility] -Heart Healthy Diet -DVT PPx -FULL CODE -Follow up CT chest Problem List: 1. Acute non-ST segment elevation myocardial infarction 2. CHF (congestive heart failure) Pain Ratin Pain Location: none Pain Goal: Remain pain free Pain Plan: Mild pain pathway Tomorrow's Labs & Rationales: CBC for H&H monitoring and platelets monitoring while being on a heparin and BMP
[2017-03-10 08:29] VITALS: BP 122/68
[2017-03-10 08:53] LABS: ABSOLUTE BASOPHIL COUNT 0 /CUMM (0.0-0.2); ABSOLUTE EOSINOPHIL COUNT 0.6 /CUMM (0.0-0.7); ABSOLUTE GRANULOCYTE CT 4.4 /CUMM (1.4-6.5); ABSOLUTE LYMPH COUNT 0.4 /CUMM (1.2-3.4); ABSOLUTE MONOCYTE COUNT 0.4 /CUMM (0.10-0.60); BASOPHIL % 0 % (0.0-2.0); EOSINOPHIL % 10.4 % (0-5); HEMATOCRIT 27.3 % (42-52); MEAN CORPUSCULAR HGB 30.7 PG (27.0-31.0); MEAN CORPUSCULAR HGB CONC 33.2 G/DL (33.0-37.0); MEAN CORPUSCULAR VOLUME 92.4 FL (80.0-94.0); MEAN PLATELET VOLUME 6.4 FL (7.4-10.4); RBC DISTRIBUTION WIDTH 16.6 % (11.5-14.5); RED BLOOD CELL CT 2.96 /CUMM (4.70-6.10); WHITE BLOOD CELL COUNT 5.7 /CUMM (4.8-10.8)
[2017-03-10 09:03] LABS: PTT 74 SEC (25-37)
[2017-03-10 09:13] LABS: GRANULOCYTE % 76.9 % (42.2-75.2); PLATELET COUNT 174 /CUMM (130-400)
--- NOTE | 2017-03-10 10:37 | PN- Cardiology ---
EDESTEFANI,[facility] 03/10/17 1036: Subjective Subjective: Patient seen and examined, setting on the chair sleepy, he states that he is feeling tired as he didn't get much sleep overnight because he was waking up frequently for medication. He feels that his breathing is improving and also has bilateral lower extremity edema improved. He denies any chest pain, shortness of breath, heart racing, fever, chills, and there is no change in bowel habits. He mentioned that he urinates frequently and he attributed this to Lasix. Currently he is on room air with oxygen saturation of 93%, her vitals are stable Review of Systems Constitutional: Reports: no symptoms. EENTM: Reports: no symptoms. Cardiovascular: Reports: edema, orthopena, peripheral edema. Respiratory: Reports: no symptoms. Gastrointestinal: Reports: no symptoms. Genitourinary: Reports: frequency. Musculoskeletal: Reports: no symptoms. Skin: Reports: no symptoms. Neurological/Psychological: Reports: no symptoms. Hematologic/Endocrine: Reports: no symptoms. Immunologic/Allergic: Reports: no symptoms. All Other Systems: Reviewed and Negative Objective Vital Signs and I&Os Vital Signs Date Time Temp Pulse Resp B/P B/P Pulse O2 O2 Flow FiO2 Mean Ox Delivery Rate 03/10 0829 98.8 80 18 122/68 93 03/10 0637 79 124/72 03/10 0038 99.7 73 18 120/60 97 Room Air 03/10 0000 95 Room Air 03/09 2345 98.7 71 16 120/70 03/09 2104 120/70 03/09 2001 100.3 03/09 1723 97.8 71 16 94 Room Air 03/09 1715 92 117/66 03/09 1714 92 117/66 03/09 1612 99.6 92 16 117/66 93 Room Air 03/09 1230 86 112/70 03/09 1154 86 112/70 03/09 1154 86 112/70 Intake & Output 03/10 1600 03/10 0803/10 0000 03/09 1600 03/09 0800 03/09 0000 Intake Total 1040 335.4 850 928 854 Output Total 5739 056 9427 650 1050 Balance -260 -89.6 -850 278 -196 Intake, IV 640 215.4 350 528 504 Intake, Oral 400 120 500 400 350 Number 1 0 0 Bowel Movements Output, Urine 7433 740 9271 650 1050 Patient 203 lb 201 lb 201 lb Weight Weight Standing Scale Standing Scale Measurement Method Physical Exam General Appearance: well developed/nourished, no apparent distress, alert, awake , comfortable Head: atraumatic, normal appearance Neck: normal inspection, supple, full range of motion Respiratory: chest non-tender, decreased breath sounds, crackles Cardiovascular: edema, normal peripheral pulses Peripheral Pulses: 3+ dorsalis pedis (R), 3+ dorsalis pedis (L) Abdomen: normal bowel sounds, soft, non-tender Extremities: +2 EDEMA Skin: intact, normal color, warm/dry Current Medications: Current Medications Sig/Reji Start time Last Medication Dose Route Stop Time Status Admin Acetaminophen 500 MG .STK-MED ONE 03/09 171 DC PO 03/09 171 Acetaminophen 500 MG Q6P PRN 03/06 2230 AC 03/09 PO 1714 Alprazolam 0.5 MG DAILY PRN 03/05 2200 AC 03/09 PO 03/12 215 1230 Aspirin 81 MG DAILY 03/06 1000 AC 03/10 PO 1013 Atorvastatin Calcium 40 [place] [address]003/06 1700 AC 03/09 PO 1714 Cholecalciferol 1,000 IU DAILY 03/06 1000 AC 03/10 PO 1014 Citalopram 20 MG DAILY 03/06 1000 AC 03/10 Hydrobromide PO 1013 Digoxin 0.25 MG 1700 03/07 1700 AC 03/09 PO 1714 Dobutamine HCl 250 MG Q6H 03/07 1700 AC 03/10 Dextrose/Water 250 ML IV 1032 Docusate Sodium 100 MG .STK-MED ONE 03/09 1154 DC PO 03/09 1155 Docusate Sodium 100 MG DAILY NEEDED PRN 03/07 2245 AC 03/10 PO 1016 Famotidine 20 MG DAILY 03/06 1000 AC 03/10 PO 1014 Furosemide 80 MG BID 03/07 2200 AC 03/10 IV 1012 Heparin Sodium 25,000 UNIT Q24H 03/05 2130 AC 03/09 (Porcine) IV 2257 Sodium Chloride 500 ML Isosorbide 120 MG DAILY 03/06 1000 AC 03/10 Mononitrate PO 1013 Metoprolol Tartrate 6.25 MG BID 03/05 2200 AC 03/10 PO 1014 Morphine Sulfate 4 MG Q4P PRN 03/05 2130 AC IV Multivitamins 2 TAB DAILY 03/06 1000 AC 03/10 Therapeutic PO 1014 Nitroglycerin 0.4 MG Q 5 MINUTES X 3 DO.. 03/05 2200 AC SL Polyethylene Glycol 17 GM DAILY PRN 03/08 1100 AC PO Potassium Chloride 10 MEQ DAILY 03/06 1000 AC 03/10 PO 1013 Prochlorperazine 10 MG Q6 PRN 03/05 2130 AC 03/06 PO 1736 Results Last 48 Hrs of Labs/Mics: Laboratory Tests 03/10/17 0835: Anion Gap 11, Estimated GFR 53 L, BUN/Creatinine Ratio 18.5, APTT 74 H, CBC w Diff NO MAN DIFF REQ, RBC 2.96 L, MCV 92.4, MCH 30.7, RDW 16.6 H, MPV 6.4 L, Gran % 76.9 H, Lymphocytes % 6.4 L, Monocytes % 6.3, Eosinophils % 10.4 H, Basophils % 0 L, Absolute Granulocytes 4.4, Absolute Lymphocytes 0.4 L, Absolute Monocytes 0.4, Absolute Eosinophils 0.6, Absolute Basophils 0, PUBS MCHC 33.2 03/09/17 1710: APTT 67 H 03/09/17 1100: APTT Cancelled 03/09/17 0730: Anion Gap 11, Estimated GFR 53 L, BUN/Creatinine Ratio 19.2, CBC w Diff NO MAN DIFF REQ, RBC 3.04 L, MCV 93.2, MCH 30.9, RDW 16.6 H, MPV 6.8 L, Gran % 76.2 H, Lymphocytes % 8.2 L, Monocytes % 8.1, Eosinophils % 7.4 H, Basophils % 0.1, Absolute Granulocytes 4.0, Absolute Lymphocytes 0.4 L, Absolute Monocytes 0.4, Absolute Eosinophils 0.4, Absolute Basophils 0, PUBS MCHC 33.2 03/08/17 2300: APTT 81 H 03/08/17 1450: APTT 42 H Recent Imaging Studies: ECHOCARDIOGRAM @ 03/06/2017: CONCLUSIONS Mild left ventricular dilatation. Mild concentric left ventricular hypertrophy. Left ventricular ejection fraction is estimated at 30-35%. Global hypokinesis. Reduced right ventricular global systolic function. Mild right atrial dilatation. Mild left atrial dilatation. Mitral valve thickened. Mild mitral regurgitation. Mild aortic stenosis. Mild aortic regurgitation. Mild tricuspid regurgitation. Right ventricular systolic pressure estimated to be elevated at 53 mmHg. Trace pulmonic regurgitation. Assessment/Plan Assessment/Plan Patient is a 81 year old male who has come to the ED with worsening shortness of breath, with PMH significant for CAD s/p catheterizations, Afib, CHF, HTN, HLD, s/p pacemaker placement at [facility], and was recently discharged from there after about a month of hospitalization for management of CHF. Presented to emergency department at 03/05/2017 for chief complaint of shortness of breath, admitted to [facility] for management of CHF exacerbation. Assessment: #CAD with chronic total occlusion #Acute on chronic systolic heart failure #fib status post Recent biventricular defibrillator placement #MARY #History of diabetes, hypertension and hyperlipidemia Plan: * Discontinue dobutamine drip * Continue 80 mg IV Lasix BID * F/U records from [facility] * Continue other medications * Discontinue IV heparin, change to Eliquis 5mg BID * Daily BEP * Strict I's and O's and daily weight * PT evaluation Continue telemetry? Yes Problem List: 1. CHF (congestive heart failure) 2. Volume overload AUSTYN MILLER MD 03/10/17 1130: Attending MD Review Statement Attending Statement Attending MD Statement: examined this patient, discuss w/resident/PA/CRA OFFICER, agreed w/resident/PA/CRA OFFICER, discussed with family, reviewed EMR data (avail), discussed w/ nursing, discussed w/case mgmt, reviewed images, amended to note Attending Assessment/Plan: The patient reports that he is feeling better. His shortness of breath is improving. No recent chest pain. No palpitations. No diaphoresis. No nausea or vomiting. Vital Signs Date Time Temp Pulse Resp B/P B/P Pulse O2 O2 Flow FiO2 Mean Ox Delivery Rate 03/10 2119 68 124/60 03/10 1745 99.1 03/10 1641 100.0 03/10 1639 88 118/60 03/10 1629 100.0 88 20 118/60 97 Nasal 2.0L Cannula 03/10 0829 98.8 80 18 122/68 93 03/10 0637 79 124/72 03/10 0038 99.7 73 18 120/60 97 Room Air 03/10 0000 95 Room Air 03/09 2345 98.7 71 16 120/70 Gen: NAD HEENT: normal Lungs: rales in the bases bilaterally, normal resp. effort Heart: RRR, S1, S2, 2/6 systolic murmur Abdomen: Soft, nontender, no masses Extremities: 1+ edema Neuro: Alert and oriented x 3, cranial nerves intact Laboratory Tests 03/10 03/09 03/09 0835 1710 1100 Chemistry Sodium (137 - 145 mmol/L) 132 L Potassium (3.5 - 5.1 mmol/L) 3.4 L Chloride (98 - 107 mmol/L) 97 L Carbon Dioxide (22 - 30 mmol/L) 25 Anion Gap (5 - 16) 11 BUN (9 - 20 mg/dL) 24 H Creatinine (0.7 - 1.2 mg/dL) 1.3 H Estimated GFR (>60 ml/min) 53 L BUN/Creatinine Ratio (7 - 25 %) 18.5 Coagulation APTT (25 - 37 SEC) 74 H 67 H Cancelled Hematology CBC w Diff NO MAN DIFF REQ WBC (4.8 - 10.8 /CUMM) 5.7 RBC (4.70 - 6.10 /CUMM) 2.96 L Hgb (14.0 - 18.0 G/DL) 9.1 L Hct (42 - 52 %) 27.3 L MCV (80.0 - 94.0 FL) 92.4 MCH (27.0 - 31.0 PG) 30.7 RDW (11.5 - 14.5 %) 16.6 H Plt Count (130 - 400 /CUMM) 174 MPV (7.4 - 10.4 FL) 6.4 L Gran % (42.2 - 75.2 %) 76.9 H Lymphocytes % (20.5 - 51.1 %) 6.4 L Monocytes % (1.7 - 9.3 %) 6.3 Eosinophils % (0 - 5 %) 10.4 H Basophils % (0.0 - 2.0 %) 0 L Absolute Granulocytes (1.4 - 6.5 /CUMM) 4.4 Absolute Lymphocytes (1.2 - 3.4 /CUMM) 0.4 L Absolute Monocytes (0.10 - 0.60 /CUMM) 0.4 Absolute Eosinophils (0.0 - 0.7 /CUMM) 0.6 Absolute Basophils (0.0 - 0.2 /CUMM) 0 PUBS MCHC (33.0 - 37.0 G/DL) 33.2 0603/08 0730 2300 Chemistry Sodium (137 - 145 mmol/L) 135 L Potassium (3.5 - 5.1 mmol/L) 3.6 Chloride (98 - 107 mmol/L) 99 Carbon Dioxide (22 - 30 mmol/L) 24 Anion Gap (5 - 16) 11 BUN (9 - 20 mg/dL) 25 H Creatinine (0.7 - 1.2 mg/dL) 1.3 H Estimated GFR (>60 ml/min) 53 L BUN/Creatinine Ratio (7 - 25 %) 19.2 Coagulation APTT (25 - 37 SEC) 81 H Hematology CBC w Diff NO MAN DIFF REQ WBC (4.8 - 10.8 /CUMM) 5.2 RBC (4.70 - 6.10 /CUMM) 3.04 L Hgb (14.0 - 18.0 G/DL) 9.4 L Hct (42 - 52 %) 28.3 L MCV (80.0 - 94.0 FL) 93.2 MCH (27.0 - 31.0 PG) 30.9 RDW (11.5 - 14.5 %) 16.6 H Plt Count (130 - 400 /CUMM) 181 MPV (7.4 - 10.4 FL) 6.8 L Gran % (42.2 - 75.2 %) 76.2 H Lymphocytes % (20.5 - 51.1 %) 8.2 L Monocytes % (1.7 - 9.3 %) 8.1 Eosinophils % (0 - 5 %) 7.4 H Basophils % (0.0 - 2.0 %) 0.1 Absolute Granulocytes (1.4 - 6.5 /CUMM) 4.0 Absolute Lymphocytes (1.2 - 3.4 /CUMM) 0.4 L Absolute Monocytes (0.10 - 0.60 /CUMM) 0.4 Absolute Eosinophils (0.0 - 0.7 /CUMM) 0.4 Absolute Basophils (0.0 - 0.2 /CUMM) 0 PUBS MCHC (33.0 - 37.0 G/DL) 33.2 Assessment: 1. CAD with chronic total occlusion 2. Acute on chronic systolic heart failure 3. Recent biventricular defibrillator placement Plan: * Discontinue dobutamine deanna * Continue IV Lasix * Continues to request records from [facility] * Continue other medications * Discontinue IV heparin, and start Eliquis
[2017-03-10 16:29] VITALS: BP 118/60
[2017-03-11] VITALS: BP 110/58
--- NOTE | 2017-03-11 07:19 | PN- Housestaff ---
Subjective Follow-up For: Acute on chronic systolic heart failure, coronary artery disease Complaints: no complaints Tele-Events Since Last Visit: Single paced rhythm, heart rate ranging from 61-65, no overnight events. Subjective: I followed up and examined the patient today. He is resting comfortably in his chair, is not in distress, is not requiring additional oxygen. His vitals have been stable, overnight telemetry recording as noted above. No overnight issues. Review of Systems Constitutional: Reports: no symptoms. Objective Last 24 Hrs of Vital Signs/I&O Vital Signs Date Time Temp Pulse Resp B/P B/P Pulse O2 O2 Flow FiO2 Mean Ox Delivery Rate 03/11 1010 69 120/64 03/11 1009 69 120/64 03/11 0813 98.4 69 18 120/64 95 Room Air 03/11 0000 Room Air 03/11 0000 99.6 68 16 110/58 92 Room Air 03/10 2119 68 124/60 03/10 1745 99.1 03/10 1641 100.0 03/10 1639 88 118/60 03/10 1629 100.0 88 20 118/60 97 Nasal 2.0L Cannula Intake & Output 03/11 1600 03/11 0800 03/11 0000 Intake Total 240 120 Output Total 725 150 Balance -485 -30 Intake, Oral 240 120 Output, Urine 725 150 Physical Exam General Appearance: Alert, Oriented X3, Cooperative, No Acute Distress Lungs: b/l crackles, not in distress Other Physical Findings: Cardiovascular: Regular Rate, Normal S1, Normal S2, No Murmurs Abdomen: Normal Bowel Sounds, Soft, No Tenderness Extremities: No Clubbing, No Cyanosis, bilateral lower extremity edema 2+ Assessment/Plan Assessment: Patient is a 81 year old male who has come to the ED with worsening shortness of breath, with PMH significant for CAD s/p catheterizations, Afib, CHF, HTN, HLD, s/p pacemaker placement at [facility], and was recently discharged from there after about a month of hospitalization. He is currently being managed in the telemetry floor for the following issues: Problem List: -CHF exacerbation -Acute kidney injury -Anemia -Hypertension -Hyperlipidemia Plan: -Continue Telemetry -Oxygen tpaered to room air -ACS ruled out already -Amiodarone , Heparin gtt, Dobutamin gtt discontinued -Continue Aspirin/Metoprolol/NTG -Continue Atorvastatin 40mg PO Daily -Continue IV Lasix 80mg BID -Continue Digoxin 0.25mcg PO Daily -Pulmonology consultation has signed off saying no active pulm issues on 03/09/17 -Follow up record request from [facility]. Getting it today late afternoon. Awaiting. -Heart Healthy Diet -DVT PPx -FULL CODE -Follow up CT chest Problem List: 1. CHF (congestive heart failure) 2. CAD (coronary artery disease) Pain Ratin Pain Location: - Pain Goal: Pain 4 or less Pain Plan: prn Tomorrow's Labs & Rationales: BEP as the patient is on Digoxin
[2017-03-11 08:13] VITALS: BP 120/64
[2017-03-11 08:17] LABS: ABSOLUTE BASOPHIL COUNT 0 /CUMM (0.0-0.2); ABSOLUTE EOSINOPHIL COUNT 0.8 /CUMM (0.0-0.7); ABSOLUTE GRANULOCYTE CT 3.6 /CUMM (1.4-6.5); ABSOLUTE LYMPH COUNT 0.5 /CUMM (1.2-3.4); ABSOLUTE MONOCYTE COUNT 0.3 /CUMM (0.10-0.60); BASOPHIL % 0.2 % (0.0-2.0); EOSINOPHIL % 15.3 % (0-5); GRANULOCYTE % 67.9 % (42.2-75.2); HEMATOCRIT 29.8 % (42-52); MEAN CORPUSCULAR HGB 30.6 PG (27.0-31.0); MEAN CORPUSCULAR HGB CONC 32.4 G/DL (33.0-37.0); MEAN CORPUSCULAR VOLUME 94.5 FL (80.0-94.0); MEAN PLATELET VOLUME 6.7 FL (7.4-10.4); PLATELET COUNT 187 /CUMM (130-400); RBC DISTRIBUTION WIDTH 16.6 % (11.5-14.5); RED BLOOD CELL CT 3.15 /CUMM (4.70-6.10)
[2017-03-11] MEDS ORDERED: ELIQUIS5 M1 PO (09:05)
[2017-03-11 09:54] LABS: WHITE BLOOD CELL COUNT 5.4 /CUMM (4.8-10.8)
--- NOTE | 2017-03-11 10:29 | PN- Cardiology ---
JAMIE,[facility] 03/11/17 1028: Subjective Subjective: Patient seen and examined, he is sitting in chair sleepy, he slept well yesterday, denies any chest pain, SOB, palpitation, fever, chills and there is no chnage in the urinary or bowel habits. He feels that B/L LE swelling going decreased. Vitals stable, telemetry with no events Review of Systems Constitutional: Reports: no symptoms. EENTM: Reports: no symptoms. Cardiovascular: Reports: peripheral edema. Respiratory: Reports: no symptoms. Gastrointestinal: Reports: no symptoms. Genitourinary: Reports: no symptoms. Musculoskeletal: Reports: no symptoms. Skin: Reports: no symptoms. Neurological/Psychological: Reports: no symptoms. Hematologic/Endocrine: Reports: no symptoms. All Other Systems: Reviewed and Negative Objective Vital Signs and I&Os Vital Signs Date Time Temp Pulse Resp B/P B/P Pulse O2 O2 Flow FiO2 Mean Ox Delivery Rate 03/11 1010 69 120/64 03/11 1009 69 120/64 03/11 0813 98.4 69 18 120/64 95 Room Air 03/11 0000 Room Air 03/11 0000 99.6 68 16 110/58 92 Room Air 03/10 2119 68 124/60 03/10 1745 99.1 03/10 1641 100.0 03/10 1639 88 118/60 03/10 1629 100.0 88 20 118/60 97 Nasal 2.0L Cannula Intake & Output 03/11 1600 03/11 0800 03/11 0000 03/10 1600 03/10 0800 03/10 0000 Intake Total 240 325 793 2982 335.4 Output Total 725 729 041 1864 425 Balance -485 -30 90 -260 -89.6 Intake, IV 240 640 215.4 Intake, Oral 240 120 550 400 120 Number 1 Bowel Movements Output, Urine 725 604 867 5639 425 Patient 203 lb Weight Weight Standing Scale Measurement Method Physical Exam General Appearance: well developed/nourished, no apparent distress, alert, awake , comfortable Head: atraumatic, normal appearance Neck: normal inspection, supple, full range of motion Respiratory: normal breath sounds, chest non-tender, no respiratory distress, crackles Cardiovascular: regular rate/rhythm, edema, normal peripheral pulses Peripheral Pulses: 3+ dorsalis pedis (R), 3+ dorsalis pedis (L) Abdomen: normal bowel sounds, soft, non-tender Extremities: normal inspection, normal capillary refill, +2 edema Neurologic/Psychiatric: no motor/sensory deficits, awake, alert, oriented x 3 Current Medications: Current Medications Sig/Reji Start time Last Medication Dose Route Stop Time Status Admin Acetaminophen 500 MG .STK-MED ONE 03/10 1622 DC PO 03/10 1623 Acetaminophen 500 MG Q6P PRN 03/06 2230 AC 03/10 PO 1641 Alprazolam 0.5 MG DAILY PRN 03/05 2200 AC 03/11 PO 03/12 215 1019 Apixaban 5 MG BID 03/10 1122 AC 03/11 PO 1009 Aspirin 81 MG DAILY 03/06 1000 AC 03/11 PO 1009 Atorvastatin Calcium 40 MG 1700 03/06 1700 AC 03/10 PO 1639 Cholecalciferol 1,000 IU DAILY 03/06 1000 AC 03/11 PO 1010 Citalopram 20 MG DAILY 03/06 1000 AC 03/11 Hydrobromide PO 1009 Digoxin 0.25 MG 1700 03/07 1700 AC 03/10 PO 1639 Docusate Sodium 100 MG DAILY NEEDED PRN 03/07 2245 AC 03/11 PO 1012 Famotidine 20 MG DAILY 03/06 1000 AC 03/11 PO 1010 Furosemide 80 MG BID 03/07 220 AC 03/11 IV 1010 Isosorbide 120 MG DAILY 03/06 1000 AC 03/11 Mononitrate PO 1009 Metoprolol Tartrate 6.25 MG BID 03/05 2200 AC 03/11 PO 1010 Morphine Sulfate 4 MG Q4P PRN 03/05 213 AC IV Multivitamins 2 TAB DAILY 03/06 1000 AC 03/11 Therapeutic PO 1010 Nitroglycerin 0.4 MG Q 5 MINUTES X 3 DO.. 03/05 2200 AC SL Patient Medication 1 ED .STK-MED ONE 03/10 1407 DC Teaching ED 03/10 1408 Polyethylene Glycol 17 GM DAILY PRN 03/08 1100 AC PO Potassium Chloride 10 MEQ DAILY 03/06 1000 AC 03/11 PO 1010 Prochlorperazine 10 MG Q6 PRN 03/05 2130 AC 03/10 PO 1641 Results Last 48 Hrs of Labs/Mics: Laboratory Tests 03/11/17 0738: Anion Gap 13, Estimated GFR 49 L, BUN/Creatinine Ratio 19.3, CBC w Diff MAN DIFF ORDERED, RBC 3.15 L, MCV 94.5 H, MCH 30.6, RDW 16.6 H, MPV 6.7 L, Gran % 67.9, Lymphocytes % 10.2 L, Monocytes % 6.4, Eosinophils % 15.3 H, Basophils % 0.2, Absolute Granulocytes 3.6, Absolute Lymphocytes 0.5 L, Absolute Monocytes 0.3, Absolute Eosinophils 0.8, Absolute Basophils 0, Platelet Estimate VERIFIED BY SMEAR, Polychromasia 1+, Poikilocytosis 1+, Anisocytosis 1+, Ovalocytes 1+, PUBS MCHC 32.4 L, Digoxin Pending 03/10/17 0835: Anion Gap 11, Estimated GFR 53 L, BUN/Creatinine Ratio 18.5, APTT 74 H, CBC w Diff NO MAN DIFF REQ, RBC 2.96 L, MCV 92.4, MCH 30.7, RDW 16.6 H, MPV 6.4 L, Gran % 76.9 H, Lymphocytes % 6.4 L, Monocytes % 6.3, Eosinophils % 10.4 H, Basophils % 0 L, Absolute Granulocytes 4.4, Absolute Lymphocytes 0.4 L, Absolute Monocytes 0.4, Absolute Eosinophils 0.6, Absolute Basophils 0, PUBS MCHC 33.2 03/09/17 1710: APTT 67 H Assessment/Plan Assessment/Plan Patient is a 81 year old male who has come to the ED with worsening shortness of breath, with PMH significant for CAD s/p catheterizations, Afib, CHF, HTN, HLD, s/p pacemaker placement at [facility], and was recently discharged from there after about a month of hospitalization for management of CHF. Presented to emergency department at 03/05/2017 for chief complaint of shortness of breath, admitted to [facility] for management of CHF exacerbation. Assessment: #CAD with chronic total occlusion #Acute on chronic systolic heart failure #fib status post Recent biventricular defibrillator placement #MARY #History of diabetes, hypertension and hyperlipidemia Plan: * Check Digoxin level, continue the same dose * Patient still needs to be diurese for 1-2 days * Continue Eliquis 5mg BID * Continue Lasix 80mg IV BID * Don't restart Amiodarone * Check daily BEP * F/U record from [facility] * Strict I's and O's and daily weight * PT evaluation Continue telemetry? Yes Problem List: 1. Volume overload 2. CHF (congestive heart failure) 3. Elevated BUN AUSTYN MILLER MD 03/11/17 1446: Attending MD Review Statement Attending Statement Attending Assessment/Plan: The patient reports that he is feeling better. His shortness of breath is improving. He complains of lower some edema No recent chest pain. No palpitations. No diaphoresis. No nausea or vomiting. Vital Signs Date Time Temp Pulse Resp B/P B/P Pulse O2 O2 Flow FiO2 Mean Ox Delivery Rate 03/11 1010 69 120/64 03/11 1009 69 120/64 03/11 0813 98.4 69 18 120/64 95 Room Air 03/11 0000 Room Air 03/11 0000 99.6 68 16 110/58 92 Room Air 03/10 2119 68 124/60 03/10 1745 99.1 03/10 1641 100.0 03/10 1639 88 118/60 03/10 1629 100.0 88 20 118/60 97 Nasal 2.0L Cannula Gen: NAD HEENT: normal Lungs: rales in the bases bilaterally, normal resp. effort Heart: RRR, S1, S2, 2/6 systolic murmur Abdomen: Soft, nontender, no masses Extremities: 2+ edema Neuro: Alert and oriented x 3, cranial nerves intact Laboratory Tests 03/11 03/10 0738 0835 Chemistry Sodium (137 - 145 mmol/L) 135 L 132 L Potassium (3.5 - 5.1 mmol/L) 3.7 3.4 L Chloride (98 - 107 mmol/L) 97 L 97 L Carbon Dioxide (22 - 30 mmol/L) 25 25 Anion Gap (5 - 16) 13 11 BUN (9 - 20 mg/dL) 27 H 24 H Creatinine (0.7 - 1.2 mg/dL) 1.4 H 1.3 H Estimated GFR (>60 ml/min) 49 L 53 L BUN/Creatinine Ratio (7 - 25 %) 19.3 18.5 Coagulation APTT (25 - 37 SEC) 74 H Hematology CBC w Diff MAN DIFF ORDERED NO MAN DIFF REQ WBC (4.8 - 10.8 /CUMM) 5.4 5.7 RBC (4.70 - 6.10 /CUMM) 3.15 L 2.96 L Hgb (14.0 - 18.0 G/DL) 9.6 L 9.1 L Hct (42 - 52 %) 29.8 L 27.3 L MCV (80.0 - 94.0 FL) 94.5 H 92.4 MCH (27.0 - 31.0 PG) 30.6 30.7 RDW (11.5 - 14.5 %) 16.6 H 16.6 H Plt Count (130 - 400 /CUMM) 187 174 MPV (7.4 - 10.4 FL) 6.7 L 6.4 L Gran % (42.2 - 75.2 %) 67.9 76.9 H Lymphocytes % (20.5 - 51.1 %) 10.2 L 6.4 L Monocytes % (1.7 - 9.3 %) 6.4 6.3 Eosinophils % (0 - 5 %) 15.3 H 10.4 H Basophils % (0.0 - 2.0 %) 0.2 0 L Absolute Granulocytes (1.4 - 6.5 /CUMM) 3.6 4.4 Absolute Lymphocytes (1.2 - 3.4 /CUMM) 0.5 L 0.4 L Absolute Monocytes (0.10 - 0.60 /CUMM) 0.3 0.4 Absolute Eosinophils (0.0 - 0.7 /CUMM) 0.8 0.6 Absolute Basophils (0.0 - 0.2 /CUMM) 0 0 Platelet Estimate (ADEQUATE) VERIFIED BY SMEAR Polychromasia 1+ Poikilocytosis 1+ Anisocytosis 1+ Ovalocytes 1+ PUBS MCHC (33.0 - 37.0 G/DL) 32.4 L 33.2 Toxicology Digoxin (0.8 - 2.0 ng/mL) 1.1 03/09 1710 Coagulation APTT (25 - 37 SEC) 67 H Assessment: 1. CAD with chronic total occlusion 2. Acute on chronic systolic heart failure 3. Recent biventricular defibrillator placement Plan: * Continue IV Lasix * Continue digoxin * Do not restart amiodarone given interaction with digoxin and given that the patient is in atrial fibrillation * Continue other medications * Check basic metabolic profile daily
[2017-03-11 16:14] VITALS: BP 120/70
[2017-03-11 22:00] VITALS: BP 94/58
[2017-03-11] MEDS ORDERED: DIGOXIN250 MCG PO (23:09)
--- NOTE | 2017-03-12 07:25 | PN- Housestaff ---
Subjective Follow-up For: chf exacerbation Tele-Events Since Last Visit: spaced hr 60-63 Review of Systems Constitutional: Denies: chills, fever. Cardiovascular: Denies: chest pain, palpitations. Respiratory: Denies: cough, short of breath, sputum production. Gastrointestinal: Denies: abdominal pain, constipation, diarrhea, nausea, vomiting. Objective Last 24 Hrs of Vital Signs/I&O Vital Signs Date Time Temp Pulse Resp B/P B/P Pulse O2 O2 Flow FiO2 Mean Ox Delivery Rate 03/12 1024 70 104/58 03/12 1024 70 104/58 03/12 0800 97.9 70 18 104/58 98 Room Air 03/11 2200 98.2 61 18 94/58 94 Room Air 03/11 2143 61 94/58 03/11 1659 60 120/70 03/11 1614 98.5 70 20 120/70 94 03/11 1600 Nasal 2.0L Cannula Intake & Output 03/12 1600 03/12 0800 03/12 0000 Intake Total 480 360 620 Output Total 600 500 800 Balance -120 -140 -180 Intake, IV 20 Intake, Oral 480 360 600 Output, Urine 600 500 800 Patient 90.718 kg Weight Weight Standing Scale Measurement Method Physical Exam General Appearance: Alert, Oriented X3, Cooperative, No Acute Distress Cardiovascular: Regular Rate, Normal S1, Normal S2, No Murmurs Lungs: Clear to Auscultation, Normal Air Movement Abdomen: Normal Bowel Sounds, Soft, No Tenderness Extremities: No Clubbing, No Cyanosis, b/l lle edema 2+ Current Medications: Current Medications Sig/Reji Start time Last Medication Dose Route Stop Time Status Admin Acetaminophen 500 MG Q6P PRN 03/06 2230 AC 03/10 PO 1641 Alprazolam 0.5 MG DAILY PRN 03/05 2200 AC 03/11 PO 03/12 2159 1019 Apixaban 5 MG BID 03/10 1122 AC 03/12 PO 1024 Aspirin 81 MG DAILY 03/06 1000 AC 03/12 PO 1024 Atorvastatin Calcium 40 MG 1700 03/06 1700 AC 03/11 PO 1659 Bumetanide 3 MG BID 03/12 1045 AC 03/12 PO 1155 Cholecalciferol 1,000 IU DAILY 03/06 1000 AC 03/12 PO 1024 Citalopram 20 MG DAILY 03/06 1000 AC 03/12 Hydrobromide PO 1024 Digoxin 0.25 MG 1700 03/07 1700 AC 03/11 PO 1659 Docusate Sodium 100 MG DAILY NEEDED PRN 03/07 2245 AC 03/12 PO 1155 Famotidine 20 MG DAILY 03/06 1000 AC 03/12 PO 1024 Furosemide 80 MG BID 03/07 2200 DC 03/11 IV 2041 Isosorbide 120 MG DAILY 03/06 1000 AC 03/12 Mononitrate PO 1024 Metoprolol Tartrate 6.25 MG BID 03/05 220 AC 03/12 PO 1024 Morphine Sulfate 4 MG Q4P PRN 03/05 2130 AC IV Multivitamins 2 TAB DAILY 03/06 1000 AC 03/12 Therapeutic PO 1024 Nitroglycerin 0.4 MG Q 5 MINUTES X 3 DO.. 03/05 2200 AC SL Polyethylene Glycol 17 GM DAILY PRN 03/08 1100 AC PO Potassium Chloride 10 MEQ DAILY 03/06 1000 AC 03/12 PO 1024 Prochlorperazine 10 MG Q6 PRN 03/05 2130 AC 03/10 PO 1641 Assessment/Plan Assessment: Patient is a 81 year old male who has come to the ED with worsening shortness of breath, with PMH significant for CAD s/p catheterizations, Afib, CHF, HTN, HLD, s/p pacemaker placement at [facility], and was recently discharged from there after about a month of hospitalization. He is currently being managed in the telemetry floor for the following issues: Problem List: -CHF exacerbation -Acute kidney injury -Anemia -Hypertension -Hyperlipidemia Plan: -Continue Telemetry -Oxygen tpaered to room air -ACS ruled out already -Amiodarone , Heparin gtt, Dobutamin gtt discontinued -Continue Aspirin/Metoprolol/NTG -Continue Atorvastatin 40mg PO Daily -d/c lasix, bumax 3mg bid -Continue Digoxin 0.25mcg PO Daily -Pulmonology consultation has signed off saying no active pulm issues on 03/09/17 -Heart Healthy Diet -DVT PPx -FULL CODE -Follow up CT chest Problem List: 1. CHF (congestive heart failure) Pain Ratin Pain Location: none Pain Goal: Remain pain free Pain Plan: mpp Tomorrow's Labs & Rationales: bep
[2017-03-12 08:00] VITALS: BP 104/58
--- NOTE | 2017-03-12 08:57 | PN- Cardiology ---
Subjective Subjective: Shortness of breath somewhat better. No chest pain. No palpitations. No lightheadedness or dizziness. No diaphoresis. Objective Vital Signs and I&Os Vital Signs Date Time Temp Pulse Resp B/P B/P Pulse O2 O2 Flow FiO2 Mean Ox Delivery Rate 03/12 0800 97.9 70 18 104/58 98 Room Air 03/11 2200 98.2 61 18 94/58 94 Room Air 03/11 2143 61 94/58 03/11 1659 60 120/70 03/11 1614 98.5 70 20 120/70 94 03/11 1600 Nasal 2.0L Cannula 03/11 1010 69 120/64 03/11 1009 69 120/64 Intake & Output 03/12 1600 03/12 0800 03/12 0000 03/11 1600 03/11 0800 03/11 0000 Intake Total 360 620 800 240 120 Output Total 500 800 650 725 150 Balance -140 -180 150 -485 -30 Intake, IV 20 Intake, Oral 360 600 800 240 120 Number 1 Bowel Movements Output, Urine 500 800 650 725 150 Patient 200 lb Weight Weight Standing Scale Measurement Method Physical Exam: Gen: NAD HEENT: normal Lungs: rales in the bases bilaterally, normal resp. effort Heart: RRR, S1, S2, 2/6 systolic murmur Abdomen: Soft, nontender, no masses Extremities: 2+ edema Neuro: Alert and oriented x 3, cranial nerves intact Current Medications: Current Medications Sig/Reji Start time Last Medication Dose Route Stop Time Status Admin Acetaminophen 500 MG Q6P PRN 03/06 2230 AC 03/10 PO 1641 Alprazolam 0.5 MG DAILY PRN 03/05 2200 AC 03/11 PO 03/12 2159 1019 Apixaban 5 MG BID 03/10 1122 AC 03/11 PO 2040 Aspirin 81 MG DAILY 03/06 1000 AC 03/11 PO 1009 Atorvastatin Calcium 40 MG 1700 03/06 1700 AC 03/11 PO 1659 Cholecalciferol 1,000 IU DAILY 03/06 1000 AC 03/11 PO 1010 Citalopram 20 MG DAILY 03/06 1000 AC 03/11 Hydrobromide PO 1009 Digoxin 0.25 MG 1700 03/07 1700 AC 03/11 PO 1659 Docusate Sodium 100 MG .STK-MED ONE 03/11 1002 DC PO 03/11 1003 Docusate Sodium 100 MG DAILY NEEDED PRN 03/07 2245 AC 03/11 PO 1012 Famotidine 20 MG DAILY 03/06 1000 AC 03/11 PO 1010 Furosemide 80 MG BID 03/07 220 AC 03/11 IV 2041 Isosorbide 120 MG DAILY 03/06 1000 AC 03/11 Mononitrate PO 1009 Metoprolol Tartrate 6.25 MG BID 03/05 220 AC 03/11 PO 1010 Morphine Sulfate 4 MG Q4P PRN 03/05 213 AC IV Multivitamins 2 TAB DAILY 03/06 1000 AC 03/11 Therapeutic PO 1010 Nitroglycerin 0.4 MG Q 5 MINUTES X 3 DO.. 03/05 2200 AC SL Polyethylene Glycol 17 GM DAILY PRN 03/08 1100 AC PO Potassium Chloride 10 MEQ DAILY 03/06 1000 AC 03/11 PO 1010 Prochlorperazine 10 MG Q6 PRN 03/05 213 AC 03/10 PO 1641 Results Last 48 Hrs of Labs/Mics: Laboratory Tests 03/12/17 0720: Anion Gap 10, Estimated GFR 53 L, BUN/Creatinine Ratio 24.6 03/12/17 0600: ESR Westergren Cancelled, Lyme Disease Antibody Cancelled 03/11/17 0738: Anion Gap 13, Estimated GFR 49 L, BUN/Creatinine Ratio 19.3, CBC w Diff MAN DIFF ORDERED, RBC 3.15 L, MCV 94.5 H, MCH 30.6, RDW 16.6 H, MPV 6.7 L, Gran % 67.9, Lymphocytes % 10.2 L, Monocytes % 6.4, Eosinophils % 15.3 H, Basophils % 0.2, Absolute Granulocytes 3.6, Absolute Lymphocytes 0.5 L, Absolute Monocytes 0.3, Absolute Eosinophils 0.8, Absolute Basophils 0, Platelet Estimate VERIFIED BY SMEAR, Polychromasia 1+, Poikilocytosis 1+, Anisocytosis 1+, Ovalocytes 1+, PUBS MCHC 32.4 L, Digoxin 1.1 Assessment/Plan Assessment/Plan Assessment: 1. CAD with chronic total occlusion 2. Acute on chronic systolic heart failure 3. Recent biventricular defibrillator placement Plan: * Discontinue IV Lasix * Start Bumex 3 mg by mouth twice a day * Check basic metabolic profile in the morning * Possible discharge to home tomorrow if stable * Monitor input and output * Ambulate with assistance Continue telemetry? Yes
[2017-03-12 16:02] VITALS: BP 126/62
[2017-03-13 00:17] VITALS: BP 118/72
--- NOTE | 2017-03-13 07:23 | PN- Housestaff ---
Subjective Follow-up For: CHF exacerbation Tele-Events Since Last Visit: Sinus paced heart rate between 60-66 Subjective: Patient seen and examined this morning. He was lying in bed in no acute distress. Denies any shortness of breath, chest pain, palpitation. He is to be discharged home today with home health services. Review of Systems Constitutional: Denies: chills, fever. Cardiovascular: Denies: chest pain, palpitations. Respiratory: Denies: cough, short of breath, sputum production. Gastrointestinal: Denies: abdominal pain, constipation, diarrhea, nausea, vomiting. Objective Last 24 Hrs of Vital Signs/I&O Vital Signs Date Time Temp Pulse Resp B/P B/P Pulse O2 O2 Flow FiO2 Mean Ox Delivery Rate 03/13 1105 61 118/72 03/13 1104 61 118/72 03/13 0017 98.2 61 18 118/72 96 Room Air 03/12 2210 68 106/58 03/12 1708 126/62 03/12 1602 98.1 80 18 126/62 95 Room Air Intake & Output 03/13 1600 03/13 0800 03/13 0000 Intake Total 200 800 Output Total 550 1325 Balance -350 -525 Intake, Oral 200 800 Output, Urine 550 1325 Patient 89.811 kg Weight Weight Standing Scale Measurement Method Physical Exam General Appearance: Alert, Oriented X3, Cooperative, No Acute Distress Cardiovascular: Regular Rate, Normal S1, Normal S2, No Murmurs Lungs: Clear to Auscultation, Normal Air Movement Abdomen: Normal Bowel Sounds, Soft, No Tenderness Extremities: bilateral lower extremity edema 2+ Current Medications: Current Medications Sig/Reji Start time Last Medication Dose Route Stop Time Status Admin Acetaminophen 500 MG Q6P PRN 03/06 2230 AC 03/10 PO 1641 Alprazolam 0.5 MG DAILY PRN 03/05 2200 DC 03/11 PO 03/12 2159 1019 Apixaban 5 MG BID 03/10 1122 AC 03/12 PO 2211 Aspirin 81 MG DAILY 03/06 1000 AC 03/13 PO 1104 Atorvastatin Calcium 40 MG 1700 03/06 1700 AC 03/12 PO 1708 Bumetanide 3 MG BID 03/12 1045 AC 03/13 PO 1105 Cholecalciferol 1,000 IU DAILY 03/06 1000 AC 03/13 PO 1105 Citalopram 20 MG DAILY 03/06 1000 AC 03/13 Hydrobromide PO 1104 Digoxin 0.25 MG 1700 03/07 1700 AC 03/12 PO 1708 Docusate Sodium 100 MG .STK-MED ONE 03/12 1157 DC PO 03/12 1158 Docusate Sodium 100 MG DAILY NEEDED PRN 03/07 2245 AC 03/12 PO 1155 Famotidine 20 MG DAILY 03/06 1000 AC 03/13 PO 1105 Isosorbide 120 MG DAILY 03/06 1000 AC 03/13 Mononitrate PO 1104 Metoprolol Tartrate 6.25 MG BID 03/05 2200 AC 03/13 PO 1105 Morphine Sulfate 4 MG Q4P PRN 03/05 2130 DC IV Multivitamins 2 TAB DAILY 03/06 1000 AC 03/13 Therapeutic PO 1105 Nitroglycerin 0.4 MG Q 5 MINUTES X 3 DO.. 03/05 220 AC SL Polyethylene Glycol 17 GM DAILY PRN 03/08 1100 AC PO Potassium Chloride 10 MEQ DAILY 03/06 1000 AC 03/13 PO 1105 Prochlorperazine 10 MG Q6 PRN 03/05 2130 AC 03/10 PO 1641 Last 24 Hrs of Lab/Maco Results Last 24 Hrs of Labs/Mics: Laboratory Tests 03/13/17 0656: Anion Gap 13, Estimated GFR 53 L, BUN/Creatinine Ratio 23.8 Assessment/Plan Assessment: Patient is a 81 year old male who has come to the ED with worsening shortness of breath, with PMH significant for CAD s/p catheterizations, Afib, CHF, HTN, HLD, s/p pacemaker placement at [facility], and was recently discharged from there after about a month of hospitalization. He is currently being managed in the telemetry floor for the following issues: Problem List: -CHF exacerbation -Acute kidney injury -Anemia -Hypertension -Hyperlipidemia Plan: -Continue Telemetry -Oxygen tpaered to room air -ACS ruled out already -Amiodarone , Heparin gtt, Dobutamin gtt discontinued -Continue Aspirin/Metoprolol/NTG -Continue Atorvastatin 40mg PO Daily -d/c lasix, bumax 3mg bid started -Continue Digoxin 0.25mcg PO Daily -Pulmonology consultation has signed off saying no active pulm issues on 03/09/17 Patient advised to follow-up with cardiology one week. -Heart Healthy Diet -DVT PPx -FULL CODE -Follow up CT chest Problem List: 1. CHF (congestive heart failure) Pain Ratin Pain Location: None Pain Goal: Remain pain free Pain Plan: Mild pain pathway Tomorrow's Labs & Rationales: None patient to be discharged Discharge Plan Discharge Disposition: home Stable for Discharge? Yes Anticipated Discharge (Day): today
--- NOTE | 2017-03-13 07:28 | PN- Cardiology ---
Subjective Subjective: Shortness of breath is improving. He is urinating well on the Bumex. No chest pain. No palpitations. No diaphoresis. No lightheadedness or dizziness. Objective Vital Signs and I&Os Vital Signs Date Time Temp Pulse Resp B/P B/P Pulse O2 O2 Flow FiO2 Mean Ox Delivery Rate 03/13 0017 98.2 61 18 118/72 96 Room Air 03/12 2210 68 106/58 03/12 1708 126/62 03/12 1602 98.1 80 18 126/62 95 Room Air 03/12 1024 70 104/58 03/12 1024 70 104/58 03/12 0800 97.9 70 18 104/58 98 Room Air Intake & Output 03/13 0800 03/13 0000 03/12 1600 03/12 0800 03/12 0000 03/11 1600 Intake Total 800 480 360 620 800 Output Total 1325 600 500 800 650 Balance -525 -120 -140 -180 150 Intake, IV 20 Intake, Oral 800 480 360 600 800 Number 1 Bowel Movements Output, Urine 1325 600 500 800 650 Patient 198 lb 200 lb Weight Weight Standing Scale Standing Scale Measurement Method Physical Exam: Gen: NAD HEENT: normal Lungs: rales in the bases bilaterally, normal resp. effort Heart: RRR, S1, S2, 2/6 systolic murmur Abdomen: Soft, nontender, no masses Extremities: 2+ edema Neuro: Alert and oriented x 3, cranial nerves intact Current Medications: Current Medications Sig/Reji Start time Last Medication Dose Route Stop Time Status Admin Acetaminophen 500 MG Q6P PRN 03/06 2230 AC 03/10 PO 1641 Alprazolam 0.5 MG DAILY PRN 03/05 2200 DC 03/11 PO 03/12 2159 1019 Apixaban 5 MG BID 03/10 1122 AC 03/12 PO 2211 Aspirin 81 MG DAILY 03/06 1000 AC 03/12 PO 1024 Atorvastatin Calcium 40 MG 1700 03/06 1700 AC 03/12 PO 1708 Bumetanide 3 MG BID 03/12 1045 AC 03/12 PO 2210 Cholecalciferol 1,000 IU DAILY 03/06 1000 AC 03/12 PO 1024 Citalopram 20 MG DAILY 03/06 1000 AC 03/12 Hydrobromide PO 1024 Digoxin 0.25 MG 1700 03/07 1700 AC 03/12 PO 1708 Docusate Sodium 100 MG .STK-MED ONE 03/12 1157 DC PO 03/12 1158 Docusate Sodium 100 MG DAILY NEEDED PRN 03/07 2245 AC 03/12 PO 1155 Famotidine 20 MG DAILY 03/06 1000 AC 03/12 PO 1024 Furosemide 80 MG BID 03/07 220 DC 03/11 IV 2041 Isosorbide 120 MG DAILY 03/06 1000 AC 03/12 Mononitrate PO 1024 Metoprolol Tartrate 6.25 MG BID 03/05 220 AC 03/12 PO 2210 Morphine Sulfate 4 MG Q4P PRN 03/05 213 DC IV Multivitamins 2 TAB DAILY 03/06 1000 AC 03/12 Therapeutic PO 1024 Nitroglycerin 0.4 MG Q 5 MINUTES X 3 DO.. 03/05 2200 AC SL Polyethylene Glycol 17 GM DAILY PRN 03/08 1100 AC PO Potassium Chloride 10 MEQ DAILY 03/06 1000 AC 03/12 PO 1024 Prochlorperazine 10 MG Q6 PRN 03/05 2130 AC 03/10 PO 1641 Results Last 48 Hrs of Labs/Mics: Laboratory Tests 03/13/17 0656: Sodium Pending, Potassium Pending, Chloride Pending, Carbon Dioxide Pending, Anion Gap Pending, BUN Pending, Creatinine Pending, BUN/Creatinine Ratio Pending 03/12/17 0720: Anion Gap 10, Estimated GFR 53 L, BUN/Creatinine Ratio 24.6 03/12/17 0600: ESR Westergren Cancelled, Lyme Disease Antibody Cancelled 03/11/17 0738: Anion Gap 13, Estimated GFR 49 L, BUN/Creatinine Ratio 19.3, CBC w Diff MAN DIFF ORDERED, RBC 3.15 L, MCV 94.5 H, MCH 30.6, RDW 16.6 H, MPV 6.7 L, Gran % 67.9, Lymphocytes % 10.2 L, Monocytes % 6.4, Eosinophils % 15.3 H, Basophils % 0.2, Absolute Granulocytes 3.6, Absolute Lymphocytes 0.5 L, Absolute Monocytes 0.3, Absolute Eosinophils 0.8, Absolute Basophils 0, Platelet Estimate VERIFIED BY SMEAR, Polychromasia 1+, Poikilocytosis 1+, Anisocytosis 1+, Ovalocytes 1+, PUBS MCHC 32.4 L, Digoxin 1.1 Assessment/Plan Assessment/Plan Assessment: 1. CAD with chronic total occlusion 2. Acute on chronic systolic heart failure 3. Recent biventricular defibrillator placement Plan: * Continue Bumex 3 mg by mouth twice a day * Continue other cardiac medications * Discharge to home today * Please arrange visiting nurse * Follow up in the office with me next Thursday. Continue telemetry? Yes
[2017-03-13] MEDS ORDERED: ELIQUIS5 M1 PO ×2 (07:36→07:43)
[2017-03-13] MEDS ORDERED: DIGOXIN250 MCG PO ×2 (07:36→07:43)
[2017-03-13] MEDS ORDERED: BUMETANIDE1 M1 PO ×2 (07:36→07:43)
--- NOTE | 2017-03-13 07:43 | Patient Discharge Instructions ---
Discharge Instructions General Discharge Information You were seen/treated for: 1. CAD with chronic total occlusion 2. Acute on chronic systolic heart failure 3. 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 Take medications as instructed. Diet Recommended Diet: Heart Healthy Activity Activity Self Limited: Yes Acute Coronary Syndrome Inclusion Criteria At DC or during hospital stay patient has or had the following: ACS DIAGNOSIS No Discharge Core Measures Meds if any: Prescribed or Continued at Discharge Meds if any: NOT Prescribed or Continued at Discharge Congestive Heart Failure Inclusion Criteria At DC or during hospital stay patient has or had the following: CHF DIAGNOSIS No Discharge Core Measures Meds if any: Prescribed or Continued at Discharge Meds if any: NOT Prescribed or Continued at Discharge Cerebrovascular accident Inclusion Criteria At DC or during hospital stay patient has or had the following: CVA/TIA Diagnosis No Discharge Core Measures Meds if any: Prescribed or Continued at Discharge Meds if any: NOT Prescribed or Continued at Discharge Venous thromboembolism Inclusion Criteria VTE Diagnosis No VTE Type NONE VTE Confirmed by (Test) NONE Discharge Core Measures - Per Current guidelines, there needs to be overlap - treatment for the first 5 days of Warfarin therapy. - If discharged on Warfarin prior to 5 days of - overlap therapy, the patient will need to be - assessed for post discharge needs including - *Post discharge parental anticoagulation - *Warfarin and/or parental anticoagulation education - *Follow up date to check INR post discharge At least 5 days overlap therapy as Inpatient No Meds if any: Prescribed or Continued at Discharge Note: Overlap Therapy is Warfarin and Anticoagulant Meds if any: NOT Prescribed or Continued at Discharge
[2017-03-13 11:05] VITALS: BP 118/72
--- NOTE | 2017-03-13 11:57 | Discharge Summary ---
Visit Information Visit Dates Admission Date: 03/05/17 Discharge Date: 03/13/17 Hospital Course Course Attending Physician: AUSTYN MILLER MD Primary Care Physician: JEAN PIERRE CONTEH,DOMIINC Sanchez Hospital Course: Patient is a 81 year old male who has come to the ED with worsening shortness of breath, with PMH significant for CAD s/p catheterizations, Afib, CHF, HTN, HLD, s/p pacemaker placement at [facility], and was recently discharged from there after about a month of hospitalization for management of CHF. Presented to emergency department at 03/05/2017 for chief complaint of shortness of breath, admitted to [facility] for management of CHF exacerbation. In the ED patient was found to have elevated troponin to 0.14 as well as elevated ProBNP (3630, increased from 1380) and D-dimer of 1729. Also found to have elevated Cr:1.6 (up from 1.1 in December 2016), and low Hb:10.2 (down from 12.1 in December 2016). Patient was admitted to telemetry for close cardiac monitoring. Assessment: #CAD with chronic total occlusion #Acute on chronic systolic heart failure #fib status post Recent biventricular defibrillator placement #MARY #History of diabetes, hypertension and hyperlipidemia Acute on chronic systolic heart failure/Afib status post Recent biventricular defibrillator placement: He was started on dobutamine drip and heparin drip, lasix, oxygen suplemenation, troponin trended deemed likely to be secondary to demand ischemia, ECHO obtained , records from [facility] reviewed, his symptoms improved over course of admission. IV heparin drip was d/c and was trasitioned to eliquis. patient was started on digoxin, lasix was transitioned to bumex upon discharge. Amiadrone was d/c given interaction with digoxin and given that the patient is in atrial fibrillation. He was advised to follow up with within one week. MARY Creatnine upon presentation 1.6, improved to 1.3 upon discharge which is around his baseline. History of CHF, CAD, HTN, HLD Continued beta ángel, statin and aspirin Heart healthy diet DVT px eliquis Full code Allergies: Coded Allergies: gabapentin (From NEURONTIN) (Intermediate, INCREASED AGGITATION 11/20/16) prednisone (11/20/16) hydrocodone (GI DISTRESS 11/20/16) oxycodone (GI DISTRESS 11/20/16) Disposition Summary Disposition Principal Diagnosis: 1. CAD with chronic total occlusion 2. Acute on chronic systolic heart failure Additional Diagnosis: 3. 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 Take medications as instructed. Medications at Discharge Discharge Medications: Stop taking the following medications: Garlic (Garlic Oil) 1,000 MG CAPSULE ORAL DAILY Furosemide (Lasix) 80 MG TABLET ORAL THREE TIMES DAILY Amiodarone HCl (Amiodarone HCl) 200 MG TABLET ORAL DAILY Continue taking these medications: Multivitamin (Multiple Vitamins) 1 EACH TABLET 2 Tablet ORAL DAILY Comments: Last Taken: 03/12/17 Time: 10:00 AM Metoprolol Succinate (Metoprolol Succinate) 25 MG TAB 0.25 Tablet ORAL TWICE DAILY Comments: Last Taken: 03/12/17 Time: 10:00 PM Zinc Gluconate (ZINC) 50 MG TABLET 1 Tablet ORAL DAILY Comments: NOT TAKEN IN HOSPITAL Citalopram Hydrobromide (Citalopram HBr) 20 MG TABLET 1 Tablet ORAL DAILY Qty = 90 Comments: Last Taken: 03/12/17 Time: 10:00 AM Aspirin (Aspirin*) 81 MG TAB.CHEW 1 Tablet ORAL DAILY Comments: Last Taken: 03/12/17 Time: 10:00 AM Nitroglycerin (Nitroglycerin) 0.4 MG TAB.SUBL 1 Tablet SUBLINGUAL As Directed as needed for CHEST PAIN Instructions: 1st sign of attack; may repeat every 5 minutes until relief; if pain persists after 3 tablets in 15 minutes, prompt medical att Comments: NOT TAKEN IN THE HOSPITAL Isosorbide Mononitrate (Isosorbide Mononitrate ER) 60 MG TAB.ER.24H 2 Tablet ORAL DAILY Qty = 135 Comments: Last Taken: 03/12/17 Time: 10:00 AM Atorvastatin Calcium (Lipitor) 40 MG TABLET 1 Tablet ORAL DAILY Comments: Last Taken: 03/12/17 Time: 5:00 PM Potassium Chloride (Potassium Chloride) 10 MEQ TAB.ER.PRT 1 Tablet ORAL DAILY Qty = 90 Comments: Last Taken: 03/12/17 Time: 10:00 AM Cholecalciferol (Vitamin D3) (Vitamin D) 1,000 UNIT TABLET 1 Tablet ORAL DAILY Comments: Last Taken: 03/12/17 Time: 10:00 AM Alprazolam (Alprazolam) 0.5 MG TABLET 1 Tablet ORAL DAILY as needed for ANXIETY Comments: Last Taken: 03/11/17 Time: 10:00 AM Famotidine (Famotidine) 20 MG TABLET 1 Tablet ORAL DAILY Qty = 30 Comments: Last Taken: 03/12/17 Time: 10:00 AM Start taking the following new medications: Apixaban (Eliquis) 5 MG TABLET 1 Tablet ORAL TWICE DAILY Qty = 60 No Refills Comments: Last Taken: 03/12/17 Time: 10:00 AM Bumetanide (Bumetanide) 1 MG TABLET 3 Tablet ORAL TWICE DAILY Qty = 180 No Refills Comments: Last Taken: 03/12/17 Time: 10:00 PM Digoxin (Digoxin) 250 MCG TABLET 1 Tablet ORAL 5 PM Qty = 30 No Refills Comments: Last Taken: 03/12/17 Time: 5:00 PM Copies To: JEAN PIERRE CONTEH,DOMINIC Sanchez; AUSTYN MILLER MD, MD, SUDIPTA A; AUSTYN MILLER MD
== END 2017-03-13 12:35 | disposition home health service (06) | DRG 292 ==
LOC: ERH 15:45 → 1NO 19:00 → ERHI 19:00 → ENRESERV 21:05 → ENTRNSPT 22:29 → 1NO 22:50 → CMPTRNSPT 23:04 → ENPENDDIS 03-13 07:48 → 1NO 03-13 12:35
PROVIDERS: Emergency Medicine; Internal Medicine; Internal Medicine Hematology & Oncology; Internal Medicine Interventional Cardiology; Ophthalmology; Student in an Organized Health Care Education/Training Program; ADMIT Internal Medicine Cardiovascular Disease
DX: I11.0 Hypertensive heart disease with heart failure (principal); N17.9 Acute kidney failure, unspecified; I50.23 Acute on chronic systolic (congestive) heart failure; I25.10 Atherosclerotic heart disease of native coronary artery without angina pectoris; I48.2 Chronic atrial fibrillation; E78.5 Hyperlipidemia, unspecified; I25.2 Old myocardial infarction; Z95.0 Presence of cardiac pacemaker; Z87.891 Personal history of nicotine dependence
CPT/HCPCS: 1NP; 86618; 87184; 36415; 78582; 81001; 82436; 87040; 87086; 87147; 93005; 93010; 93306; 93970; 96374; 96375; 97112-GO; 97116-GO; 97161-GP; 99291; A9540; A9558; J0696; J1644; J1940; J3250; J3490

== ENCOUNTER 2017-10-23 16:02 | Emergency (ER) | payer OTHER, MEDICARE ==
[~2017-10-23] VITALS: Ht 172.7 cm; Wt 93.0 kg
[~2017-10-23 16:02] MED LIST changes: +ALPRAZOLAM0.5 M4 PO; +AMIODARONE HCL200 M1 PO; +BUMETANIDE1 M1 PO; +DIGOXIN250 MCG PO; +ELIQUIS5 M1 PO; +FAMOTIDINE20 M1 PO; +HYDROXYZINE HCL25 M2 PO; +LIPITOR40 M1 PO; +POTASSIUM CHLO10 ME5 PO; +VITAMIN D1000 UNIT PO
[2017-10-23 16:17] VITALS: BP 117/70
--- NOTE | 2017-10-23 16:31 | ED SKIN/ALLERGY COMPLAINT ---
History of Present Illness General Chief Complaint: Suture Removal/Wound Recheck Stated Complaint: PT NEEDS WOUND CHANGE Source: patient, family, old records Exam Limitations: no limitations Vital Signs & Intake/Output Vital Signs & Intake/Output ED Intake and Output 10/24 0000 10/23 1200 Intake Total Output Total Balance Patient 205 lb Weight Weight Reported by Patient Measurement Method Allergies Coded Allergies: gabapentin (From NEURONTIN) (Intermediate, INCREASED AGGITATION 10/23/17) prednisone ( 10/23/17) hydrocodone (GI DISTRESS 10/23/17) oxycodone (GI DISTRESS 10/23/17) Reconcile Medications Alprazolam 0.5 MG TABLET 1 TAB PO DAILY PRN ANXIETY (Reported) Apixaban (Eliquis) 5 MG TABLET 1 TAB PO BID BLOOD THINNER Aspirin (Aspirin*) 81 MG TAB.CHEW 1 TAB PO DAILY HEART HEALTH (Reported) Atorvastatin Calcium (Lipitor) 40 MG TABLET 1 TAB PO DAILY CHOLESTEROL ( Reported) Bumetanide 1 MG TABLET 3 TAB PO BID heart health Cholecalciferol (Vitamin D3) (Vitamin D) 1,000 UNIT TABLET 1 TAB PO DAILY SUPPLEMENT (Reported) Citalopram Hydrobromide (Citalopram HBr) 20 MG TABLET 1 TAB PO DAILY MENTAL HEALTH (Reported) Digoxin 250 MCG TABLET 1 TAB PO 1700 CHF, AFIB Famotidine 20 MG TABLET 1 TAB PO DAILY GI (Reported) Isosorbide Mononitrate (Isosorbide Mononitrate ER) 60 MG TAB.ER.24H 2 TAB PO DAILY HEART (Reported) Metoprolol Succinate 25 MG TAB 0.25 TAB PO BID HEART/BP (Reported) Multivitamin (Multiple Vitamins) 1 EACH TABLET 2 TAB PO DAILY SUPPLEMENT ( Reported) Nitroglycerin 0.4 MG TAB.SUBL 1 TAB SL AD PRN CHEST PAIN (Reported) 1st sign of attack; may repeat every 5 minutes until relief; if pain persists after 3 tablets in 15 minutes, prompt medical att Potassium Chloride 10 MEQ TAB.ER.PRT 1 TAB PO DAILY SUPPLEMENT (Reported) Zinc Gluconate (ZINC) 50 MG TABLET 1 TAB PO DAILY SUPPLEMENT (Reported) Triage Note: TRIAGE: PT TO ER FOR WOUND CHECK, STATES HE WAS TOLD TO COME BACK YESTERDAY FOR RECHECK AND THEN RETURN ON THURSDAY FOR SUTURE REMOVAL. STATES HE CUT IT WITH A RAZOR ON Thursday10/18/17. WHITNEY DE LEÓN INTO TRIAGE TO EVALUATE PATIENT. Triage Nurses Notes Reviewed? yes Onset: Gradual Duration: day(s): Timing: recent history Severity: moderate Location: extremities HPI: 81-year-old male presents emergency department requesting wound check. Patient sustained laceration to left thumb with a razor blade on 10/19/17. Laceration was closed with 2 stitches and patient was instructed to return for wound check on 10/22. Patient cannot come in yesterday however he is presenting today for wound check. Patient has been wearing splint given laceration above his thumb joint. Patient has Original Dressing from Visit on 10/19. Patient denies fevers , chills, significant pain, redness to hand or arm. Past History Travel History Traveled to [place] past 21 day No Medical History Any Pertinent Medical History? 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 No Review of Systems Review of Systems Constitutional: Reports: no symptoms. EENTM: Reports: no symptoms. Respiratory: Reports: no symptoms. Cardiovascular: Reports: no symptoms. GI: Reports: no symptoms. Genitourinary: Reports: no symptoms. Musculoskeletal: Reports: see HPI. Skin: Reports: see HPI. Neurological/Psychological: Reports: no symptoms. Hematologic/Endocrine: Reports: no symptoms. Immunologic/Allergic: Reports: no symptoms. All Other Systems: Reviewed and Negative Physical Exam Physical Exam General Appearance: well developed/nourished, no apparent distress, alert, awake Head: atraumatic, normal appearance Eyes: Bilateral: normal appearance. Ears, Nose, Throat: hearing grossly normal Neck: normal inspection, supple, full range of motion Respiratory: no respiratory distress Cardiovascular: normal peripheral pulses Peripheral Pulses: 2+ radial (L) Extremities: healing laceration to left thumb with [address], no surrounding erythema, swelling, warmth, or tenderness Neurologic/Psych: awake, alert, oriented x 3 Skin: see laceration above Progress Differential Diagnosis: abscess/cellulitis, allergic reaction, contact dermatitis, laceration Plan of Care: Laceration is healing appropriately, stitches are in place. Area was redressed, patient to follow-up in 2-3 days for removal of stitches. No evidence of surrounding cellulitis or skin infection. The patient agrees with the plan of care. Old chart reviewed. Departure Departure Disposition: HOME OR SELF CARE Condition: Stable Clinical Impression Primary Impression: Encounter for wound re-check Referrals: Doreen CONTEH,Guy Liu (PCP/Family) Additional Instructions: Return in 2-3 days for removal of stitches. Keep area clean and dry. Departure Forms: Customer Survey General Discharge Information
== END 2017-10-23 16:41 ==
LOC: ERH 16:02
DX: Z48.01 Encounter for change or removal of surgical wound dressing (principal)